=== PATIENT | female | born 1950 | race Caucasian/White ===

== ENCOUNTER → 2020-12-06 10:20 | Outpatient (CLI) | payer MEDICARE, SELFPAY ==
--- NOTE | ~2020-12-06 | MM_ITS ---
EXAMINATION: MM screening [facility] w jayde HISTORY: Screening mammogram TECHNIQUE: Craniocaudal and mediolateral oblique 3-D tomosynthesis images were obtained and synthetic 2-D images were generated. CAD analysis was submitted and interpreted. COMPARISON: 07/01/2016, 10/16/2013 bilateral digital screening mammogram examinations BREAST PARENCHYMAL COMPOSITION: There are scattered areas of fibroglandular density. FINDINGS: There is no evidence of suspicious mass, calcification, or architectural distortion to sugg est malignancy in either breast. There has been no suspicious interval change. IMPRESSION: 1. No mammographic evidence of malignancy. 2. Recommend routine screening mammography in one year. BI-RADS Category 1: Negative Reviewed, dictated and finalized at location A.
--- NOTE | ~2020-12-06 | DEXA_ITS ---
Bone Density Report Name: Joya Mota Age: 70 Sex: Female Ethnicity: White Date of : 1950 Indication: osteopenia; height loss; inflammatory bowel disease; history of glucocorticoids; prior fracture; Referring Provider: Jammie Castanon Study: Bone densitometry was performed. Exam Date: December 06, 2020 Accession number: [id number] Bone Density: Region BMD T-score Z-score Classification AP Spine (L1-L4) 0.742 -2.8 -0.6 Osteoporosis Femoral Neck (Left) 0.512 -3.0 -1.2 Osteoporosis Total Hip (Left) 0.676 -2.2 -0.6 Osteopenia Femoral Neck (Right) 0.498 -3.2 -1.3 Osteoporosis Total Hip (Right) 0.654 -2.4 -0.8 Osteopenia Total Hip Mean 0.665 -2.3 -0.7 Osteopenia World Health Organization criteria for BMD impression classify patients as: Normal (T-score at or above -1.0), Osteopenia (T-score between -1.0 and -2.5), or Osteoporosis (T-score at or below -2.5). 10-year Fracture Risk: FRAX not reported because: Some T-score for Spine Total or Hip Total or Femoral Neck at or below -2.5 Previous Exams: Region Exam Age BMD T-score BMD Change BMD Change Date g/cm2 vs Baseline vs Previous AP Spine(L1-L4) 12/06/2020 70 0.742 -2.8 -0.113* -0.113* 10/16/2013 63 0.855 -1.7 Total Hip(Left) 12/06/2020 70 0.676 -2.2 -0.048* -0.048* 10/16/2013 63 0.724 -1.8 Total Hip(Right) 12/06/2020 70 0.654 -2.4 -0.070* -0.070* 10/16/2013 63 0.724 -1.8 *Denotes significance at 95% confidence level, LSC for AP Spine = 0.022 g/cm2, LSC for Total Hip = 0.027 g/cm2 Clinical Information Provided by Patient: Has had a low trauma fracture Has taken Glucocorticoids Has used the following medications: Vitamin D, prednisone in the past Has the following medical conditions: Inflammatory bowel diseases Patient maximum height was 64 Menopause Age: 51 Onset of menses at age 15 Number of children 0 Impression: The patient has established osteoporosis, based on the Right Femoral Neck T-score and the existence of a prior fracture. The patient has risk factors, including: previous fracture, history of glucocorticoid therapy. The BMD for the AP Spine(L1-L4) decreased, changing by -0.113 since the last DXA exam. The BMD for the Total Hip(Left) decreased, changing by -0.048 since the last DXA exam. The BMD for the Total Hip(Right) decreased, changing by -0.070 since the last DXA exam. Discussion: HIGH RISK OF FRACTURE. BONE DENSITY IS UN
== END ==
DX: Z12.31 Encounter for screening mammogram for malignant neoplasm of breast (principal); Z78.0 Asymptomatic menopausal state; M85.89 Other specified disorders of bone density and structure, multiple sites; M81.0 Age-related osteoporosis without current pathological fracture
CPT/HCPCS: 77063; 77067; 77080

== ENCOUNTER → 2022-01-21 13:48 | Outpatient (CLI) | payer MEDICARE, SELFPAY ==
--- NOTE | ~2022-01-21 | MM_ITS ---
EXAMINATION: MM screening [facility] BI w jayde HISTORY: Screening TECHNIQUE: Craniocaudal and mediolateral oblique 3-D tomosynthesis images were obtained and synthetic 2-D images were generated. CAD analysis was submitted and interpreted. COMPARISON: Comparison to multiple prior studies sequentially, with oldest reviewed study dated 11/2011. BREAST PARENCHYMAL COMPOSITION: There are scattered areas of fibroglandular density. FINDINGS: There is no evidence of suspicious mass, calcification, or architectural distortion to sugg est malignancy in either breast. There has been no suspicious interval change. IMPRESSION: 1. No mammographic evidence of malignancy. 2. Recommend routine screening mammography in one year. BI-RADS Category 1: Negative Reviewed, dictated and finalized at location A.
== END ==
PROVIDERS: PCP Family Medicine
DX: Z12.31 Encounter for screening mammogram for malignant neoplasm of breast (principal)
CPT/HCPCS: 77063; 77067

== ENCOUNTER → 2022-05-04 09:17 | Outpatient (CLI) | payer MEDICARE, SELFPAY ==
--- NOTE | ~2022-05-04 | XR_ITS ---
EXAMINATION: XR shoulder LT min 2V INDICATION: Left shoulder pain TECHNIQUE: Four views of the left shoulder are submitted. COMPARISON: None FINDINGS: Normal alignment. No fracture. There is mild glenohumeral and acromioclavicular joint osteo arthritis. Surgical changes are noted in the elbow. Soft tissues are unremarkable. There is at least moderate cervical spondylosis. IMPRESSION: 1. Mild osteoarthritis without acute osseous abnormality. Reviewed, dictated and finalized at location A.
--- NOTE | ~2022-05-04 | XR_ITS ---
EXAMINATION: XR chest 2V DATE: 05/04/2022 09:40 INDICATION: Chest pain, unspecified TECHNIQUE: PA and lateral views of the chest are obtained. COMPARISON: 02/29/2008 FINDINGS: The lungs are free of acute opacities. No pleural effusion or pneumothorax. The cardiomedia stinal silhouette is normal. There is moderate thoracic spondylosis. There are changes of interval ca rdiac surgery. IMPRESSION: 1. No acute cardiopulmonary abnormality. Reviewed, dictated and finalized at location A.
== END ==
PROVIDERS: PCP Family Medicine; Visit Provider Physician Assistant Medical
DX: R07.89 Other chest pain (principal); M19.012 Primary osteoarthritis, left shoulder
CPT/HCPCS: 71046; 73030

== ENCOUNTER 2023-06-28 01:14 | Day surgery (SDC) | payer MEDICARE, SELFPAY ==
[2023-06-13 13:09] VITALS: BMI 31.0
--- NOTE | 2023-06-24 11:50 | SUR.PREOP ---
Patient called regarding upcoming procedure. Reviewed preop instructions, appointment times, and procedure prep.
[2023-06-28 08:37] VITALS: BP 154/96; PULSE 81; RESP 17; TEMP 36.3; O2SAT 100; BMI 29.5
[2023-06-28] MEDS: LACTATED RINGERS 1,000 ML 150 ML IV CONT (08:47)
--- NOTE | 2023-06-28 09:06 | WPDANESEPPF ---
Anes - Initial Pre Proc Eval Procedure: Operation Date: 06/28/23 10:00 Proposed Procedures p Screening Colonoscopy - Eladio Gallo MD Date/Time: 06/28/23 09:06 Surgeon: Eladio Gallo MD Pre Op Diagnosis: neoplasm screening Patient Data Age: 72 Gender: F Height: 1.63 m Weight: 78.2 kg Last Vital Signs Temp 97.4 F L 06/28/23 08:37 Pulse 81 06/28/23 08:37 Resp 17 06/28/23 08:37 BP 154/96 H 06/28/23 08:37 Pulse Ox 100 06/28/23 08:37 O2 Del Method Room Air 06/28/23 08:37 Allergies Allergy/AdvReac Type Severity Reaction Status Date / Time Sulfa (Sulfonamide Allergy Unknown Anaphylaxis Verified 06/28/23 08:35 Antibiotics) Home Medications Medication Instructions Recorded Confirmed Type buspirone 15 mg tablet 15 mg PO BID 05/19/21 06/28/23 History duloxetine 60 mg capsule,delayed 60 mg PO DAILY 05/19/21 06/28/23 History release (Cymbalta) niacin 500 mg tablet 500 mg PO DAILY 05/19/21 06/28/23 History ascorbic acid (vitamin C) 500 mg 250 mg PO DAILY 01/24/23 06/28/23 History tablet cholecalciferol (vitamin D3) 10 10 mcg PO DAILY 01/24/23 06/28/23 History mcg (400 unit) capsule omega 2-tqk-exo-fish oil 60 mg-90 1 cap PO DAILY 01/24/23 06/28/23 History mg-500 mg capsule (Fish Oil) omeprazole 20 mg capsule,delayed 20 mg PO DAILY #90 caps 04/13/23 06/28/23 Rx release mesalamine 500 mg capsule,extended 500 mg PO QID #120 caps 04/29/23 06/28/23 Rx release (Pentasa) atorvastatin 40 mg tablet (Lipitor) 40 mg PO DAILY #90 tabs 06/02/23 06/28/23 Rx citalopram 20 mg tablet 20 mg PO DAILY 06/13/23 06/28/23 History Patient hx anesthesia problems: none Family hx anesthesia problems: none Results Review: All pre-operative results and documents have been reviewed as part of the pre-operative evaluation. PMFSH Past Medical History Medical History Anxiety Bilateral calf pain CAD (coronary artery disease) Colon cancer screening Crohn disease IBS (irritable bowel syndrome) Surgical History Surgical History H/O heart bypass surgery November 2010 Family History Family History Father Heart disease Mother Hypertension Heart disease Sibling Breast cancer Social History Social History Smoking status: Never smoker Second hand tobacco smoke exposure: No Alcohol intake: never Substance use: never Substance use type: does not use Living arrangements: with family Occupation/Education: retired Gender identity (if verbalized by the patient): Female Sexual Orientation (if Verbalized by the Patient): Straight or Heterosexual Spiritual care concerns: No Agree to blood products: Yes Anes - Eval Final PreProcedure Day of Procedure 06/28/23 09:06 Patient weight: obese Heart: regular rate and rhythm Lungs: clear to auscultation Airway: Mallampati scale class II Neurological: alert and oriented Last oral intake: >/= 8 hours ASA classification: III Emergent: no Anesthetic plan: proceed Anesthesia type and monitoring: general GIVS and standard monitoring Results Review: All pre-operative results and documents have been reviewed as part of the pre-operative evaluation. Informed Consent: The patient's anesthetic plan and its attendant risks and benefits were discussed with the patient/family/POA. Questions were solicited and answers provided to the satisfaction of the patient/family/POA.
--- NOTE | 2023-06-28 09:11 | PM.HPGS ---
History of Present Illness History of Present Illness Consent: Risks, benefits, and alternatives have been discussed and questions answered. Patient agrees to proceed with procedure. Chief complaint: neoplasm screening Narrative: Joya Mota is a 72 year old female here for colonoscopy, last one about 8 years ago, diagnosed with crohn's about 30 years ago after had abnormal ileum , denies any flare up since, using pentasa Review of Systems Constitutional: Constitutional: Denies headache(s) and Denies weakness Eyes: Eyes: Denies blurry vision ENT: Reports Normal hearing present, Denies headache(s) and Denies neck pain Cardiovascular: Cardiovascular: Denies chest pain and Denies dyspnea Respiratory: Respiratory: Denies dyspnea Gastrointestinal: Gastrointestinal: Reports no additional gastrointestinal complaints Genitourinary: Genitourinary: Denies dysuria Musculoskeletal: Musculoskeletal: Denies neck pain Integumentary/Breasts: Skin/Breast: Denies dry skin Neurologic: Reports Normal hearing present, Denies headache(s) and Denies weakness Psychiatric: Psychiatric: Denies anxiety Endocrine: Endocrine: Denies change in body appearance Hematologic/Lymphatic: Hematologic/Lymphatic: Denies easy bleeding Allergic/Immunologic: Allergic/Immunologic: Denies urticaria PMF Past Medical History Medical History Anxiety Bilateral calf pain CAD (coronary artery disease) Colon cancer screening Crohn disease IBS (irritable bowel syndrome) Surgical History Surgical History H/O heart bypass surgery November 2010 Family History Family History Father Heart disease Mother Hypertension Heart disease Sibling Breast cancer Social History Social History Smoking status: Never smoker Second hand tobacco smoke exposure: No Alcohol intake: never Substance use: never Substance use type: does not use Living arrangements: with family Occupation/Education: retired Gender identity (if verbalized by the patient): Female Sexual Orientation (if Verbalized by the Patient): Straight or Heterosexual Spiritual care concerns: No Agree to blood products: Yes Meds Home Medications and Allergies Home Medications Medication Instructions Recorded Confirmed Type buspirone 15 mg tablet 15 mg PO BID 05/19/21 06/28/23 History duloxetine 60 mg capsule,delayed 60 mg PO DAILY 05/19/21 06/28/23 History release (Cymbalta) niacin 500 mg tablet 500 mg PO DAILY 05/19/21 06/28/23 History ascorbic acid (vitamin C) 500 mg 250 mg PO DAILY 01/24/23 06/28/23 History tablet cholecalciferol (vitamin D3) 10 10 mcg PO DAILY 01/24/23 06/28/23 History mcg (400 unit) capsule omega 9-hou-clp-fish oil 60 mg-90 1 cap PO DAILY 01/24/23 06/28/23 History mg-500 mg capsule (Fish Oil) omeprazole 20 mg capsule,delayed 20 mg PO DAILY #90 caps 04/13/23 06/28/23 Rx release mesalamine 500 mg capsule,extended 500 mg PO QID #120 caps 04/29/23 06/28/23 Rx release (Pentasa) atorvastatin 40 mg tablet (Lipitor) 40 mg PO DAILY #90 tabs 06/02/23 06/28/23 Rx citalopram 20 mg tablet 20 mg PO DAILY 06/13/23 06/28/23 History Allergies Allergy/AdvReac Type Severity Reaction Status Date / Time Sulfa (Sulfonamide Allergy Unknown Anaphylaxis Verified 06/28/23 08:35 Antibiotics) Vital Signs Vital Signs - 24 hr 06/28/23 08:37 Temperature 97.4 F L Pulse Rate 81 Respiratory Rate 17 Blood Pressure 154/96 H Pulse Oximetry 100 Oxygen Delivery Room Air Exam Const: General: comfortable and no acute distress HENMT: Face/Nose/Sinus: Normal nares present Eyes: General: appearance normal, both eyes and all related structures Neck: Neck: no JVD Resp: Auscultation: clear to ausc
[2023-06-28 09:29] VITALS: BP 135/78; PULSE 70; RESP 20; O2SAT 99
[2023-06-28 09:39] VITALS: BP 127/81; PULSE 66; RESP 20; O2SAT 98
[2023-06-28 09:49] VITALS: BP 133/74; PULSE 68; RESP 20; O2SAT 99
== END 2023-06-28 10:04 | disposition home or self-care (01) ==
PROVIDERS: PCP Family Medicine; Visit Provider Internal Medicine Gastroenterology
PROC: 0DJD8ZZ Inspection of Lower Intestinal Tract, Via Natural or Artificial Opening Endoscopic (ICD-10-PCS; CPT 45378; principal; 2023-06-28 10:00)
DX: Z12.11 Encounter for screening for malignant neoplasm of colon (principal); K50.90 Crohn's disease, unspecified, without complications; K57.30 Diverticulosis of large intestine without perforation or abscess without bleeding; K64.8 Other hemorrhoids; I25.10 Atherosclerotic heart disease of native coronary artery without angina pectoris
CPT/HCPCS: G0121; 88305; J2704; J7120

== ENCOUNTER 2023-12-06 12:31 | Emergency (ER) | payer MEDICARE, SELFPAY ==
[2023-12-06 12:31] VITALS: BP 133/95; PULSE 76; RESP 20; TEMP 36.2; O2SAT 97
--- NOTE | 2023-12-06 12:35 | ED.BACK ---
HPI - Back Pain/Injury General Chief Complaint: Urogenital-Female Stated Complaint: L HIP PAIN Time Seen by Provider: 12/06/23 12:34 Source: patient Mode of arrival: ambulatory Limitations: no limitations History of Present Illness HPI Narrative: 73 YEARS OLD WHITE FEMALE CAME TO THE EMERGENCY ROOM BY PRIVATE CAR COMPLAINING OF LEFT BUTTOCK PAIN RADIATING TO THE FRONT OF HER LEFT THIGH, CAUSING VAGINAL ITCHING, SHE DENIES VAGINAL DISCHARGE OR BLEEDING. PATIENT REPORTS THE SYMPTOMS ARE CHRONIC WITH FLARE UP EVERY NOW AND THEN, BEEN RECEIVED CORTISONE SHOTS IN THE PAST WAS REMARKABLE IMPROVEMENT. UNABLE TO GO TO HER PAIN MANAGEMENT PHYSICIAN OR HER FAMILY PHYSICIAN AT THIS TIME. SHE DENIES ANY FEVER, CHILLS, NAUSEA, VOMITING, TRAUMA OR ABDOMINAL PAIN. SHE DENIES ANY URINARY SYMPTOMS. OR SKIN RASH. PATIENT IS SCHEDULED TO SEE HER CHIROPRACTOR TOMORROW PATIENT DENIES ANY DIFFERENCE BETWEEN HER PAIN TODAY AND PREVIOUS FLARE UP Related Data Home Medications Medication Instructions Recorded Confirmed buspirone 15 mg tablet 15 mg PO BID 05/19/21 07/27/23 duloxetine 60 mg capsule,delayed 60 mg PO DAILY 05/19/21 07/27/23 release (Cymbalta) niacin 500 mg tablet 500 mg PO DAILY 05/19/21 07/27/23 ascorbic acid (vitamin C) 500 mg 250 mg PO DAILY 01/24/23 07/27/23 tablet cholecalciferol (vitamin D3) 10 10 mcg PO DAILY 01/24/23 07/27/23 mcg (400 unit) capsule omega 0-lsc-nvm-fish oil 60 mg-90 1 cap PO DAILY 01/24/23 07/27/23 mg-500 mg capsule (Fish Oil) citalopram 20 mg tablet 20 mg PO DAILY 06/13/23 07/27/23 Allergies Allergy/AdvReac Type Severity Reaction Status Date / Time Sulfa (Sulfonamide Allergy Unknown Anaphylaxis Verified 07/27/23 10:01 Antibiotics) Review of Systems Review of Systems: All systems reviewed & are unremarkable except as noted in HPI and below PMFSH Past Medical History Medical History Anxiety Bilateral calf pain CAD (coronary artery disease) Colon cancer screening Crohn disease IBS (irritable bowel syndrome) Surgical History Surgical History H/O heart bypass surgery November 2010 Family History Family History Father Heart disease Mother Hypertension Heart disease Sibling Breast cancer Social History Social History Smoking status: Never smoker Second hand tobacco smoke exposure: No Alcohol intake: never Substance use: never Substance use type: does not use Living arrangements: with family Occupation/Education: retired Gender identity (if verbalized by the patient): Female Sexual Orientation (if Verbalized by the Patient): Straight or Heterosexual Spiritual care concerns: No Agree to blood products: Yes Exam Narrative: GENERAL APPEARANCE: WELL-DEVELOPED, WELL-NOURISHED SKIN: NORMAL COLOR HEAD: NORMOCEPHALIC, NONTRAUMATIC EYES: CLEAR CONJUNCTIVA ENT: OROPHARYNX NORMAL, EARS NORMAL, NOSE NORMAL NECK: SUPPLE, NONTENDER CHEST AND RESPIRATORY: AIRWAY PATENT, NO RESPIRATORY DISTRESS, NO ACCESSORY MUSCLE USE HEART: REGULAR RATE/RHYTHM ABDOMEN: SOFT, NONTENDER, NO ORGANOMEGALY, QUIET BOWEL SOUNDS VASCULAR: NORMAL PERIPHERAL PULSES, NORMAL CAPILLARY REFILL. MUSCULOSKELETAL: SLIGHT TENDERNESS AT THE CENTER OF LEFT BUTTOCKS, NO BRUISES, NO SWELLING OR RASH NEUROLOGIC: ALERT AND ORIENTED ?3, MANAGER VALUATION IS NORMAL TESTED, NO GROSS MOTOR DEFICIT MDM - Back Pain/Injury Differential Diagnosis Differential diagnosis: Likely other ( SACROILIAC ARTHRITIS, SCIATICA) Medical Leon
[2023-12-06 13:08] LABS: Appearance Urine Clear (Clear); Bilirubin Urine Negative (Negative); Blood Urine Negative (Negative); Color Urine Yellow (Yellow); Glucose Urine UA Negative (Negative); Ketones Urine Trace (Negative); Leukocyte Esterase Ur Trace LEU/UL (Negative); Nitrate Urine Negative (Negative); Protein Urine Negative (Negative); Urobilinogen Urine 0.2 mg/dL (0.2-1.0)
[2023-12-06 13:22] LABS: Add Urine Microscopic? YES; RBC Urine None seen /hpf (0-2)
[2023-12-06 13:23] LABS: Bacteria Urine 1+ /hpf; Squamous Epithelial Cell Urine Few /hpf (Few); WBC Urine 0-3 /hpf (0-3)
[2023-12-06 13:30] VITALS: BP 148/84; PULSE 74; RESP 20; TEMP 36.9; O2SAT 97
== END 2023-12-06 13:30 | disposition home or self-care (01) ==
LOC: CHSED 13:16
PROVIDERS: Emergency Provider Emergency Medicine; PCP Family Medicine
DX: M54.50 Low back pain, unspecified (principal); M79.605 Pain in left leg; I25.10 Atherosclerotic heart disease of native coronary artery without angina pectoris; K50.90 Crohn's disease, unspecified, without complications; F41.9 Anxiety disorder, unspecified; Z95.1 Presence of aortocoronary bypass graft
CPT/HCPCS: 81001; 99283

== ENCOUNTER 2024-01-23 10:00 | Outpatient (CLI) | payer MEDICARE, SELFPAY ==
--- NOTE | ~2024-01-23 | MR_ITS ---
EXAMINATION: MR lumbar spine wo con DATE: 01/23/2024 10:33 INDICATION: Radiculopathy, site unspecified. Low back pain. Left leg pain. TECHNIQUE: Magnetic resonance imaging (MRI) of the lumbar spine was performed without intravenous con trast. Sequences included sagittal T2-weighted FSE, sagittal T2-weighted FS FSE, sagittal T1-weighted FSE, and axial T2-weighted FSE. COMPARISON: Lumbar spine MRI 02/11/2016 FINDINGS: There is 13 degrees dextroscoliosis of lumbar spine. There are Schmorl's nodes at multiple levels. There is mildly decreased disc height at L2-L3 and moderately decreased disc height at L4-L5 and L5-S1. The distal spinal cord signal intensity is normal. The conus medullaris is at L1-L2. The f ollowing disc levels are specifically discussed: L1-L2: The disc is bulging and has an annular fissure. There is mild bilateral facet joint osteoarthr itis. There is mild bilateral neural foraminal stenosis. There is mild central canal stenosis. L2-L3: The disc is bulging. There is severe right and moderate left facet joint osteoarthritis. There is mild bilateral neural foraminal stenosis. There is mild central canal stenosis. L3-L4: The disc is bulging. There is moderate bilateral facet joint osteoarthritis. There is mild munira ateral neural foraminal stenosis. There is mild central canal stenosis. L4-L5: The disc is bulging with superimposed left central extrusion. There is moderate bilateral face t joint osteoarthritis. There is mild bilateral neural foraminal stenosis. There is mild central deann l stenosis. L5-S1: The disc is bulging and has an annular fissure. There is moderate and mild left facet joint os teoarthritis. There is mild bilateral neural foraminal stenosis. There is mild central canal stenosis . IMPRESSION: 1. Moderate lumbar spondylosis, worsened from 02/11/2016. Reviewed, dictated and finalized at location A.
== END 2024-01-23 10:01 ==
LOC: MICIMG 10:01
PROVIDERS: PCP Family Medicine; Visit Provider Physician Assistant Medical
DX: M43.06 Spondylolysis, lumbar region (principal)
CPT/HCPCS: 72148

== ENCOUNTER 2024-03-01 12:16 | Outpatient (CLI) | payer MEDICARE, SELFPAY ==
--- NOTE | ~2024-03-01 | DEXA_ITS ---
Bone Density Report Name: LESLIE GROSS Age: 73 Sex: Female Ethnicity: White Date of : 1950 Indication: postmenopausal; screening for osteoporosis; Referring Provider: OC LI Study: Bone densitometry was performed. Exam Date: March 01, 2024 Accession number: [id number] Bone Density: Region BMD T-score Z-score Classification AP Spine(L1-L4) 0.817 -2.1 0.3 Osteopenia Femoral Neck (Left) 0.541 -2.8 -0.7 Osteoporosis Total Hip (Left) 0.753 -1.5 0.2 Osteopenia Femoral Neck (Right) 0.539 -2.8 -0.7 Osteoporosis Total Hip (Right) 0.682 -2.1 -0.4 Osteopenia Total Hip Mean 0.718 -1.8 -0.1 Osteopenia World Health Organization criteria for BMD impression classify patients as: Normal (T-score at or above -1.0), Osteopenia (T-score between -1.0 and -2.5), or Osteoporosis (T-score at or below -2.5). 10-year Fracture Risk: FRAX not reported because: Some T-score for Spine Total or Hip Total or Femoral Neck at or below -2.5 Clinical Information Provided by Patient: Menopause Age: 51 Impression: The patient has osteoporosis, based on the Left Femoral Neck T-score. Discussion: INCREASED RISK OF FRACTURE. BONE DENSITY IS UNDESIRABLY LOW AT ONE OR MORE SKELETAL SITES, CONSISTENT WITH POSTMENOPAUSAL OSTEOPOROSIS. This patient's lowest T-score meets the World Health Organization's (WHO) criteria for osteoporosis at one or more sites (T-score -2.5 or below). In untreated patients, the risk of osteoporotic fracture increases approximately two-fold for each 1.0 SD decrease in T-score. Low bone density is not the only risk factor for fracture; also consider factors such as patient's age, frailty or poor health, risk of falling, risk of injury, previous osteoporotic fracture, family history of osteoporosis, cigarette smoking, low body weight, etc. Not everyone with low bone mineral density has osteoporosis; osteomalacia and other metabolic bone disorders should also be considered. Patients who have osteoporosis should be evaluated for specific diseases and conditions (secondary causes) that may cause or contribute to bone loss. The [place] Association of Clinical Endocrinologists (AACE) and National Osteoporosis Foundation (NOF) recommend pharmacologic intervention for all postmenopausal women whose T-score is in this range. The patient should follow a healthful lifestyle (good nutrition with adequate calcium and vitamin D, and appropriate weight-bearing exercise). Follow-Up: Consider a repeat BMD and Vertebral Fracture Assessment (VFA) exam in 2 years or sooner if medically necessary, to reassess this patient's status. Reported by: FRANSISCA on 03/01/2024 12:51:00 PM. Reviewed, dictated and finalized at location AMichelle BURKETT
== END 2024-03-01 12:17 | disposition home or self-care (01) ==
LOC: ANHIMG 12:17
PROVIDERS: PCP Family Medicine; Visit Provider Physician Assistant Medical
DX: M81.8 Other osteoporosis without current pathological fracture (principal); N95.1 Menopausal and female climacteric states; M85.88 Other specified disorders of bone density and structure, other site; M85.852 Other specified disorders of bone density and structure, left thigh; M85.851 Other specified disorders of bone density and structure, right thigh
CPT/HCPCS: 77080

== ENCOUNTER 2024-03-13 13:12 | Outpatient (CLI) | payer MEDICARE, SELFPAY ==
[2024-03-13 15:06] LABS: Vitamin D 25 Hydroxy 57.7 ng/mL
== END 2024-03-13 13:13 | disposition home or self-care (01) ==
PROVIDERS: PCP Family Medicine; Visit Provider Physician Assistant Medical
DX: E55.9 Vitamin D deficiency, unspecified (principal)
CPT/HCPCS: 36415; 82306

== ENCOUNTER 2024-03-22 12:53 | Outpatient (CLI) | payer MEDICARE, SELFPAY ==
[2024-03-22 13:49] LABS: Hematocrit 42.2 % (37.0-47.0); Hemoglobin 13.8 g/dL (12.0-15.0); Mean Corpuscular HGB Conc 32.7 g/dl (32-36); Mean Corpuscular Hemoglobin 29.7 pg (26-34); Mean Corpuscular Volume 90.9 fl (80-100); Mean Platelet Volume 10.2 fl (7.4-10.4); Platelet Count Result 222 k/mm3 (150-375); Red Blood Count 4.64 M/mm3 (4.2-5.4); Red Cell Distribution Width 12.7 % (11.5-14.5); White Blood Count 5.9 K/mm3 (4.5-10.0)
[2024-03-22 14:26] LABS: Alanine Aminotransferase 17 U/L (6-35); Albumin Level 3.9 g/dL (3.5-5.1); Alkaline Phosphatase 111 U/L (38-126); Anion Gap 7 mmol/L (4-12); Aspartate Amino Transferase 25 U/L (14-36); Bilirubin,Total 0.5 mg/dL (0.2-1.3); Blood Urea Nitrogen 17 mg/dL (7-17); CRP < 0.5 mg/dL (<1.0); Calcium 9.3 mg/dL (8.4-10.2); Carbon Dioxide 28 mmol/L (22-30); Chloride 100 mmol/L (98-107); Estimated Glomerular Filt Rate 44; Glucose 115 mg/dL (65-110); Potassium 4.2 mmol/L (3.4-5.0); Sodium 135 mmol/L (137-145)
[2024-03-22 14:58] LABS: Erythrocyte Sedimentation Rate 48 mm/hr (0-20)
== END 2024-03-22 12:54 | disposition home or self-care (01) ==
LOC: ANHLAB 12:58
PROVIDERS: PCP Family Medicine; Visit Provider Internal Medicine Gastroenterology
DX: K50.90 Crohn's disease, unspecified, without complications (principal)
CPT/HCPCS: 36415; 80053; 85027; 85652; 86140

== ENCOUNTER 2024-09-04 13:29 | Outpatient (CLI) | payer MEDICARE, SELFPAY ==
--- OUTSIDE RECORDS SUMMARY | 2024-09-04 14:19 | XMS_ITS | Clinical Summary ---
Author Organization [facility] [address] Address [address] [place] [address] Care Team Providers Care Billboard Poster Helper Name Role Phone Gerda Saenz MD Primary Care Provider [phone] Allergies Active Allergy Reactions Criticality Noted Date Comments Sulfa (Sulfonamide Antibiotics) Medications busPIRone (BUSPAR) 15 mg tablet take 1 tablet (15MG) by oral route 2 times every day 0 012 Active aspirin (ASPIRIN LOW DOSE) 81 mg tablet take 1 Tablet (81MG) by oral route every day 0 012 Active niacin ER (NIASPAN EXTENDED-RELEASE) 500 mg CR tablet take 1 tablet (500MG) by oral route every day at bedtime after a low-fat snack [address] (CYMBALTA) 60 mg capsule Take 1 capsule (60 mg total) by mouth daily Active citalopram (CeleXA) 20 mg tablet Active vit B zlxw-C-hnaej acid-vit D3 800 mcg- 2,000 unit tablet,chewable Take by mouth Active omeprazole (PriLOSEC) 20 mg capsule 022 Active alendronate (FOSAMAX) 70 mg tabletIndications:A ge-related osteoporosis without current pathological fracture 1 tablet by mouth weekly in morning with full glass of water on empty stomach.Do not take anything else by mouth or lie down for next 30 min 4 tablet 11 022 Active folic acid (FOLVITE) 1 mg tablet Take 1 tablet (1 mg total) by mouth daily 30 tablet 3 022 Active atorvastatin (LIPITOR) 40 mg tablet TAKE ONE TABLET BY MOUTH DAILY 30 tablet [address] (CYMBALTA) 30 mg capsule Take 1 capsule (30 mg total) by mouth daily 024 Active ezetimibe (ZETIA) 10 mg tablet TAKE 1 TABLET (10 MG TOTAL) BY MOUTH DAILY 90 tablet 2 025 2025 Active mesalamine (Pentasa) 500 mg CR capsuleIndications: Crohn's disease with complication, unspecified gastrointestinal tract location (HCC) Take 1 capsule (500 mg total) by mouth 4 (four) times a day 60 capsule 022 2024 Discontinued(T herapy completed) ezetimibe (ZETIA) 10 mg tablet Take 1 tablet (10 mg total) by mouth daily 90 tablet 2 024 2024 Discontinued Active Problems Problem Noted Date Diagnosed Date Age-related osteoporosis wit hout current pathological fracture 10/15/2021 Assessment & Plan (10/15/2021 11:19 AM CDT): Recent DEXA shows osteoporosis, patient agreeable to starting bisphosphonate, as she has history of pathological fracture, as well as steroid use. Discussed removing fall hazards, including riding horses, and to continue calcium and vitamin D supplement, along with weight bearing exercises. Enthesopathy of knee 09/30/2020 Coronary artery disease invo lving nikolski coronary artery of nikolski heart without angina pectoris 12/26/2018 Dyslipidemia 06/28/2017 Assessment & Plan (10/15/2021 11:17 AM CDT): Due for lab, will continue on statin and ASA given CAD. Will continue to monitor. Closed fracture of capitulum of humerus 07/09/20 13 Crohn's disease (CMS/HCC) 06/12/2012 Assessment & Plan (10/15/2021 11:18 AM CDT): Stable on mesalamine - is in between GI providers, has an upcoming appointment in November. Will update colonoscopy at that time. Exercise-induced angina 01/11/2011 Hx of CABG 01/11/2011 Anxiety Assessment & Plan (10/15/2021 11:18 AM CDT): Well controlled on current regimen, sees psychiatry. Resolved Problems Problem Noted Date Diagnosed Date Resolved Date Dyspnea on exertion 01/01/2020 10/16/19 22 Hx of CABG 12/26/2018 09/30/2020 Pruritus of vagina 12/31/2015 2 Urinary tract bacterial infections 12/17/2015 10/15/2021 Encounters Date Type Department Care Team Description 08/30/2024 10:30 AM CLINICAL EVALUATOR Office Visit [facility] [address] [place] [address] Carlos Manuel Scott MD Hx of CABG (Primary Dx) from Last 3 Months Immunizations Name Administration Dates Next Due Flucelvax Influenza Quad 07/22/2021 Influenza, Quadrivalent, Mariah l Culture-based MDCK, Preservative Free, Antibiotic Free, Intramuscular 10/08/2019 Influenza, Quadrivalent, Split, Intramuscular Pfizer SARS-CoV-2 Monovalent Vaccination (12+ Yrs) PURPLE 10/23/2020,09/24/2020 Surgical History Surgery Date Site/Laterality Comments CORONARY ARTERY BYPASS GRAFT 07/25/2010 - 07/24/2011 Medical History Medical History Date Comments Crohn's disease ([facility]/HCC) (HCC) Crohn's Disease Anxiety Depression Coronary artery disease invo lving nikolski coronary artery of nikolski heart without angina pectoris 12/26/2018 Dyslipidemia 06/28/2017 Family History Medical History Relation Name Comments Heart attack Father Myocardial Infa rction; Heart disease Father Hyperlipidemia Father Heart attack Maternal Grandmother Myocard ial Infarction; Heart disease Maternal Grandmother Hyperlipidemia Maternal Grandmother Hypertension Maternal Grandmother Depression Mother Heart attack Mother Myocardial Infa rction; Heart disease Mother Hyperlipidemia Mother Hypertension Mother Relation Name Status Comments Father Maternal Grandmother Mother Social History Tobacco Use Types Packs/Day Years Used Date Smoking Tobacco: Never Smokeless Tobacco: Never Tobacco Cessation:Counseling Given: Not Answered Comments:Smoking History Packs/day: 0 Packs Alcohol Use Standard Drinks/Week Comments No 0 (1 standard drink = 0.6 oz pur e alcohol) AUDIT-C Answer Date Recorded Q1: How often do you have a drink containing alc ohol? Never 10/15/2021 Average Number of Drinks Not on file 022 Frequency of Binge Drinking Not on file 09/23 PHQ-2 Answer Date Recorded PHQ-2 Total Score (If total score is 3 or more points, staff should administer the PHQ-9) 0 10/15/2021 Comments Unknown Sex and Gender Information Value Date Recorded Sex Assigned at Not on file Legal Sex Female 1:58 AM CLINICAL EVALUATOR Gender Identity Not on file Sexual Orientation Not on file Obstetrics History Last Filed Vital Signs Vital Sign Reading Time Taken Comments Blood Pressure 118/62 08/30/2024 10:29 AM CLINICAL EVALUATOR Pulse 94 08/30/2024 10:29 AM CLINICAL EVALUATOR Temperature 35.8 C (96.4 F) 09/30/2020 1:23 PM CLINICAL EVALUATOR Respiratory Rate 98 02/15/2023 9:32 AM CDT Oxygen Saturation 98% 08/30/2024 10:29 AM CLINICAL EVALUATOR Inhaled Oxygen Concentration - - Weight 86.3 kg (190 lb 4.8 oz) 08/30/2024 10:29 AM CLINICAL EVALUATOR Height 162.6 cm (5' 4 ) 08/30/2024 10:29 AM CLINICAL EVALUATOR Body Mass Index 32.66 08/30/2024 10:29 AM CLINICAL EVALUATOR Plan of Treatment Health Maintenance Due Date Last Done Comments Colon Cancer Screening-Colonoscopy 1950 Hepatitis C Screening 1950 DTaP/Tdap/Td Vaccine (1 - Tdap) 1960 Hepatitis B Screening 1967 Zoster Vaccine (1 of 2) 1999 Pneumococcal vaccine 65+ (1 of 1 - PCV) 2014 Depression Screening 10/15/2022 10/15/2021, 10/01/19 21 Fall Risk Assessment 10/15/2022 10/15/2021, 10/01/19 21 Well Visit 65+ 10/15/2022 10/15/2021, 09/30/2020 Osteoporosis Screening-Bone Density Scan 12/06/2022 12/06/2020 Covid-19 Vaccine (3 - 2023-2 5 season) 2024 10/23/2020, 09/24/2020 Influenza Vaccine (#1) 2024 2, 07/22/2021, 10/08/2019, Additional history exists Procedures Procedure Name Priority Date/Time Associated Diagnosis Comments HM DEXA SCAN Routine 12/06/2020 from Last 3 Months or Most Recently Relevant to Health Maintenance Results * (ABNORMAL) HM DEXA SCAN (12/06/2020) Scribed HM Deca Scan Abnormal 12/06/2020 Historical Provider MD HEALTH MAINTENANCE Final Result from Last 3 Months or Most Recently Relevant to Health Maintenance Insurance [employer] MEDICARE AETNA MEDICARE Care Teams Billboard Poster Helper Relationship Specialty Start Date End Date Gerda Saenz MD PCP - General Family Medicine 02/15/23
--- OUTSIDE RECORDS SUMMARY | 2024-09-04 14:19 | XMS_ITS | Referral Summary ---
Author Organization [facility] Address [address] [place] [address] Care Team Providers Care Pipeline Technician Name Role Phone Unavailable Primary Care Provider Unavailabl e Source Comments [facility],non-owned Affiliates and Associated Physician Practices is amultiple site organization consisting of ambulatory clinics and hospital sitesin [place], [place], [place] and [place]. This disclosure is being madepursuant to the Care Everywhere program and may not contain all information available regarding this patient. Last updated 18.[facility] Social History Tobacco Use Types Packs/Day Years Used Date Smoking Tobacco: Never Assessed Sex and Gender Information Value Date Recorded Sex Assigned at Not on file Gender Identity Not on file Sexual Orientation Not on file Plan of Treatment Not on file
--- OUTSIDE RECORDS SUMMARY | 2024-09-04 14:19 | XMS_ITS | Clinical Summary ---
Author Organization [facility] Address [address] [place] [address] Care Team Providers Care Exchange Trouble Shooter Name Role Phone Unavailable Primary Care Provider Unavailabl e Source Comments [facility],non-owned Affiliates and Associated Physician Practices is amultiple site organization consisting of ambulatory clinics and hospital sitesin [place], [place], [place] and [place]. This disclosure is being madepursuant to the Care Everywhere program and may not contain all information available regarding this patient. Last updated 18.[facility] Social History Tobacco Use Types Packs/Day Years Used Date Smoking Tobacco: Never Assessed Sex and Gender Information Value Date Recorded Sex Assigned at Not on file Gender Identity Not on file Sexual Orientation Not on file Plan of Treatment Health Maintenance Due Date Last Done Comments BONE DENSITY TESTING 1950 COLOGUARD (AGES 45-75) - COL ON CA SCREENING 1950 COLON MONITORING 1950 COLONOSCOPY - COLON CA SCREENING 1949 CT COLONOGRAPHY - COLON CA SCREENING 1950 Colorectal Cancer Screening 1950 FIT - COLON CA SCREENING 1950 FLEX SIG - COLON CA SCREENING 1950 LIPID TESTING 1950 MAMMOGRAM 1950 HEPATITIS C SCREENING 08/12/1967 DTAP/TDAP/TD VACCINES (1 - Tdap) 1968 PNEUMOCOCCAL VACCINE 50+ (1 of 1 - PCV) 1999 ZOSTER VACCINE (1 of 2) 1999 COVID-19 VACCINE ( - 2023-2 5 season) 2024 INFLUENZA VACCINE (#1) 2024 DEPRESSION SCREENING 07/25/2024 MEDICARE AWV CALENDAR YEAR 2024 Respiratory Syncytial Virus (RSV) Vaccine Pt: or over 60 yrs (1 - 1-dose 75+ series) 2024 HEPATITIS B VACCINE Aged Out No longe r eligible based on patient's age to complete this topic HIB VACCINE Aged Out No longer eligi ble based on patient's age to complete this topic HPV VACCINE Aged Out No longer eligi ble based on patient's age to complete this topic MENINGOCOCCAL (Group B) VACCINE Aged Out No longer eligible based on patient's age to complete this topic MENINGOCOCCAL VACCINE Aged Out No torsten cortney eligible based on patient's age to complete this topic
--- OUTSIDE RECORDS SUMMARY | 2024-09-04 14:19 | XMS_ITS | Referral Summary ---
Author Organization [facility] [address] Address [address] [place] [address] Care Team Providers Care Training Executive Name Role Phone Gerda Saenz MD Primary Care Provider [phone] Encounters Date Type Department Care Team Description 08/30/2024 10:30 AM SANDING MACHINE BUFFER Office Visit [facility] [address] [place] [address] Carlos Manuel Scott MD Hx of CABG (Primary Dx) from Last 3 Months Allergies Active Allergy Reactions Criticality Noted Date [...] (CeleXA) 20 mg tablet Active vit B bnnu-V-weewz acid-vit D3 800 mcg- 2,000 unit tablet,chewable [...] knee 09/30/2020 Coronary artery disease invo lving rincon coronary artery of rincon heart without angina pectoris 12/26/2018 Dyslipidemia 06/28/2017 Assessment & Plan (10/15/2021 11:17 AM CDT): Due for lab, will continue on statin and ASA given CAD. Will continue to monitor. Closed fracture of capitulum of humerus 07/09/20 13 Crohn's disease ([facility]) 06/12/2012 Assessment & Plan (10/15/2021 11:18 AM [...] 2 Urinary tract bacterial infections 12/17/2015 10/15/2021 Immunizations Name Administration Dates Next Due Flucelvax Influenza Quad 07/22/2021 Influenza, Quadrivalent, Mariah l Culture-based MDCK, Preservative Free, Antibiotic Free, Intramuscular 10/08/2019 Influenza, Quadrivalent, Split, Intramuscular Pfizer SARS-CoV-2 Monovalent Vaccination (12+ Yrs) PURPLE 10/23/2020,09/24/2020 Social History Tobacco Use Types Packs/Day Years [...] on file Legal Sex Female 1:58 AM SANDING MACHINE BUFFER Gender Identity Not on file Sexual Orientation Not on file Last Filed Vital Signs Vital Sign Reading Time Taken Comments Blood Pressure 118/62 08/30/2024 10:29 AM SANDING MACHINE BUFFER Pulse 94 08/30/2024 10:29 AM SANDING MACHINE BUFFER Temperature 35.8 C (96.4 F) 09/30/2020 1:23 PM SANDING MACHINE BUFFER Respiratory Rate 98 02/15/2023 9:32 AM CDT Oxygen Saturation 98% 08/30/2024 10:29 AM SANDING MACHINE BUFFER Inhaled Oxygen Concentration - - Weight 86.3 kg (190 lb 4.8 oz) 08/30/2024 10:29 AM SANDING MACHINE BUFFER Height 162.6 cm (5' 4 ) 08/30/2024 10:29 AM SANDING MACHINE BUFFER Body Mass Index 32.66 08/30/2024 10:29 AM SANDING MACHINE BUFFER Plan of Treatment Not on file Procedures Procedure Name Priority Date/Time Associated Diagnosis Comments DEXA SCAN Routine 12/06/2020 from Last 3 Months or Most Recently Relevant to Health Maintenance Results * (ABNORMAL) DEXA SCAN (12/06/2020) Scribed Deca Scan Abnormal 12/06/2020 Historical Provider MD HEALTH MAINTENANCE Final Result from Last 3 Months or Most Recently Relevant to Health Maintenance Insurance AET MEDICARE AETNA MEDICARE Care Teams Training Executive Relationship Specialty Start Date End Date Gerda Saenz MD PCP - General Family Medicine 02/15/23
--- OUTSIDE RECORDS SUMMARY | 2024-09-04 14:19 | XMS_ITS | Patient Health Summary ---
Author Organization [facility] Address [address] [place] [address] Care Team Providers Care Headrig Sawyer Name Role Phone Unavailable Primary Care Provider Unavailabl e Note from [facility],non-owned Affiliates and Associated Physician Practices is amultiple site organization consisting of ambulatory clinics and hospital sitesin [place], [place], [place] and [place]. This disclosure is being madepursuant to the Care Everywhere program and may not contain all information available regarding this patient. Last updated 18.[facility] Social History Tobacco Use Types Packs/Day Years Used Date Smoking Tobacco: Never Assessed Sex and Gender Information Value Date Recorded Sex Assigned at Not on file Gender Identity Not on file Sexual Orientation Not on file
--- OUTSIDE RECORDS SUMMARY | 2024-09-04 14:19 | XMS_ITS ---
Author Organization [facility] Address [address] [facility] [address] [place] [address] Care Team Providers Care Seed Trucker Name Role Phone Gerda Saenz MD Primary Care Provider Consuelo Jauregui Unavailable [phone] Social History Sex Assigned At : Social History Observation Description Sex Assigned At Female Vital Signs Blood pressure systolic 119 mm Hg 12/12/19 24 Blood pressure diastolic 73 mm Hg 024 Heart Rate 72 /min 12/12/2023 Height 64.00 in 12/12/2023 Weight 180.20 lbs 12/12/2023 BMI 30.9 kg/m2 12/12/2023 Height-cm 162.56 cm 12/12/2023 Weight-kg 81.74 kg 12/12/2023 Encounters Encounter [facility] [address] [facility] [address] [place] [address] 12/12/2023 Consuelo Caro Generalized anxiety disorder F41.1 and Major depressive disorder, recurrent, mild F33.0 Assessments Encounter Date Diagnosis (ICD Code) Assessment Notes Treatment Notes Treatment Clinical Notes Section Notes 12/12/2023 Generalized anxiety disorder (ICD-10 - F41.1) 12/12/2023 Major depressive disorder, recurrent, mild (ICD-10 - F33.0) Plan Of Treatment Next Appt Details Provider Name:Consuelo Caro , 11/26/2024 10:45:00 AM, [address], [facility] [address], [place], [address], Progress Notes * LESLIE GROSS RDOB:1950 (73 yo F)Acc No.[id number]:12/12/2023 Progress Notes Patient: LESLIE HIRSCH Provider: YULI KENNEDY :1950 A ge:73 Y S ex:Female Date:12/12/2023 Address:[address] [place], [place] [id number] Subjective: * Chief Complaints: * * Medical History: Objective: * Vitals: B P: 119/73 mm Hg, HR: 72 /min, Wt: 180.20 lbs, Wt-k.74 kg, Ht: 64.00 in, Ht- cm: 162.56 cm, BMI: 30.9 Index. Assessment: * Assessment: 1. M ajor depressive disorder, recurrent, mild - F33.0 2 . G eneralized anxiety disorder - F41.1 Plan: * Treatment: * Billing Information: * Visit Code: * Procedure Codes: * Sign off status: Completed true * Provider: YULI KENNEDY Date: 0 12/12/2023 Generated for Mukesh joseph/Kayli/Taylor on: 0 09/04/2024 02:19 PM COIL WINDER
--- OUTSIDE RECORDS SUMMARY | 2024-09-04 14:19 | XMS_ITS | Encounter Summary ---
Author Organization [facility] Address [address] [place] [address] Care Team Providers Care Retail Loan Originator Assistant Name Role Phone Robert Kang MD Primary Care Provider [phone] Mateo Chavez MD Primary Care Provider + Mateo Chavez MD Primary Care Provider + Gerda Saenz MD Primary Care Provider [phone] Encounter Details Date Type Department Care Team (Late st Contact Info) Description 03/29/2018 Orders Only [facility] Information Release Services [address] [place] [address] [address] [place] [address] Robert Kang MD [address] [place] [phone] Social History Tobacco Use Types Packs/Day Years Used Date Smoking Tobacco: Never Comments:Smoking History Pac ks/day: 0 Packs Alcohol Use Standard Drinks/Week Comments No 0 (1 standard drink = 0.6 oz pur e alcohol) Comments Unknown Sex and Gender Information Value Date Recorded Sex Assigned at Not on file Legal Sex Female 1:58 AM STRETCHING MACHINE TENDER FRAME Gender Identity Not on file Sexual Orientation Not on file documented as of this encounter Plan of Treatment Not on file documented as of this encounter Visit Diagnoses Not on filedocumented in this encounter Care Teams Retail Loan Originator Assistant Relationship Specialty Start Date End Date Robert Kang MD PCP - General 05/11/12 09/21/20 Mateo Chavez MD PCP - General Internal Medicine 09/22/20 10/14/22 Mateo Chavez MD [address] [place], [place] [address]LOLI GLEASON [address] [place] [id number] PCP - General Internal Medicine 12/24/22 02/14/23 Gerda Saenz MD [address] [place], [place] [address]LOLI GLEASON [address] [place] [id number] PCP - General Family Medicine 02/15/23 documented as of this encounter
--- OUTSIDE RECORDS SUMMARY | 2024-09-04 14:20 | XMS_ITS ---
Author Organization [facility] Address [address] [place] [address] Care Team Providers Care Field Services Director Name Role Phone Gerda Saenz MD Primary Care Provider Consuelo Jauregui Unavailable [phone] Allergies Allergen (clinical drug ingredient) Drug/Non Drug Allergy documented on EMR Reaction Allergy Type Onset Date Status Substance with sulfonamide structure and antibacterial mechanism of action (substance) SULFA (SULFONAMIDE ANTIBIOTICS) (uncoded) Unknown Allergy 12/12/2023 Active REASON FOR VISIT f/u rx Medications Medication SIG (Take, Route, Frequency, Duration) Notes Start Date End Date Status busPIRone HCl 15 MG 1 tablet Oral Twice a day for 90 days Active DULoxetine HCl 60 MG 1 capsule Oral twice a day for 90 days Active Risedronate Sodium 150 MG Oral 12/12/2023 Active Folic Acid 1 MG Oral 12/12/2023 Act carmelina Aspirin 81 MG Oral 12/12/2023 Activ e methylPREDNISolone 4 MG Oral 12/12/2023 Active MESALAMINE ER 500 MG CAPSULE,EXTENDED RELEASE *Reorder from OrderDynamics for eRx and Interaction Alerts* 12/12/2023 Active Atorvastatin Calcium 40 MG Oral 12/12/2023 Active Vitamin C *Pick strength-form from OrderDynamics for eRX* 12/12/2023 Active Omeprazole 20 MG Oral 12/12/2023 Ac tive AFLURIA QUAD 0952-2276 60 MCG (15 MCG X 4)/0.5 ML INTRAMUSCULAR SUSP. *Reorder from OrderDynamics for eRx and Interaction Alerts* 12/12/2023 Active Pentasa 500 MG Oral 12/12/2023 Acti ve Fluticasone Propionate Diskus 50 MCG/ACT Inhalation *Reorder from OrderDynamics for eRx and Interaction Alerts* 12/12/2023 Active Social History Tobacco Use: Social History Observation Description Date Details (start date - stop date) Never Smoker NA - NA Sex Assigned At : Social History Observation Description Sex Assigned At Female Tobacco Control (Standard) Question Answer Notes Tobacco use: Nonsmoker Vital Signs Blood pressure systolic 124 mm Hg 06/18/20 24 Blood pressure diastolic 95 mm Hg 024 Heart Rate 90 /min 06/18/2024 Height 64.00 in 06/18/2024 Weight 187.0 lbs 06/18/2024 BMI 32.09 kg/m2 06/18/2024 Height-cm 162.56 cm 06/18/2024 Weight-kg 84.82 kg 06/18/2024 Encounters Encounter Location Date Provider Diagnosis [facility] [address] [address] 06/18/2024 Consuelo Caro Major depressive disorder, recurrent, mild F33.0 and Generalized anxiety disorder F41.1 Assessments Encounter Date Diagnosis (ICD Code) Assessment Notes Treatment Notes Treatment Clinical Notes Section Notes 06/18/2024 Major depressive disorder, recurrent, mild (ICD-10 - F33.0) Major depression- Cymbalta 60 mg twice a day patient reported nerve pain and in pain management also for back and leg pain hx anxiety and nerve pain- flare ups disucss and educated on Cymbalta 60 mg twice a day pain management Anxiety- Buspar 15 mg twice a day SLUMS= 28 05/03/24 http_s://www.mario. org/Ponyy-Mrvazc-J llness/Mental-Heal th-Conditions http_s://psychcent SwipeClock.com/depression /fdc-xvxgtjlkh-zth lvgfa-vh-zjgpqvwyh n#treatments http__s://www.nimh .nih.gov/health/to pics/mental-health -medications http__s://www.mario .org/About-Mental- Illness/Treatments /Qbszug-Hwvukm-Mje ications educated on all medications, benefits, side effects and risk, and educated on depression, anxiety, and ADHD, mood d/o and educated on compliance of medications, metabolic and movement d/o education appointment's, continue therapy discussion with patient about course of treatment and patient instructions. education on serotonin syndrome Discussed and educated pt regarding benzodiazepines are generally not intended for prolonged use and that use can cause tolerance, dependence, depression, and associated memory issues including dementias (this list is not exhaustive). Benzodiazepine use is generally not recommended concurrently with pain medications and/or other controlled substances educated on all medications, benefits, side effects and risk, and educated on depression, anxiety, and ADHD, mood d/o and educated on compliance of medications, metabolic and movement d/o education appointment is, continue therapy discussion with patient about course of treatment and patient instructions. education on serotonin syndrome SSRI/SNRI side effects discussed including but not limited to, gastric upset, nausea, vomiting, diarrhea and/or constipation, weight changes, sexual side effects including loss of libido, increased suicidal thoughts/behaviors in children and young adults, and serotonin syndrome. Patient educated on all medications including potential benefits, side effects, risks. Educated on proper dosing schedule and importance of compliance Medication Management and Follow-Up - Plan: - Schedule follow-up appointments every 1-3 months to monitor the patient's response to the medication regimen. - Reinforce the importance of avoiding recreational drug use due to potential neurotoxicity and interactions with prescribed medications. 06/18/2024 Generalized anxiety disorder (ICD-10 - F41.1) Major depression- Cymbalta 60 mg twice a day patient reported nerve pain and in pain management also for back and leg pain hx anxiety and nerve pain- flare ups disucss and educated on Cymbalta 60 mg twice a day pain management Anxiety- Buspar 15 mg twice a day SLUMS= 28 05/03/24 http_s://www.mario. org/Iazim-Pobkqq-C llness/Mental-Heal th-Conditions http_s://psychcent SwipeClock.com/depression /cxb-cqhbasaxg-vtd gednm-km-okqzfssma n#treatments http__s://www.nimh .nih.gov/health/to pics/mental-health -medications http__s://www.mario .org/About-Mental- Illness/Treatments /Mnuumt-Noviwp-Zcj ications educated on all medications, benefits, side effects and risk, and educated on depression, anxiety, and ADHD, mood d/o and educated on compliance of medications, metabolic and movement d/o education appointment's, continue therapy discussion with patient about course of treatment and patient instructions. education on serotonin syndrome Discussed and educated pt regarding benzodiazepines are generally not intended for prolonged use and that use can cause tolerance, dependence, depression, and associated memory issues including dementias (this list is not exhaustive). Benzodiazepine use is generally not recommended concurrently with pain medications and/or other controlled substances educated on all medications, benefits, side effects and risk, and educated on depression, anxiety, and ADHD, mood d/o and educated on compliance of medications, metabolic and movement d/o education appointment is, continue therapy discussion with patient about course of treatment and patient instructions. education on serotonin syndrome SSRI/SNRI side effects discussed including but not limited to, gastric upset, nausea, vomiting, diarrhea and/or constipation, weight changes, sexual side effects including loss of libido, increased suicidal thoughts/behaviors in children and young adults, and serotonin syndrome. Patient educated on all medications including potential benefits, side effects, risks. Educated on proper dosing schedule and importance of compliance Medication Management and Follow-Up - Plan: - Schedule follow-up appointments every 1-3 months to monitor the patient's response to the medication regimen. - Reinforce the importance of avoiding recreational drug use due to potential neurotoxicity and interactions with prescribed medications. Plan Of Treatment Medication Medication Name Sig Start Date Stop Date Notes busPIRone HCl 15 MG 1 tablet Oral Twice a day for 90 days DULoxetine HCl 60 MG 1 capsule Oral twic e a day for 90 days Next Appt Details Follow Up: 6 Months, Reason: f/u rx Provider Name:Consuelo Caro , 11/26/2024 10:45:00 AM, [facility] [facility] [address] [facility], [facility] [address], [address], Progress Notes * LESLIE GROSS RDOB:1950 (73 yo F)Acc No.[id number]:06/18/2024 Patient: [place] JESUSITAGLYNNTELMA Erickson Provider: YULI KENNEDY :1950 A ge:73 Y S ex:Female Date:06/18/2024 Address:[address] [place], [place] [id number] Pcp:Gerda Saenz MD Subjective: * Chief Complaints: * 1 . F/u rx. * HPI: D epression Screening: MAYELIN-7 (2018 Edition) F eeling nervous, anxious, or on edge?Several days, N ot being able to stop or control worrying N ot at all, W orrying too much about different things N ot at all, T rouble relaxing N ot at all, B eing so restless that it is hard to sit still N ot at all, B ecoming easily annoyed or irritable?Several days, F eeling afraid as if something awful might happen N ot at all, T otal MAYELIN-7 Score 2 , I nterpretation of Total ( 0 to 4) No Anxiety. Follow up anxiety nad depression chronic since last visit reported I been doing good I had a flare up lasted 2 weeks and went away and I feel great now I may go see neurologist or RA provider to see cause I will ask PCP for referral I have had cold sores before and I had MRI back and and feel like a nerve pain and I can feel great and then have flare up and physical s/s, and I function, the burning and irritation from flare up, I dxn Chrons age 41 and colonoscopy 07/16 and intestine clear, depression and anxiety always been there and sometimes worst than others, I feel now nothing bothers me and good life, no sad or no hopeless or helpless I read a lot and spend time computer, and I am going to learn to make arrow heads for a hobby, feel anxiety better and restelss and fidgety also improved, I feel fine now, good sleep average 7 hours, appetite good, motivation and interest good, concentration and focus good, energy good, no mood swings, rx helps me stable and when have flare up triggers depression and anxiety no psychosis no blanca, no SI/HI, I am taking Cymbalta 60 mg BID tolerating no s/e. [place] 09/18 [place] - see sister ETOH denies smoking denies drugs denies labs- PCP - monitor cholestrol HX Cymbalta and Buspar SLUMS= 28 05/03/24 h x cold sore hx Chrons- improved colonoscopy 07/16. [place]-Suicide Severity Rating Scale: Suicide Risk (CSRS-screener) i n the past one month Have you wished you were or wished you could go to sleep and not wake up? N o. D epression screening: PHQ-9 L ittle interest or pleasure in doing things N ot at all, F eeling down, depressed, or hopeless N ot at all, T rouble falling or staying asleep, or sleeping too much N ot at all, F eeling tired or having little energy N ot at all, P oor appetite or overeating N ot at all, F eeling bad about yourself or that you are a failure, or have let yourself or your family down N ot at all, T rouble concentrating on things, such as reading the newspaper or watching television N ot at all, M oving or speaking so slowly that other people could have noticed; or the opposite, being so fidgety or restless that you have been moving around a lot more than usual N ot at all, T houghts that you would be better off or of hurting yourself in some way N ot at all, T otal Score 0 . I ntervention D epression Screening Findings N egative, S uicide Risk Assessment Performed 1 08/18/2023 . * ROS: r eports n o shortness of breath when walking but reports no chest pain, no arm pain on exertion, no shortness of breath when lying down, no palpitations, no known heart murmur, and no ankle swelling; no cough. r eports no abdominal pain, no nausea, no vomiting, no constipation, normal appetite, no diarrhea, and no GERD; . r eports no headaches and no migraines but reports no loss of consciousness, no weakness, no numbness, no seizures, no dizziness, no tremor, no gait dysfunction, and no paralysis. r eports no sleep disturbances, no restless sleep, and no memory loss b ut reports mild depression, feeling safe in a relationship, no alcohol abuse, mild anxiety, no hallucinations, no suicidal thoughts, no mood swings, no agitation, r eports f atigue. reports no fever, no significant weight gain, and no significant weight loss. r eports wears glasses/contact lenses. reports no incontinence, no difficulty urinating, and no increased frequency. r eports no muscle aches, no muscle weakness, arthralgias/joint pain, back pain, leg pain, no swelling in the extremities, no neck pain, and no difficulty walking hx reported nerve pain and has it in vaginal area when have increase with anxiety and burning and irritation - Alexaalta has helped- plan to see RA or Neurologist about nerve pain in pain management - leg, back pain. * Medical History: P roblems: Generalized anxiety disorder, Recurrent major depressive episodes, mild, ,. * Social History: T obacco Use: T obacco Control (Standard) T obacco use: N onsmoker. M igrated Social History: M igrated Social History: Alcohol Intake: None 06/29/2018,Tobacco Years: Current some days smoker 01/27/2023,Smoking Status: 0 07/29/2023. M iscellaneous: A dvance Care Planning A re you your own decision-maker Y es, D o you have Power of Truss Builder for Health or Medical? Y es. * Medications: T aking Folic Acid 1 MG Tablet Oral , Taking Fluticasone Propionate Diskus 50 MCG/ACT Aerosol Powder Breath Activated Inhalation , Notes to Pharmacist: *Reorder from OrderDynamics for eRx and Interaction Alerts*, Taking Omeprazole 20 MG Capsule Delayed Release Oral , Taking Pentasa 500 MG Capsule Extended Release Oral , Taking AFLURIA QUAD 6641-4413 60 MCG (15 MCG X 4)/0.5 ML INTRAMUSCULAR SUSP. , Notes to Pharmacist: *Reorder from OrderDynamics for eRx and Interaction Alerts*, Taking methylPREDNISolone 4 MG Tablet Therapy Pack Oral , Taking Aspirin 81 MG Tablet Chewable Oral , Taking Atorvastatin Calcium 40 MG Tablet Oral , Taking MESALAMINE ER 500 MG CAPSULE,EXTENDED RELEASE , Notes to Pharmacist: *Reorder from OrderDynamics for eRx and Interaction Alerts*, Taking Vitamin C , Notes to Pharmacist: *Pick strength-form from OrderDynamics for eRX*, Taking Risedronate Sodium 150 MG Tablet Oral , Taking DULoxetine HCl 60 MG Capsule Delayed Release Particles 1 capsule Oral twice a day , Taking busPIRone HCl 15 MG Tablet 1 tablet Oral Twice a day , Discontinued DULoxetine HCl 60 MG Capsule Delayed Release Particles 1 capsule Oral evening , Medication List reviewed and reconciled with the patient * Allergies: S ULFA (SULFONAMIDE ANTIBIOTICS): Allergy - Onset Date 12/12/2023. Objective: * Vitals: B P:124/95mm Hg, HR:90/min, Wt:187.0lbs, Wt-k.82 kg, Ht: 64.00 in, Ht-cm: 162.56 cm, BMI:32.09Index, Body Surface Area: 1.96. * Examination: P sychiatry: Appearance: w ell-groomed, well-nourished, appears stated age. Abnormal body movements: n one. Affect / mood: a ppropriate, full range. Aggression: l ow. Anger control: g ood. Attention: g ood. Attitude: c ooperative. Homicidal ideation: n one. Suicidal ideation: n one. Memory status: n o impairment noted S LUMS - 28 05/03/24. Degree of awareness of surroundings: w ithin normal limits.? Delusions: n o. Hallucinations: n o. Impulse control: g ood. Insight: g ood. Intellectual functioning: n o impairment noted. Comprehension - Intellectual function: a verage. Judgement: g ood. Orientation: a wake, alert and oriented x 3. Perceptual disorders: n o perceptual disorder noted. Psychomotor activity: w ithin normal range. Sexual impulse control: g ood. Speech / language: a ppropriate pitch/modulation, clear and coherent, normal rate, volume, and articulation (RVR), proper grammar used. Thought content: a ppropriate. Thought process: i ntact. Assessment: * Assessment: 1. M ajor depressive disorder, recurrent, mild - F33.0 (Primary) 2 . G eneralized anxiety disorder - F41.1 Major depression- Cymbalta 6 0 mg twice a day patient reported nerve pain and in pain management also for back and leg pain hx anxiety and nerve pain- flare ups disucss and educated on Cymbalta 60 mg twice a day p ain management Anxiety- Buspar 15 mg twice a day SLUMS= 28 05/03/24 http_s://www.mario.org/Rbeqh-Wukpyn-Zppigcr/Opvadi-Qksmcd-Fwzntecmch http_s://psychcentral.com/depression/vac-rxakiuxqu-pyrmgsxt-of-depression#treatm ents http__s://www.nimh.nih.gov/health/topics/jguqdf-xzsano-ytvikvmvtgp http__s://www.mario.org/Ehtol-Wyyvji-Nhtvcyx/Treatments/Bzpvec-Upkflf-Dxhwderesya educated on all medications, benefits, side effects and risk, and educated on depression, anxiety, and ADHD, mood d/o and educated on compliance of medications, metabolic and movement d/o education appointment's, continue therapy discussion with patient about course of treatment and patient instructions. education on serotonin syndrome Discussed and educated pt regarding benzodiazepines are generally not intended for prolonged use and that use can cause tolerance, dependence, depression, and associated memory issues including dementias (this list is not exhaustive). Benzodiazepine use is generally not recommended concurrently with pain medications and/or other controlled substances educated on all medications, benefits, side effects and risk, and educated on depression, anxiety, and ADHD, mood d/o and educated on compliance of medications, metabolic and movement d/o education appointment is, continue therapy discussion with patient about course of treatment and patient instructions. education on serotonin syndrome SSRI/SNRI side effects discussed including but not limited to, gastric upset, nausea, vomiting, diarrhea and/or constipation, weight changes, sexual side effects including loss of libido, increased suicidal thoughts/behaviors in children and young adults, and serotonin syndrome. Patient educated on all medications including potential benefits, side effects, risks. Educated on proper dosing schedule and importance of compliance Medication Management and Follow-Up - Plan: - Schedule follow-up appointments every 1-3 months to monitor the patient's response to the medication regimen. - Reinforce the importance of avoiding recreational drug use due to potential neurotoxicity and interactions with prescribed medications. Plan: * Treatment: 2. G eneralized anxiety disorder Refill busPIRone HCl Tablet, 15 MG, 1 tablet, Oral, Twice a day, 90 days, 180, Refills 1. ? * Procedure Codes: 9 6127 BEHAV ASSMT W/SCORE & DOCD/STAND INSTRUMENT, G2211 VISIT COMPLEXITY INHERENT TO ONGOING CARE RELATED TO A PATIENT'S SINGLE, SERIOUS CONDITION OR A COMPLEX CONDITION * Preventive Medicine: Screenings: F all risk screening F all Risk Assessment: N o falls in the past year. B reast cancer screening (mammogram) H ave you had a recent mammogram? Y es,?Date of mammogram: . C ervical cancer screening (Pap smear) H ave you had a recent Pap smear? n ot needed age. D epression screening H ave you had a recent depression screening? Y es, D ate of depression screenin 08/18/2023. A lcohol misuse screening H ave you had a recent alcohol misuse screening? Y es no ETOH USE, D ate of alcohol misuse screenin 08/18/2023. C olorectal cancer screening T en year follow-up for colonoscopy recommended? Y es, H ave you had a recent colorectal cancer screening? Y es,?Type of screening: C olonoscopy, D ate of Colonoscopy: 1 08/25/2022. * Follow Up: 6 Months (Reason: f/u rx) * Billing Information: * Visit Code: 84661 OFFICE OUTPATIENT VISIT 25 MINUTES DETAILED HISTORY AND EXAM/MODERATE MEDICAL DECISION MAKING. * Procedure Codes: 43317 BEHAV ASSMT W/SCORE & DOCD/STAND INSTRUMENT. G2211 VISIT COMPLEXITY INHERENT TO ONGOING CARE RELATED TO A PATIENT'S SINGLE, SERIOUS CONDITION OR A COMPLEX CONDITION. * WHAT BLOCKING OPERATOR Sign off status: Completed true * Provider: YULI KENNEDY Date: 08/18/2023 Generated for Mukesh joseph/Kayli/Destinysmitting on: 0 09/04/2024 02:19 PM STRAWHAT BLOCKING OPERATOR History and Physical Notes * HPI (History of Present Illness) Category Sub-Category Detail Notes Category Not es Depression screening PHQ-9 Little inte rest or pleasure in doing things: Not at all Feeling down, depressed, or hopeless: No t at all Trouble falling or staying asleep, or sl eeping too much: Not at all Feeling tired or having little energy: N ot at all Poor appetite or overeating: Not at all Feeling bad about yourself o r that you are a failure, or have let yourself or your family down: Not at all Trouble concentrating on thi ngs, such as reading the newspaper or watching television: Not at all Moving or speaking so slowly that other people could have noticed; or the opposite, being so fidgety or restless that you have been moving around a lot more than usual: Not at all Thoughts that you would be b ricardo off or of hurting yourself in some way: Not at all Total Score: 0 Intervention Depression Screening Findings: N egative Suicide Risk Assessment Performed: 06/18 Depression Screening MAYELIN-7 (2018 Edition) Feeling nervous, anxious, or on edge: Several days Follow up anxiety nad depression chronic since last visit reported I been doing good I had a flare up lasted 2 weeks and went away and I feel great now I may go see neurologist or RA provider to see cause I will ask PCP for referral I have had cold sores before and I had MRI back and and feel like a nerve pain and I can feel great and then have flare up and physical s/s, and I function, the burning and irritation from flare up, I dxn Chrons age 41 and colonoscopy 07/16 and intestine clear, depression and anxiety always been there and sometimes worst than others, I feel now nothing bothers me and good life, no sad or no hopeless or helpless I read a lot and spend time computer, and I am going to learn to make arrow heads for a hobby, feel anxiety better and restelss and fidgety also improved, I feel fine now, good sleep average 7 hours, appetite good, motivation and interest good, concentration and focus good, energy good, no mood swings, rx helps me stable and when have flare up triggers depression and anxiety no psychosis no blanca, no SI/HI, I am taking Cymbalta 60 mg BID tolerating no s/e. [place] 09/18 [place] - see sister ETOH denies smoking denies drugs denies labs- PCP - monitor cholestrol HX Cymbalta and Buspar SLUMS= 28 05/03/24 hx cold sore hx Chrons- improved colonoscopy 07/16 Not being able to stop or control worryi ng: Not at all Worrying too much about different things : Not at all Trouble relaxing: Not at all Being so restless that it is hard to sit still: Not at all Becoming easily annoyed or irritable: Se days Feeling afraid as if something awful yolanda ht happen: Not at all Total MAYELIN-7 Score: 2 Interpretation of Total: (0 to 4) No Anx iety [place]-Suicide Severity Rating Scale Suicide Risk (CSRS-screener) in the past one month Have you wished you were or wished you could go to sleep and not wake up?: No Examination Category Sub-Category Detail Notes Category Not es Psychiatry Appearance: well-groomed, we ll-nourished, appears stated age Attitude: cooperative Psychomotor activity: within normal rang e Abnormal body movements: none Attention: good Degree of awareness of surroundings: wit hin normal limits Orientation: awake, alert and lino ented x 3 Affect / mood: appropriate, full ra nge Speech / language: appropriate pitch/mo dulation, clear and coherent, normal rate, volume, and articulation (RVR), proper grammar used Insight: good Judgement: good Thought process: intact Thought content: appropriate Perceptual disorders: no perceptual diso rder noted Aggression: low Anger control: good Suicidal ideation: none Homicidal ideation: none Intellectual functioning: no impairment noted Impulse control: good Sexual impulse control: good Memory status: no impairment noted SLUMS - 28 05/03/24 Delusions: no Hallucinations: no Comprehension - Intellectual function: a verage
--- OUTSIDE RECORDS SUMMARY | 2024-09-04 14:20 | XMS_ITS | Patient Health Record ---
Author Organization [facility] As [facility] Address [address] [place] [address] Care Team Providers Care Cat Breeder Name Role Phone Gerda Saenz MD Primary Care Provider Consuelo Jauregui Unavailable [phone] Migration, Provider Unavailable Unavailable Allergies Allergen (clinical drug ingredient) Drug/Non Drug Allergy documented on EMR Reaction Allergy Type Onset Date Status Substance with sulfonamide structure and antibacterial mechanism of action (substance) SULFA (SULFONAMIDE ANTIBIOTICS) (uncoded) Unknown Allergy 12/12/2023 Active Reason For Referral No Information Medications Medication SIG (Take, Route, Frequency, Duration) Notes Start Date End Date Status Omeprazole 20 MG Oral 12/12/2023 Ac tive AFLURIA QUAD 5694-6863 60 MCG (15 MCG X 4)/0.5 ML INTRAMUSCULAR SUSP. *Reorder from [facility] for eRx and Interaction Alerts* 12/12/2023 Active Pentasa 500 MG Oral 12/12/2023 Acti ve busPIRone HCl 15 MG 1 tablet Oral Twice a day for 90 days Active Aspirin 81 MG Oral 12/12/2023 Activ e methylPREDNISolone 4 MG Oral 12/12/2023 Active MESALAMINE ER 500 MG CAPSULE,EXTENDED RELEASE *Reorder from [facility] for eRx and Interaction Alerts* 12/12/2023 Active DULoxetine HCl 60 MG 1 capsule Oral twice a day for 90 days Active Atorvastatin Calcium 40 MG Oral 12/12/2023 Active Risedronate Sodium 150 MG Oral 12/12/2023 Active Vitamin C *Pick strength-form from [facility] for eRX* 12/12/2023 Active Fluticasone Propionate Diskus 50 MCG/ACT Inhalation *Reorder from [facility] for eRx and Interaction Alerts* 12/12/2023 Active Folic Acid 1 MG Oral 12/12/2023 Act carmelina Immunizations Vaccine Route Administration Date Status Comme nts Pfizer Biontech Covid-19 Vac cine 2nd dose Unknown 09/24/2020 Administered Pfizer Biontech Covid-19 Vac cine 2nd dose Unknown 10/23/2020 Administered Tdap Unknown 07/25/2007 Administered Social History Tobacco Use: Social History Observation Description Date Details (start date - stop date) Never Smoker NA - NA Sex Assigned At : Social History Observation Description Sex Assigned At Female Tobacco Control (Standard) Question Answer Notes Tobacco use: Nonsmoker Problems Problem Type SNOMED Code ICD Code Onset Dates Problem Status W/U Status Risk Notes Problem Mild recurrent major depression (01043507) Major depressive disorder, recurrent, mild (F33.0) Active confirmed Problem Generalized anxiety disorder (82220470) Generalized anxiety disorder (F41.1) 4 Active confirmed Vital Signs Heart Rate 90 /min 06/18/2024 Height-cm 162.56 cm 06/18/2024 Blood pressure diastolic 95 mm Hg 06/18/2024 Weight-kg 84.82 kg 06/18/2024 Height 64.00 in 06/18/2024 Blood pressure systolic 124 mm Hg 06/18/2024 Weight 187.0 lbs 06/18/2024 BMI 32.09 kg/m2 06/18/2024 Encounters Encounter Location Date Provider Diagnosis [place] [address] [address] 12/02/2023 Provider Migration Generalized anxiety disorder F41.1 and Major depressive disorder, recurrent, mild F33.0 [place] [id number] [address] 12/12/2023 Consuelo Caro Generalized anxiety disorder F41.1 and Major depressive disorder, recurrent, mild F33.0 [place] [id number] [address] 05/03/2024 Consuelo Caro Major depressive disorder, recurrent, mild F33.0 and Generalized anxiety disorder F41.1 [facility] [place] [address] [address] 06/18/2024 Consuelo Caro Major depressive disorder, recurrent, mild F33.0 and Generalized anxiety disorder F41.1 [facility] [address] [place] [address] 12/10/2023 [place] [facility] [place] [address] [place] [address] 12/11/2023 Provider Migration Assessments Encounter Date Diagnosis (ICD Code) Assessment Notes Treatment Notes Treatment Clinical Notes Section Notes 12/02/2023 Major depressive disorder, recurrent, mild (ICD-10 - F33.0) 12/02/2023 Generalized anxiety disorder (ICD-10 - F41.1) 12/12/2023 Major depressive disorder, recurrent, mild (ICD-10 - F33.0) 12/12/2023 Generalized anxiety disorder (ICD-10 - F41.1) 05/03/2024 Major depressive disorder, recurrent, mild (ICD-10 - F33.0) Major depression- Cymbalta 90 mg daily patient reported nerve pain and in pain management also for back and leg pain will try to take Cymabalta 60 mg in amd Cymbalta 30 mg evening to help anxiety and nerve pain disucss Cymbalta 60 mg twice a day and patient want to wait until see pain management Anxiety- Buspar 15 mg twice a day SLUMS= 28 05/03/24 http_s://www.mario. org/Yfgig-Iqqoxw-T llness/Mental-Heal th-Conditions http_s://psychAffinaquest.com/depression /gde-hvkahafrr-zyt qrome-pq-umtpvgzvn n#treatments http__s://www.nimh .nih.gov/health/to pics/mental-health -medications http__s://www.mario .org/About-Mental- Illness/Treatments /Fsjhob-Raeesi-Jum ications educated on all medications, benefits, side [...] potential neurotoxicity and interactions with prescribed medications. 05/03/2024 Generalized anxiety disorder (ICD-10 - F41.1) Major depression- Cymbalta 90 mg daily patient reported nerve pain and in pain management also for back and leg pain will try to take Cymabalta 60 mg in amd Cymbalta 30 mg evening to help anxiety and nerve pain disucss Cymbalta 60 mg twice a day and patient want to wait until see pain management Anxiety- Buspar 15 mg twice a day SLUMS= 28 05/03/24 http_s://www.mario. org/Ssgiv-Topren-K llness/Mental-Heal th-Conditions http_s://psychcent Beyond Verbal.com/depression /dps-bkshaifiw-vzu ruqpa-sk-tvwhishqq n#treatments http__s://www.nimh .nih.gov/health/to pics/mental-health -medications http__s://www.mario .org/About-Mental- Illness/Treatments /Fnasoq-Iqvfir-Jhq ications educated on all medications, benefits, side [...] neurotoxicity and interactions with prescribed medications. 06/18/2024 Major depressive disorder, recurrent, mild (ICD-10 - F33.0) Major depression- Cymbalta 60 mg twice a day patient reported nerve pain and in pain management also for back and leg pain hx anxiety and nerve pain- flare ups disucss and educated on Cymbalta 60 mg twice a day pain management Anxiety- Buspar 15 mg twice a day SLUMS= 28 05/03/24 http_s://www.mario. org/Cskcj-Jinmfg-R llness/Mental-Heal th-Conditions http_s://psychcent Beyond Verbal.com/depression /hiz-uafbfvfjf-vvt idpdv-no-jttrlriyq n#treatments http__s://www.nimh .nih.gov/health/to pics/mental-health -medications http__s://www.mario .org/About-Mental- Illness/Treatments /Lgbvml-Vxubaa-Fph ications educated on all medications, benefits, side [...] twice a day SLUMS= 28 05/03/24 http_s://www.mario. org/Uxubb-Gdpkrz-S llness/Mental-Heal th-Conditions http_s://psychcent Beyond Verbal.com/depression /gsn-wwbqgijun-gjf wpnky-sf-mzufnlrxb n#treatments http__s://www.nimh .nih.gov/health/to pics/mental-health -medications http__s://www.mario .org/About-Mental- Illness/Treatments /Rakdyf-Wxuydi-Ltk ications educated on all medications, benefits, side [...] interactions with prescribed medications. Plan Of Treatment Next Appt Details Provider Name:Consuelo Caro , 11/26/2024 10:45:00 AM, [address], [address], [place], [address], Insurance Providers Payer Name Payer Address Payer Phone Subscriber Number Group Number Insured Name Patient Relationship to Insured Coverage Start Date Coverage End Date [employer] Medicare Replacemen t/Advantag e - Ppo [address] [place] [address] [id number] LESLIE GROSS Self - patient is the insured Medicare-I l Medicare [address] [place] [address] [id number] LESLIE GROSS Self - patient is the insured Medical (General) History Medical History History ICD Code Problems: Generalized anxiety disorder Recurrent major depressive episodes, mil d , Surgical History Surgery Date(Month/Year) Removal of gallbladder (25525) Heart surgery 12/23/2010
--- OUTSIDE RECORDS SUMMARY | 2024-09-04 14:20 | XMS_ITS ---
Author Organization [facility] As [facility] Address [address] [place] [address] Care Team Providers Care Ward Supervisor Name Role Phone Gerda Saenz MD Primary Care Provider Consuelo Jauregui Unavailable [phone] Allergies Allergen (clinical drug ingredient) Drug/Non Drug [...] Twice a day for 90 days Active MESALAMINE ER 500 MG CAPSULE,EXTENDED RELEASE *Reorder from [facility] for eRx and Interaction Alerts* 12/12/2023 Active DULoxetine HCl 60 MG 1 capsule Oral in am for 90 days 12/12/2023 Active Risedronate Sodium 150 MG Oral 12/12/2023 Active Vitamin C *Pick strength-form from [facility] for eRX* 12/12/2023 Active methylPREDNISolone 4 MG Oral 12/12/2023 Active AFLURIA QUAD 60 MCG (15 MCG X 4)/0.5 ML INTRAMUSCULAR SUSP. *Reorder from [facility] for eRx and Interaction Alerts* 12/12/2023 Active Atorvastatin Calcium 40 MG Oral 12/12/2023 Active Aspirin 81 MG Oral 12/12/2023 Activ e DULoxetine HCl 30 MG 1 capsule Oral evening for 90 days 12/12/2023 Active Pentasa 500 MG Oral 12/12/2023 Acti ve Omeprazole 20 MG Oral 12/12/2023 Ac tive Fluticasone Propionate Diskus 50 MCG/ACT Inhalation *Reorder from [facility] for eRx and Interaction Alerts* 12/12/2023 Active Folic Acid 1 MG Oral 12/12/2023 Act carmelina Social History Tobacco Use: Social History Observation Description Date Details (start date - stop date) Never Smoker NA - NA Sex Assigned At : Social History Observation Description Sex Assigned At Female Tobacco Control (Standard) Question Answer Notes Tobacco use: Nonsmoker Problems Problem Type SNOMED Code ICD Code Onset Dates Problem Status W/U Status Risk Notes Problem Mild recurrent major depression (92046443) Major depressive disorder, recurrent, mild (F33.0) 4 Active confirmed Problem Generalized anxiety disorder (88558279) Generalized anxiety disorder (F41.1) 4 Active confirmed Vital Signs Blood pressure systolic 152 mm Hg 05/03/20 24 Blood pressure diastolic 81 mm Hg 024 Heart Rate 82 /min 05/03/2024 Height 64.00 in 05/03/2024 Weight 182.2 lbs 05/03/2024 BMI 31.27 kg/m2 05/03/2024 Height-cm 162.56 cm 05/03/2024 Weight-kg 82.64 kg 05/03/2024 Encounters Encounter Location Date Provider Diagnosis [facility] [address] [address] 05/03/2024 Consuelo Caro Major depressive disorder, recurrent, mild F33.0 and Generalized anxiety disorder F41.1 Assessments Encounter Date Diagnosis (ICD Code) Assessment Notes Treatment Notes Treatment Clinical Notes Section Notes 05/03/2024 Major depressive disorder, recurrent, mild (ICD-10 [...] twice a day SLUMS= 28 05/03/24 http_s://www.mario. org/Rfcjj-Irlosn-Q llness/Mental-Heal th-Conditions http_s://psychcent MobileAware.com/depression /imr-lnyaduvmt-qmq gqpzy-ia-weofuujtw n#treatments http__s://www.[facility] .nih.gov/health/to pics/mental-health -medications http__s://www.mario .org/About-Mental- Illness/Treatments /Sjhddl-Vwmeuw-Mmu ications educated on all medications, benefits, side [...] twice a day SLUMS= 28 05/03/24 http_s://www.mario. org/Awbrz-Meecbp-U llness/Mental-Heal th-Conditions http_s://psychcent MobileAware.com/depression /ouz-znbejoygp-jim ztjlm-bl-lsirwyaht n#treatments http__s://www.nimh .nih.gov/health/to pics/mental-health -medications http__s://www.mario .org/About-Mental- Illness/Treatments /Tppwac-Ebfdgf-Fyj ications educated on all medications, benefits, side [...] DULoxetine HCl 60 MG 1 capsule Oral in am for 90 days 11/23 DULoxetine HCl 30 MG 1 capsule Oral evening for 90 days Next Appt Details Follow Up: 6 Weeks, Reason: f/u rx Provider Name:Consuelo Caro , 11/26/2024 10:45:00 AM, [address], [address], [place], [address], Progress Notes * LESLIE GROSS RDOB:1950 (73 yo F)Acc No.[id number]:05/03/2024 Patient: LESLIE HIRSCH Provider: YULI KENNEDY :1950 A ge:73 Y S ex:Female Date:05/03/2024 Address:[facility] [address] [place], [place] [id number] Pcp:Gerda Saenz MD Subjective: * Chief Complaints: [...] last visit reported I been doing good then I feel week ago I went out to the farm we had and I got depressed about it and I been in pain management for shots in lower back and I can tell anxiety up and days when real tired some nights hard to fall alseep and toss and turn, average 6-7 hours, takes couple hours fall asleep then I sleep good, up 1-2 times for bathroom, I had a cat bite finger and antibiotic, the burning and irritation down in vaginal area came back when anxious and depression and the pain in legs and back then flare up goes away, I guess it is nerve pain, I get it every so often for many years, I will ask pain management. I can tell anxiety today all started last Tuesday. I still do everything and I push self not to sit around and Chavazach has worked a long time and I take Buspar, I am not depressed or worried about anything, just when anxiety goes up the burning and irritation happens I have the pain in leg and painmanagement for it, I take all rx, and I felt better today, besides anxiety, nothing going on, and appetite good, concentration and focus fine I been workign on [employer] program for presentation I ride horse and bike, I will go to [place] 08/18 for my birthday, no psychosis no blanca no SI/HI, memory been so-so. ETOH denies smoking denies drugs denies labs- PCP - monitor cholestrol presently on Cymblata 90 mg daily, Buspar 15 mg twice a day HX Cymbalta and Buspar SLUMS= 28 05/03/24. C [place]-Suicide Severity Rating Scale: Suicide Risk (CSRS-screener) i n the past one month Have you wished you were or wished you could go to sleep and not wake up? N o. D epression screening: PHQ-9 L ittle interest or pleasure in doing things S everal days, F eeling down, depressed, or hopeless S everal days, T rouble falling or staying asleep, or sleeping too much N early every day, F eeling tired or having little energy Several days, P oor appetite or overeating N ot [...] N ot at all, T otal Score 6, I nterpretation M ild Depression. I ntervention D epression Screening Findings P ositve, F ollow-Up for Depression E motional support education, Management of mental health treatment, S uicide Risk Assessment Performed , A dditional Evaluation for Depression P sychiatric interview and evaluation, N brendon of the standardized tool used for adult depression screening: P atient Health Questionnaire (PHQ-9). * ROS: r eports n o shortness [...] lenses. reports no incontinence, no difficulty urinating, no hematuria, and no increased frequency. r eports no muscle aches, no muscle weakness, arthralgias/joint pain, back pain, leg pain, no swelling in the extremities, no neck pain, and no difficulty walking reported nerve pain and has it in vaginal area increase with anxiety and burning and irritation - Cymbalta has helped in pain management - leg, back pain. * Medical History: P laura: Generalized anxiety disorder, Recurrent major depressive episodes, [...] es, D o you have Power of Nail Feeder for Health or Medical? Y es. * Medications: T aking DULoxetine HCl 30 MG Capsule Delayed Release Particles Oral , Taking Folic Acid 1 MG Tablet Oral , Taking Fluticasone Propionate Diskus 50 MCG/ACT Aerosol Powder Breath Activated Inhalation , Notes to Pharmacist: *Reorder from [facility] for eRx and Interaction Alerts*, Taking DULoxetine HCl 60 MG Capsule Delayed Release Particles Oral , Taking Omeprazole 20 MG Capsule Delayed Release Oral , Taking Pentasa 500 MG Capsule Extended Release Oral , Taking AFLURIA QUAD 2722-7639 60 MCG (15 MCG X 4)/0.5 ML INTRAMUSCULAR SUSP. , Notes to Pharmacist: *Reorder from [facility] for eRx and Interaction Alerts*, Taking methylPREDNISolone 4 MG Tablet Therapy Pack Oral , Taking Aspirin 81 MG Tablet Chewable Oral , Taking Atorvastatin Calcium 40 MG Tablet Oral , Taking MESALAMINE ER 500 MG CAPSULE,EXTENDED RELEASE , Notes to Pharmacist: *Reorder from [facility] for eRx and Interaction Alerts*, Taking Vitamin C , Notes to Pharmacist: *Pick strength-form from [facility] for eRX*, Taking Risedronate Sodium 150 MG Tablet Oral , Taking busPIRone HCl 15 MG Tablet 1 tablet Oral Twice a day , Medication List reviewed and reconciled with the patient * Allergies: S ULFA (SULFONAMIDE ANTIBIOTICS): Allergy - Onset Date 12/12/2023. Objective: * Vitals: B P:152/81mm Hg, HR:82/min, Wt:182.2lbs, Wt-k.64 kg, Ht: 64.00 in, Ht-cm: 162.56 cm, BMI:31.27Index, Body Surface Area: 1.93. * Examination: P sychiatry: Appearance: w ell-groomed, [...] i ntact. Assessment: * Assessment: 1. M eddie depressive disorder, recurrent, mild - F33.0 (Primary) 2 . G eneralized anxiety disorder - F41.1 Major depression- Cymbalta 9 0 mg daily patient reported nerve pain and in pain management also for back and leg pain will try to take Cymabalta 60 mg in amd Cymbalta 30 mg evening to help anxiety and nerve pain disucss Cymbalta 60 mg twice a day and patient want to wait until see pain management Anxiety- Buspar 15 mg twice a day SLUMS= 28 05/03/24 http_s://www.mario.org/Mxujj-Rfsqqx-Bjyketa/Qivoeh-Ktamyk-Wfquzvboll http_s://psychcentral.com/depression/ume-lffmnsfqw-brrgzbkt-of-depression#treatm ents http__s://www.nim.nih.gov/health/topics/plshaj-rjmogg-powkubtcubs http__s://www.mario.org/Dovbt-Toekvx-Bjcmfdd/Treatments/Ybllxb-Hrhoyd-Zanjzwliboh educated on all medications, benefits, side effects [...] PATIENT'S SINGLE, SERIOUS CONDITION OR A COMPLEX CONDITION, 37214 COGNITIVE TEST BY HC PRO * Preventive Medicine: Counseling: B P Management: F IRST HYPERTENSIVE BP READING FOLLOW-UP PLAN: e ducated on healthy b/p 120/80monitor b/p at homerefer to PCP, Urgent care/ERheart healthy diet and exciselimit salt intakelimit soda intake and caffieneincrease water, R EFERRAL TO ALTERNATIVE / PRIMARY CARE PROVIDER: _ ___. * Follow Up: 6 Weeks (Reason: f/u rx) * Billing Information: * Visit Code: 08287 OFFICE OUTPATIENT VISIT 25 MINUTES DETAILED HISTORY AND EXAM/MODERATE MEDICAL DECISION MAKING. * Procedure Codes: 90705 BEHAV ASSMT W/SCORE & DOCD/STAND INSTRUMENT. G2211 VISIT COMPLEXITY INHERENT TO ONGOING CARE RELATED TO A PATIENT'S SINGLE, SERIOUS CONDITION OR A COMPLEX CONDITION. 27019 COGNITIVE TEST BY HC PRO. * Sign off status: Completed true * Provider: YULI KENNEDY Date: 1 Generated for Mukesh joseph/Kayli/Taylor on: 0 09/04/2024 02:19 PM [employer] History and Physical Notes * HPI (History of Present Illness) Category Sub-Category Detail Notes Category Not es Depression screening PHQ-9 Little inte rest or pleasure in doing things: Several days Feeling down, depressed, or hopeless: Se veral days Trouble falling or staying asleep, or sl eeping too much: Nearly every day Feeling tired or having little energy: S everal days Poor appetite or overeating: Not at all [...] some way: Not at all Total Score: 6 Interpretation: Mild Depression Intervention Depression Screening Findings: P ositve Follow-Up for Depression: Em otional support education, Management of mental health treatment Suicide Risk Assessment Performed: Additional Evaluation for De pression: Psychiatric interview and evaluation Name of the standardized too l used for adult depression screening:: Patient Health Questionnaire (PHQ-9) Depression Screening MAYELIN-7 (2018 Edition) Feeling nervous, anxious, or on edge: Several days Follow up anxiety nad depression chronic since last visit reported I been doing good then I feel week ago I went out to the farm we had and I got depressed about it and I been in pain management for shots in lower back and I can tell anxiety up and days when real tired some nights hard to fall alseep and toss and turn, average 6-7 hours, takes couple hours fall asleep then I sleep good, up 1-2 times for bathroom, I had a cat bite finger and antibiotic, the burning and irritation down in vaginal area came back when anxious and depression and the pain in legs and back then flare up goes away, I guess it is nerve pain, I get it every so often for many years, I will ask pain management. I can tell anxiety today all started last Tuesday. I still do everything and I push self not to sit around and Angie has worked a long time and I take Buspar, I am not depressed or worried about anything, just when anxiety goes up the burning and irritation happens I have the pain in leg and painmanagement for it, I take all rx, and I felt better today, besides anxiety, nothing going on, and appetite good, concentration and focus fine I been workign on [employer] program for presentation I ride horse and bike, I will go to [place] 08/18 for my birthday, no psychosis no blanca no SI/HI, memory been so-so. ETOH denies smoking denies drugs denies labs- PCP - monitor cholestrol presently on Cymblata 90 mg daily, Buspar 15 mg twice a day HX Cymbalta and Buspar SLUMS= 28 05/03/24 Not being able to stop or control worryi ng: Not at all Worrying too much about different things : Not at all Trouble relaxing: Not at all Being so restless that it is hard to sit still: Not at all Becoming easily annoyed or irritable: Se veral days Feeling afraid as if something awful yolanda ht happen: Not at all Total MAYELIN-7 Score: 2 Interpretation of Total: (0 to 4) No Anx iety [place]-Suicide Severity Rating Scale Suicide Risk (CSRS-screener) in [...]
[2024-09-04 14:22] LABS: Influenza A QL RT-PCR Negative (Negative); Influenza B QL RT-PCR Negative (Negative); RSV RNA, RT-PCR Negative (Negative); SARS-CoV-2 RNA PCR Negative (Negative)
== END 2024-09-04 13:30 | disposition home or self-care (01) ==
LOC: ANHLAB 13:32
PROVIDERS: PCP Family Medicine; Visit Provider Family Medicine
DX: J06.9 Acute upper respiratory infection, unspecified (principal); Z20.822 Contact with and (suspected) exposure to COVID-19
CPT/HCPCS: 87637

== ENCOUNTER 2025-01-28 10:08 | Outpatient (CLI) | payer MEDICARE, SELFPAY ==
--- OUTSIDE RECORDS SUMMARY | 2025-01-28 10:17 | XMS_ITS | Patient Health Record ---
Author Organization [facility] Address [address] [place] [address] Care Team Providers Care Certified Alcohol And Drug Counselor Name Role Phone Gerda Saenz MD Primary Care Provider Consuelo Jauregui Unavailable [phone] Allergies Allergen (clinical drug ingredient) Drug/Non Drug Allergy documented on EMR Reaction Allergy Type Onset Date Status Substance with sulfonamide structure and antibacterial mechanism of action (substance) SULFA (SULFONAMIDE ANTIBIOTICS) (uncoded) Unknown Allergy 12/12/2023 Active Reason For Referral No Information Medications Medication SIG (Take, Route, Frequency, Duration) Notes Start Date End Date Status Risedronate Sodium 150 MG Oral 12/12/2023 Active Vitamin C *Pick strength-form from [employer] for eRX* 12/12/2023 Active Folic Acid 1 MG Oral 12/12/2023 Act carmelina busPIRone HCl 15 MG 1 tablet Oral Twice a day; Duration: 90 days Active Omeprazole 20 MG Oral 12/12/2023 Ac tive DULoxetine HCl 60 MG 1 capsule Oral twice a day; Duration: 90 days Active Fluticasone Propionate Diskus 50 MCG/ACT Inhalation *Reorder from [facility] for eRx and Interaction Alerts* 12/12/2023 Active AFLURIA QUAD 60 MCG (15 MCG X 4)/0.5 ML INTRAMUSCULAR SUSP. *Reorder from [facility] for eRx and Interaction Alerts* 12/12/2023 Active Pentasa 500 MG Oral 12/12/2023 Acti ve DULoxetine HCl 60 MG 1 capsule Oral twice a day; Duration: 90 days Active Aspirin 81 MG Oral 12/12/2023 Activ e methylPREDNISolone 4 MG Oral 12/12/2023 Not-Taking MESALAMINE ER 500 MG CAPSULE,EXTENDED RELEASE *Reorder from [facility] for eRx and Interaction Alerts* 12/12/2023 Active busPIRone HCl 15 MG 1 tablet Oral Twice a day; Duration: 90 days Active Atorvastatin Calcium 40 MG Oral 12/12/2023 Active Immunizations Vaccine Route Administration Date Status Comme [...] Risk Notes Problem Mild recurrent major depression (25933104) Major depressive disorder, recurrent, mild (F33.0) 12/12/19 Active confirmed Problem Generalized anxiety disorder (22811608) Generalized anxiety disorder (F41.1) 12/12/19 Active confirmed Problem Screening for cardiovascular system disease (057993120) Encounter for screening for cardiovascular disorders (Z13.6) Active confirmed Problem Depression screening negative ([id number]) Negative depression screening (Z13.31) Active confirmed Vital Signs Heart Rate 89 /min 11/26/2024 Height-cm 162.56 cm 11/26/2024 Blood pressure diastolic 80 mm Hg 11/26/2024 Weight-kg 83.64 kg 11/26/2024 Height 64.00 in 11/26/2024 Blood pressure systolic 111 mm Hg 11/26/2024 Weight 184.4 lbs 11/26/2024 BMI 31.65 kg/m2 11/26/2024 Encounters Encounter Location Date Provider Diagnosis [facility] [address] [facility] [address] [place] [address] 05/03/2024 Consuelo Caro Major depressive disorder, recurrent, mild F33.0 and Generalized anxiety disorder F41.1 [facility] [address] [place] [address] 06/18/2024 Conuselo Caro Major depressive disorder, recurrent, mild F33.0 and Generalized anxiety disorder F41.1 [facility] [address] [place] [address] 11/26/2024 Consuelo Caro Negative depression screening Z13.31 ; Major depressive disorder, recurrent, mild F33.0 ; Encounter for screening for cardiovascular disorders Z13.6 and Generalized anxiety disorder F41.1 Assessments Encounter [...] twice a day SLUMS= 28 05/03/24 http_s://www.mario. org/Rxjff-Jlkxyo-N llness/Mental-Heal th-Conditions http_s://psychcent Rapid Mobile.com/depression /weq-upmesjpun-pfj frdfl-le-sybicfaxv n#treatments http__s://www.nimh .nih.gov/health/to pics/mental-health -medications http__s://www.mario .org/About-Mental- Illness/Treatments /Xotrpg-Flewnb-Fxk ications educated on all medications, benefits, side [...] twice a day SLUMS= 28 05/03/24 http_s://www.mario. org/Lykcf-Czfngz-V llness/Mental-Heal th-Conditions http_s://psychcent Rapid Mobile.com/depression /qnu-yvssnjmjl-ubo xkxub-lj-eiyhcomlj n#treatments http__s://www.nimh .nih.gov/health/to pics/mental-health -medications http__s://www.mario .org/About-Mental- Illness/Treatments /Ymlipz-Kvxnap-His ications educated on all medications, benefits, side [...] twice a day SLUMS= 28 05/03/24 http_s://www.mario. org/Riakv-Kzgesr-C llness/Mental-Heal th-Conditions http_s://psychcent Rapid Mobile.com/depression /qyp-cfibykwvl-egb gmzmx-bv-tzbhapgkc n#treatments http__s://www.nimh .nih.gov/health/to pics/mental-health -medications http__s://www.mario .org/About-Mental- Illness/Treatments /Ojnpzp-Thpxhx-Whc ications educated on all medications, benefits, side [...] potential neurotoxicity and interactions with prescribed medications. 11/26/2024 Major depressive disorder, recurrent, mild (ICD-10 - F33.0) 1. Major depression- Cymbalta 60 mg twice a day patient reported nerve pain and in pain management also for back and leg pain- plan to see neurologist see PCP hx anxiety and nerve pain- flare ups disucss and educated on Cymbalta 60 mg twice a day pain management 2. Anxiety- Buspar 15 mg twice a day SLUMS= 28 05/03/24 http_s://www.mario. org/Wwzwf-Zyqxqw-K llness/Mental-Heal th-Conditions http_s://PeekYou.com/depression /laj-ajotpgdvw-axg rwhqu-cc-ckbrpnvbt n#treatments http__s://www.nimh .nih.gov/health/to pics/mental-health -medications http__s://www.mario .org/About-Mental- Illness/Treatments /Ebwuui-Djuycd-Aum ications educated on all medications, benefits, side [...] potential neurotoxicity and interactions with prescribed medications. 11/26/2024 Negative depression screening (ICD-10 - Z13.31) 1. Major depression- Cymbalta 60 mg twice a day patient reported nerve pain and in pain management also for back and leg pain- plan to see neurologist see PCP hx anxiety and nerve pain- flare ups disucss and educated on Cymbalta 60 mg twice a day pain management 2. Anxiety- Buspar 15 mg twice a day SLUMS= 28 05/03/24 http_s://www.mario. org/Awnpm-Ktltyz-E llness/Mental-Heal th-Conditions http_s://psychcent Rapid Mobile.com/depression /wqe-kwnmbqtvj-fxq oxrxr-ci-zehkgwfxo n#treatments http__s://www.nimh .nih.gov/health/to pics/mental-health -medications http__s://www.mario .org/About-Mental- Illness/Treatments /Cuddec-Ajufqp-Lwx ications educated on all medications, benefits, side [...] potential neurotoxicity and interactions with prescribed medications. 11/26/2024 Encounter for screening for cardiovascular disorders (ICD-10 - Z13.6) 1. Major depression- Cymbalta 60 mg twice a day patient reported nerve pain and in pain management also for back and leg pain- plan to see neurologist see PCP hx anxiety and nerve pain- flare ups disucss and educated on Cymbalta 60 mg twice a day pain management 2. Anxiety- Buspar 15 mg twice a day SLUMS= 28 05/03/24 http_s://www.mario. org/Vlnbg-Ryvmkk-F llness/Mental-Heal th-Conditions http_s://psychM.dot.com/depression /dtp-zxnptjapq-ffb dvfsf-in-fibkxligd n#treatments http__s://www.nimh .nih.gov/health/to pics/mental-health -medications http__s://www.mario .org/About-Mental- Illness/Treatments /Mzzfja-Rfshyo-Tbc ications educated on all medications, benefits, side [...] twice a day SLUMS= 28 05/03/24 http_s://www.mario. org/Gbclm-Gzkqve-G llness/Mental-Heal th-Conditions http_s://psychcent Rapid Mobile.com/depression /vlc-vqvzynlrr-pda lkqeh-jb-mojstgkok n#treatments http__s://www.nimh .nih.gov/health/to pics/mental-health -medications http__s://www.mario .org/About-Mental- Illness/Treatments /Ppifxv-Bbvslt-Cgk ications educated on all medications, benefits, side [...] potential neurotoxicity and interactions with prescribed medications. 11/26/2024 Generalized anxiety disorder (ICD-10 - F41.1) 1. Major depression- Cymbalta 60 mg twice a day patient reported nerve pain and in pain management also for back and leg pain- plan to see neurologist see PCP hx anxiety and nerve pain- flare ups disucss and educated on Cymbalta 60 mg twice a day pain management 2. Anxiety- Buspar 15 mg twice a day SLUMS= 28 05/03/24 http_s://www.mario. org/Gkfqr-Kprkyn-N llness/Mental-Heal th-Conditions http_s://psychM.dot.com/depression /fgq-jvieuvgxf-ore rvoke-ep-lagnstomi n#treatments http__s://www.nimh .nih.gov/health/to pics/mental-health -medications http__s://www.mario .org/About-Mental- Illness/Treatments /Ltwziy-Qgfluc-Cbh ications educated on all medications, benefits, side [...] Next Appt Details Provider Name:Consuelo Caro , 05/27/2025 11:00:00 AM, [address] [facility] [address] [facility] [address], [place], [address], Insurance Providers Payer Name Payer Address Payer Phone Subscriber Number Group Number Insured Name Patient Relationship to Insured Coverage Start Date Coverage End Date [employer] Medicare Replacemen t/Advantag e - Ppo [address] [place] [address] [id number] LESLIE GROSS Self - patient is the insured Medicare-I l Medicare [address] [place] [address] [id number] LESLIE GROSS Self - patient is the insured Medical (General) History Medical History History ICD Code Problems: Generalized anxiety disorder Recurrent major depressive episodes, mil d , Surgical History Surgery Date(Month/Year) Removal of gallbladder (59115) Heart surgery 12/23/2010
--- OUTSIDE RECORDS SUMMARY | 2025-01-28 10:17 | XMS_ITS | Clinical Summary ---
Author Organization [facility] [address] Address [address] [place] [address] Care Team Providers Care Air Deodorizer Servicer Name Role Phone Gerda Saenz MD Primary Care Provider [phone] Allergies Active Allergy Reactions Criticality Noted Date Comments Sulfa (Sulfonamide Antibiotics) Medications busPIRone (BUSPAR) 15 mg tablet take 1 tablet (15MG) by oral route 2 times every day 0 2 Active aspirin (ASPIRIN LOW DOSE) 81 mg tablet take 1 Tablet (81MG) by oral route every day 0 2 Active niacin ER (NIASPAN EXTENDED-RELEASE) 500 mg CR tablet take 1 tablet (500MG) by oral route every day at bedtime after a low-fat snack [address] (CYMBALTA) 60 mg capsule Take 1 capsule (60 mg total) by mouth daily Active citalopram (CeleXA) 20 mg tablet Active vit B onpq-S-rmkts acid-vit D3 800 mcg- 2,000 unit tablet,chewable Take by mouth Active omeprazole (PriLOSEC) 20 mg capsule 2 Active alendronate (FOSAMAX) 70 mg tabletIndications :Age-related osteoporosis without current pathological fracture 1 tablet by mouth weekly in morning with full glass of water on empty stomach.Do not take anything else by mouth or lie down for next 30 min 4 tablet 11 2 Active folic acid (FOLVITE) 1 mg tablet Take 1 tablet (1 mg total) by mouth daily 30 tablet 3 2 Active atorvastatin (LIPITOR) 40 mg tablet TAKE ONE TABLET BY MOUTH DAILY 30 tablet [address] (CYMBALTA) 30 mg capsule Take 1 capsule (30 mg total) by mouth daily 4 Active ezetimibe (ZETIA) 10 mg tablet TAKE 1 TABLET (10 MG TOTAL) BY MOUTH DAILY 90 tablet 2 5 08/17/19 26 Active Active Problems Problem Noted Date Diagnosed Date [...] knee 09/30/2020 Coronary artery disease invo lving [place] coronary artery of [place] heart without angina pectoris 12/26/2018 Dyslipidemia 06/28/2017 Assessment & Plan (10/15/2021 11:17 AM CDT): Due for lab, will continue on statin and ASA given CAD. Will continue to monitor. Closed fracture of capitulum of humerus 07/09/20 13 Crohn's disease 06/12/2012 Assessment & Plan (10/15/2021 11:18 AM [...] Urinary tract bacterial infections 12/17/2015 10/15/2021 Immunizations Immunization Administration Dates Next Due Flucelvax Influenza Quad 07/22/2021 Influenza, Quadrivalent, Mariah l Culture-based MDCK, Preservative Free, Antibiotic Free, Intramuscular 10/08/2019 Influenza, Quadrivalent, Split, Intramuscular Pfizer SARS-CoV-2 Monovalent Vaccination (12+ Yrs) PURPLE 10/23/2020,09/24/2020 Surgical History Surgery Date Site/Laterality Comments CORONARY ARTERY BYPASS GRAFT 07/25/2010 - 07/24/2011 Medical History Medical History Date Comments Crohn's disease (HCC) Crohn's Di sease Anxiety Depression Coronary artery disease invo lving [place] coronary artery of [place] heart without angina pectoris 12/26/2018 Dyslipidemia 06/28/2017 [...] on file Legal Sex Female 1:58 AM DATA CLERK Gender Identity Not on file Sexual Orientation Not on file Obstetrics History Last Filed Vital Signs Vital Sign Reading Time Taken Comments Blood Pressure 118/62 08/30/2024 10:29 AM DATA CLERK Pulse 94 08/30/2024 10:29 AM DATA CLERK Temperature 35.8 C (96.4 F) 09/30/2020 1:23 PM DATA CLERK Respiratory Rate 98 02/15/2023 9:32 AM CDT Oxygen Saturation 98% 08/30/2024 10:29 AM DATA CLERK Inhaled Oxygen Concentration - - Weight 86.3 kg (190 lb 4.8 oz) 08/30/2024 10:29 AM DATA CLERK Height 162.6 cm (5' 4) 08/30/2024 10:29 AM DATA CLERK Body Mass Index 32.66 08/30/2024 10:29 AM DATA CLERK Plan of Treatment Health Maintenance Due Date Last Done Comments Colon Cancer Screening-Colonoscopy 1950 Hepatitis C Screening 1950 DTaP/Tdap/Td Vaccine (1 - Tdap) 1960 Hepatitis B Screening 1967 Pneumococcal vaccine 65+ (1 of 1 - PCV) 1999 Zoster Vaccine (1 of 2) 1999 Depression Screening 10/15/2022 10/15/2021, 10/01/19 21 Fall Risk Assessment 10/15/2022 10/15/2021, 10/01/19 21 Well Visit 65+ 10/15/2022 10/15/2021, 09/30/2020 Osteoporosis Screening-Bone Density Scan 12/06/2022 12/06/2020 Covid-19 Vaccine (3 - 2023-2 5 season) 2024 10/23/2020, 09/24/2020 Influenza Vaccine (Season Ended) 2025 07/27/2021, 07/22/2021, 10/08/2019, Additional history exists Procedures Procedure Name Priority Date/Time Associated Diagnosis Comments DEXA SCAN Routine 12/06/2020 from Last 3 Months or Most Recently Relevant to Health Maintenance Results * (ABNORMAL) DEXA SCAN (12/06/2020) Scribed Deca Scan Abnormal 12/06/2020 Historical Provider MD HEALTH MAINTENANCE Final Result from Last 3 Months or Most Recently Relevant to Health Maintenance Insurance AETNA MEDICARE AETNA MEDICARE Care Teams Air Deodorizer Servicer Relationship Specialty Start Date End Date Gerda Saenz MD PCP - General Family Medicine 02/15/23
--- OUTSIDE RECORDS SUMMARY | 2025-01-28 10:17 | XMS_ITS | Encounter Summary ---
Author Organization [facility] Address [address] [place] [address] Care Team Providers Care Rail Director Name Role Phone Robert Kang MD Primary Care Provider [phone] Mateo Chavez MD Primary Care Provider + Mateo Chavez MD Primary Care Provider + Gerda Saenz MD Primary Care Provider [phone] Encounter Details Date Type Department Care Team (Late st Contact Info) Description 03/29/2018 Orders Only [facility] Health Information Release Services [address] [place] [address] [address] [place] [address] Robert Kang MD [address] [place] [id number] Social History Tobacco Use Types Packs/Day Years Used Date Smoking Tobacco: Never Comments:Smoking History Pac ks/day: 0 Packs Alcohol Use Standard Drinks/Week Comments No 0 (1 standard drink = 0.6 oz pur e alcohol) Comments Unknown Sex and Gender Information Value Date Recorded Sex Assigned at Not on file Legal Sex Female 1:58 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 Gender Identity Not on file Sexual Orientation Not on file documented as of this encounter Plan of Treatment Not on file documented as of this encounter Visit Diagnoses Not on filedocumented in this encounter Care Teams Rail Director Relationship Specialty Start Date End Date Robert Kang MD PCP - General 05/11/12 09/21/20 Mateo Chavez MD PCP - General Internal Medicine 09/22/20 10/14/22 Mateo Chavez MD [address] [place], [place] [address]LOLI GLEASON [address] [place] [id number] PCP - General Internal Medicine 12/24/22 02/14/23 Gerda Saenz MD [address] [place] [address] DARA GLEASON [address] [place] [id number] PCP - General Family Medicine 02/15/23 documented as of this encounter
--- OUTSIDE RECORDS SUMMARY | 2025-01-28 10:17 | XMS_ITS | Referral Summary ---
Author Organization [facility] [address] Address [address] [place] [address] Care Team Providers Care Horser Up Name Role Phone Gerda Saenz MD Primary Care Provider [phone] Allergies Active Allergy Reactions Criticality Noted Date [...] (CeleXA) 20 mg tablet Active vit B ebsa-C-kunfy acid-vit D3 800 mcg- 2,000 unit tablet,chewable [...] knee 09/30/2020 Coronary artery disease invo lving [place] coronary artery of [place] heart without angina pectoris 12/26/2018 Dyslipidemia 06/28/2017 [...] on file Legal Sex Female 1:58 AM RESOLUTION AGENT Gender Identity Not on file Sexual Orientation Not on file Last Filed Vital Signs Vital Sign Reading Time Taken Comments Blood Pressure 118/62 08/30/2024 10:29 AM RESOLUTION AGENT Pulse 94 08/30/2024 10:29 AM RESOLUTION AGENT Temperature 35.8 C (96.4 F) 09/30/2020 1:23 PM RESOLUTION AGENT Respiratory Rate 98 02/15/2023 9:32 AM CDT Oxygen Saturation 98% 08/30/2024 10:29 AM RESOLUTION AGENT Inhaled Oxygen Concentration - - Weight 86.3 kg (190 lb 4.8 oz) 08/30/2024 10:29 AM RESOLUTION AGENT Height 162.6 cm (5' 4) 08/30/2024 10:29 AM RESOLUTION AGENT Body Mass Index 32.66 08/30/2024 10:29 AM RESOLUTION AGENT Plan of Treatment Not on file Procedures Procedure Name Priority Date/Time Associated Diagnosis Comments HM DEXA SCAN Routine 12/06/2020 from Last 3 Months or Most Recently Relevant to Health Maintenance Results * (ABNORMAL) DEXA SCAN (12/06/2020) Scribed Deca Scan Abnormal 12/06/2020 Historical Provider HEALTH MAINTENANCE Final Result from Last 3 Months or Most Recently Relevant to Health Maintenance Insurance T MEDICARE T MEDICARE Care Teams Horser Up Relationship Specialty Start Date End Date Gerda Saenz MD PCP - General Family Medicine 02/15/23
--- OUTSIDE RECORDS SUMMARY | 2025-01-28 10:17 | XMS_ITS | Clinical Summary ---
Author Organization [facility] Address [address] [place] [address] Care Team Providers Care Cone Winder Name Role Phone Unavailable Primary Care Provider Unavailabl e Source Comments [facility],non-owned Affiliates and Associated Physician Practices is amultiple site organization consisting of ambulatory clinics and hospital sitesin [place], [place], [place] and [place]. This disclosure is being madepursuant to the Care Everywhere program and may not contain all information available regarding this patient. 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 Gender Identity Not on file Sexual Orientation [...] VACCINE ( - 2023-2 5 season) 2024 DEPRESSION SCREENING 07/25/2024 MEDICARE AWV CALENDAR YEAR 2024 Respiratory Syncytial Virus (RSV) Vaccine Pt: or over 60 yrs (1 - 1-dose 75+ series) 2024 INFLUENZA VACCINE (Season Ended) 2025 HEPATITIS B VACCINE Aged Out No longe r eligible based on patient's age to complete this topic HIB VACCINE Aged Out No longer eligi ble based on patient's age to complete this topic HPV VACCINE Aged Out No longer eligi ble based on patient's age to complete this topic MENINGOCOCCAL (Group B) VACC INE SHARED DECISION-MAKING Aged Out No longer eligibl e based on patient's age to complete this topic MENINGOCOCCAL GROUPS A/C/Y/W VACCINE Aged Out No longer eligible b ased on patient's age to complete this topic Insurance AETNA MEDICARE ADV SELF PAY NO INSURANCE Member Subscriber Plan / Payer (Ef fective for All Dates) Name:Joya Gross Member ID:Not on file Relation to Subscriber:Not on file Name:JOYA GROSS Subscriber ID:Not on file (Home) Address: [address] [place] [id number] Payer ID:Not on file Group ID:Not on file Type:Self Pay Address: [place], [place]
[2025-01-28 10:37] LABS: Add Urine Microscopic? YES; Appearance Urine Clear (Clear); Glucose Urine UA Negative (Negative); Leukocyte Esterase Ur 2+ LEU/UL (Negative); Nitrate Urine Negative (Negative); Non Pathogenic Casts 0-2; Specific Grav Ur 1.009 (1.001-1.035)
== END 2025-01-28 10:09 | disposition home or self-care (01) ==
PROVIDERS: PCP Family Medicine; Visit Provider Psychiatry & Neurology Neurology
DX: R82.90 Unspecified abnormal findings in urine (principal); M54.42 Lumbago with sciatica, left side; R73.03 Prediabetes
CPT/HCPCS: 81001; 87086

== ENCOUNTER 2025-02-20 11:45 | Emergency (ER) | payer MEDICARE, SELFPAY ==
[2025-02-20] VITALS (69 sets, daily range): BP systolic 108–193; BP diastolic 78–101; PULSE 62–105; RESP 12–22; TEMP 36.7–36.9; O2SAT 91–100
--- NOTE | ~2025-02-20 | XR_ITS ---
CHEST RADIOGRAPH CLINICAL HISTORY: chest pain . COMPARISON: 05/04/2022 TECHNIQUE: Single portable view of the chest. FINDINGS Sternal wires and mediastinal clips are identified, the wires are midline and intact. Uncurling of the thoracic aorta is identified. The remainder of the cardiomediastinal silhouette is otherwise unremarkable. Interstitial thickening is identified with a bibasilar distribution, right greater than left 2 well-circumscribed nodules within the right upper lobe measuring 8.4 and 6.7 mm, respectively for w hich cross-sectional imaging (noncontrast enhanced CT examination of the chest) is recommended for fu rther evaluation. The remainder of the lungs are clear. IMPRESSION: 2 well-circumscribed nodules within the right upper lobe measuring 8.4 and 6.7 mm, respectively, for which cross-sectional imaging (noncontrast enhanced CT examination of the chest) is recommended for f urther evaluation. Bibasilar interstitial thickening, a nonspecific finding. No focal infiltrate or effusion is appreciated. Reviewed, dictated and finalized at location A. IMPRESSION: 2 well-circumscribed nodules within the right upper lobe measuring 8.4 and 6.7 mm, respectively, for which cross-sectional imaging (noncontrast enhanced CT ex amination of the chest) is recommended for further evaluation. Bibasilar interstitial thickening, a nonspecific finding. No focal infiltrate or effusion is appreciated.
--- NOTE | 2025-02-20 11:59 | ECG_ITS ---
Test Date: 2025-02-20 11:53:59 Measurements Intervals [place] Rate: 72 P: 64 UT: 176 QRS: 100 QRSD: 104 T: 87 QT: 403 QTc: 443 Interpretive Statements SINUS RHYTHM RIGHT AXIS DEVIATION MINIMAL Q WAVES- INFERIOR LEADS NONSPECIFIC ST & T-WAVE ABNORMALITY- ANTEROLAT/HIGH LAT LEADS BORDERLINE ECG No previous ECG available for comparison Electronically Signed On 02-20-2025 16:31:13 CDT by Josiah Massey D.O.
--- OUTSIDE RECORDS SUMMARY | 2025-02-20 11:59 | XMS_ITS | Clinical Summary ---
Author Organization [facility] Address [address] [place] [address] Care Team Providers Care Senior Accountant Cpa Name Role Phone Unavailable Primary Care Provider Unavailabl e Source Comments [facility],non-owned Affiliates and Associated Physician Practices is amultiple site organization consisting of ambulatory clinics and hospital sitesin [place], [place], [place] and [place]. This disclosure is being madepursuant to the Care Everywhere program and may not contain all information available regarding this patient. 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
--- OUTSIDE RECORDS SUMMARY | 2025-02-20 11:59 | XMS_ITS | Clinical Summary ---
Author Organization [facility] [address] Address [address] [place] [address] Care Team Providers Care Income Tax Investigator Name Role Phone Gerda Saenz MD Primary Care Provider [phone] Allergies Active Allergy Reactions Criticality Noted Date [...] (CeleXA) 20 mg tablet Active vit B rbtw-L-dmqpc acid-vit D3 800 mcg- 2,000 unit tablet,chewable [...] knee 09/30/2020 Coronary artery disease invo lving [place] coronary artery of [place] heart without angina pectoris 12/26/2018 Dyslipidemia 06/28/2017 [...] Anxiety Depression Coronary artery disease invo lving [place] coronary artery of [place] heart without angina pectoris 12/26/2018 Dyslipidemia 06/28/2017 [...] on file Legal Sex Female 1:58 AM 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 Gender Identity Not on file Sexual Orientation Not on file Obstetrics History Last Filed Vital Signs Vital Sign Reading Time Taken Comments Blood Pressure 118/62 08/30/2024 10:29 AM 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 Pulse 94 08/30/2024 10:29 AM 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 Temperature 35.8 C (96.4 F) 09/30/2020 1:23 PM 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 Respiratory Rate 98 02/15/2023 9:32 AM CDT Oxygen Saturation 98% 08/30/2024 10:29 AM 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 Inhaled Oxygen Concentration - - Weight 86.3 kg (190 lb 4.8 oz) 08/30/2024 10:29 AM 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 Height 162.6 cm (5' 4) 08/30/2024 10:29 AM 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 Body Mass Index 32.66 08/30/2024 10:29 AM 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 Plan of Treatment Health Maintenance Due Date [...] season) 2024 10/23/2020, 09/24/2020 Influenza Vaccine (#1) 2025 , 07/22/2021, 10/08/2019, Additional history exists Procedures Procedure [...] Insurance AETNA MEDICARE AETNA MEDICARE Care Teams Income Tax Investigator Relationship Specialty Start Date End Date Gerda Saenz MD PCP - General Family Medicine 02/15/23
--- OUTSIDE RECORDS SUMMARY | 2025-02-20 11:59 | XMS_ITS | Encounter Summary ---
Author Organization [facility] Address [address] [place] [address] Care Team Providers Care Crew Manager Name Role Phone Robert Kang MD Primary Care Provider [phone] Mateo Chavez MD Primary Care Provider + Mateo Chavez MD Primary Care Provider + Gerda Saenz MD Primary Care Provider [phone] Encounter Details Date Type Department Care Team (Late st Contact Info) Description 03/29/2018 Orders Only [facility] Health Information Release Services [address] [place] [address] [address] [place] [address] Robert Kang MD [address] [place] [id number] Social History Tobacco Use Types Packs/Day Years Used Date Smoking Tobacco: Never Comments:Smoking History Pac ks/day: 0 Packs Alcohol Use Standard Drinks/Week Comments No 0 (1 standard drink = 0.6 oz pur e alcohol) Comments Unknown Sex and Gender Information Value Date Recorded Sex Assigned at Not on file 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 Gender Identity Not on file Sexual Orientation Not on file documented as of this encounter Plan of Treatment Not on file documented as of this encounter Visit Diagnoses Not on filedocumented in this encounter Care Teams Crew Manager Relationship Specialty Start Date End Date Robert Kang MD PCP - General 05/11/12 09/21/20 Mateo Chavez MD PCP - General Internal Medicine 09/22/20 10/14/22 Mateo Chavez MD [address] [place], [place] [address]LOLI GLEASON [address] [place] [id number] PCP - General Internal Medicine 12/24/22 02/14/23 Gerda Saenz MD [address] [place] [address] DARA GLEASON [address] [place] [id number] PCP - General Family Medicine 02/15/23 documented as of this encounter
--- OUTSIDE RECORDS SUMMARY | 2025-02-20 11:59 | XMS_ITS | Referral Summary ---
Author Organization [facility] [address] Address [address] [place] [address] Care Team Providers Care Plating Foreman Name Role Phone Gerda Saenz MD Primary Care Provider [phone] Allergies Active Allergy Reactions Criticality Noted Date [...] (CeleXA) 20 mg tablet Active vit B mbah-K-zajhy acid-vit D3 800 mcg- 2,000 unit tablet,chewable [...] knee 09/30/2020 Coronary artery disease invo lving sycuan coronary artery of sycuan heart without angina pectoris 12/26/2018 Dyslipidemia 06/28/2017 [...] on file Legal Sex Female 1:58 AM DIAGNOSTIC RADIOLOGIC TECHNOLOGIST Gender Identity Not on file Sexual Orientation Not on file Last Filed Vital Signs Vital Sign Reading Time Taken Comments Blood Pressure 118/62 08/30/2024 10:29 AM DIAGNOSTIC RADIOLOGIC TECHNOLOGIST Pulse 94 08/30/2024 10:29 AM DIAGNOSTIC RADIOLOGIC TECHNOLOGIST Temperature 35.8 C (96.4 F) 09/30/2020 1:23 PM DIAGNOSTIC RADIOLOGIC TECHNOLOGIST Respiratory Rate 98 02/15/2023 9:32 AM CDT Oxygen Saturation 98% 08/30/2024 10:29 AM DIAGNOSTIC RADIOLOGIC TECHNOLOGIST Inhaled Oxygen Concentration - - Weight 86.3 kg (190 lb 4.8 oz) 08/30/2024 10:29 AM DIAGNOSTIC RADIOLOGIC TECHNOLOGIST Height 162.6 cm (5' 4) 08/30/2024 10:29 AM DIAGNOSTIC RADIOLOGIC TECHNOLOGIST Body Mass Index 32.66 08/30/2024 10:29 AM DIAGNOSTIC RADIOLOGIC TECHNOLOGIST Plan of Treatment Not on file Procedures [...] Insurance T MEDICARE T MEDICARE Care Teams Plating Foreman Relationship Specialty Start Date End Date Gerda Saenz MD PCP - General Family Medicine 02/15/23
--- OUTSIDE RECORDS SUMMARY | 2025-02-20 11:59 | XMS_ITS | Patient Health Record ---
Author Organization [facility] Address [address] [place] [address] Care Team Providers Care Stem Lead Former Name Role Phone Gerda Saenz MD Primary Care Provider Consuelo Jauregui Unavailable [phone] Allergies Allergen (clinical drug ingredient) Drug/Non Drug [...] 12/12/2023 Active Vitamin C *Pick strength-form from [employer] for eRX* 12/12/2023 Active Folic Acid 1 MG Oral 12/12/2023 Act carmelina busPIRone HCl 15 MG 1 tablet Oral Twice a day; Duration: 90 days Active Omeprazole 20 MG Oral 12/12/2023 Ac tive DULoxetine HCl 60 MG 1 capsule Oral twice a day; Duration: 90 days Active Fluticasone Propionate Diskus 50 MCG/ACT Inhalation *Reorder from [employer] for eRx and Interaction Alerts* 12/12/2023 Active AFLURIA QUAD 60 MCG (15 MCG X 4)/0.5 ML INTRAMUSCULAR SUSP. *Reorder from [employer] for eRx and Interaction Alerts* 12/12/2023 Active Pentasa 500 MG Oral 12/12/2023 Acti ve DULoxetine HCl 60 MG 1 capsule Oral twice a day; Duration: 90 days Active Aspirin 81 MG Oral 12/12/2023 Activ e methylPREDNISolone 4 MG Oral 12/12/2023 Not-Taking MESALAMINE ER 500 MG CAPSULE,EXTENDED RELEASE *Reorder from [employer] for eRx and Interaction Alerts* 12/12/2023 Active [...] Risk Notes Problem Mild recurrent major depression (39709123) Major depressive disorder, recurrent, mild (F33.0) 12/12/19 Active confirmed Problem Generalized anxiety disorder (01330524) Generalized anxiety disorder (F41.1) 12/12/19 Active confirmed Problem Screening for cardiovascular system disease (869526382) Encounter for screening for cardiovascular disorders (Z13.6) Active confirmed Problem Depression screening negative ([id number]) Negative depression screening (Z13.31) Active confirmed Vital Signs Heart Rate 89 /min 11/26/2024 Height-cm 162.56 cm 11/26/2024 Blood pressure diastolic 80 mm Hg 11/26/2024 Weight-kg 83.64 kg 11/26/2024 Height 64.00 in 11/26/2024 Blood pressure systolic 111 mm Hg 11/26/2024 Weight 184.4 lbs 11/26/2024 BMI 31.65 kg/m2 11/26/2024 Encounters Encounter Location Date Provider Diagnosis [facility] [employer] [facility] [address] [facility] [address] [place] [address] 05/03/2024 Consuelo Caro Major depressive disorder, recurrent, mild F33.0 and Generalized anxiety disorder F41.1 [facility] [employer] [facility] [address] [place] [address] 06/18/2024 Consuelo Caro Major depressive disorder, recurrent, mild F33.0 and Generalized anxiety disorder F41.1 [facility] [employer] [facility] [address] [place] [address] 11/26/2024 Consuelo Caro Negative depression screening Z13.31 [...] twice a day SLUMS= 28 05/03/24 http_s://www.mario. org/Ihaet-Rcmgnp-G llness/Mental-Heal th-Conditions http_s://psychcent [employer].com/depression /odd-hgzoysuhr-lnn lkbas-pn-fhgsnbblz n#treatments http__s://www.nimh .nih.gov/health/to pics/mental-health -medications http__s://www.mario .org/About-Mental- Illness/Treatments /Qkyrnu-Pfvhut-Iic ications educated on all medications, benefits, side [...] twice a day SLUMS= 28 05/03/24 http_s://www.mario. org/Tplib-Xdtzuh-E llness/Mental-Heal th-Conditions http_s://psychcent [employer].com/depression /mcf-mdajxzxst-ieq tqqui-qv-hnlwvsizi n#treatments http__s://www.nimh .nih.gov/health/to pics/mental-health -medications http__s://www.mario .org/About-Mental- Illness/Treatments /Pjqlez-Hgwovw-Keu ications educated on all medications, benefits, side [...] twice a day SLUMS= 28 05/03/24 http_s://www.mario. org/Vixme-Jhyafu-Z llness/Mental-Heal th-Conditions http_s://psychcent [employer].com/depression /knp-rvmrytfra-tdh jfxwq-hx-cigtiqcsv n#treatments http__s://www.nimh .nih.gov/health/to pics/mental-health -medications http__s://www.mario .org/About-Mental- Illness/Treatments /Paetac-Dgwcrs-Lzr ications educated on all medications, benefits, side [...] twice a day SLUMS= 28 05/03/24 http_s://www.mario. org/Fkhkb-Sckysl-O llness/Mental-Heal th-Conditions http_s://[employer].com/depression /olh-dwazcqtzl-ilr yqyuc-pi-qkizlzznj n#treatments http__s://www.nimh .nih.gov/health/to pics/mental-health -medications http__s://www.mario .org/About-Mental- Illness/Treatments /Elerds-Ycmaex-Sqj ications educated on all medications, benefits, side [...] twice a day SLUMS= 28 05/03/24 http_s://www.mario. org/Neavn-Qcyrag-S llness/Mental-Heal th-Conditions http_s://psychcent [employer].com/depression /bvm-icsogfhtc-wvg wgaxy-bm-ocunhbdhs n#treatments http__s://www.nimh .nih.gov/health/to pics/mental-health -medications http__s://www.mario .org/About-Mental- Illness/Treatments /Hbiglq-Slxjaw-Xmh ications educated on all medications, benefits, side [...] twice a day SLUMS= 28 05/03/24 http_s://www.mario. org/Yqsvb-Xbukuq-A llness/Mental-Heal th-Conditions http_s://psych9+.com/depression /tec-ptwznaqxx-tro prkax-pg-mipphjkog n#treatments http__s://www.nimh .nih.gov/health/to pics/mental-health -medications http__s://www.mario .org/About-Mental- Illness/Treatments /Alynlg-Ayrndu-Jia ications educated on all medications, benefits, side [...] twice a day SLUMS= 28 05/03/24 http_s://www.mario. org/Slfwk-Sqghpc-T llness/Mental-Heal th-Conditions http_s://psychcent [employer]ost.com/depression /rpn-jdxowqkpr-imo vwfvl-ke-vkyyxaxzp n#treatments http__s://www.nimh .nih.gov/health/to pics/mental-health -medications http__s://www.mario .org/About-Mental- Illness/Treatments /Obbtiz-Cclsdj-Nbf ications educated on all medications, benefits, side [...] twice a day SLUMS= 28 05/03/24 http_s://www.mario. org/Ungzh-Mecbtq-K llness/Mental-Heal th-Conditions http_s://psych9+.com/depression /pzl-kaylyupbp-bof bdeoy-th-pyqijgfxj n#treatments http__s://www.nimh .nih.gov/health/to pics/mental-health -medications http__s://www.mario .org/About-Mental- Illness/Treatments /Gttpft-Ykxldp-Wpm ications educated on all medications, benefits, side [...] Name:Consuelo Caro , 05/27/2025 11:00:00 AM, [address] [facility] [address], [facility] [address], [place], [address], Insurance Providers Payer Name Payer Address Payer Phone Subscriber Number Group Number Insured Name Patient Relationship to Insured Coverage Start Date Coverage End Date [employer] Medicare Replacemen t/Advantag e - Ppo [address] [place] [address] [id number] LESLIE GROSS Self - patient is the insured Medicare-I l Medicare [address] [place] [address] [id number] LESLIE GROSS Self - patient is the insured Medical (General) History Medical History History ICD Code Problems: Generalized anxiety disorder Recurrent major depressive episodes, mil d , Surgical History Surgery Date(Month/Year) Removal of gallbladder (83235) Heart surgery 12/23/2010
--- NOTE | 2025-02-20 12:07 | ED.CHESTPAIN ---
HPI - Chest Pain General Chief Complaint: Chest Pain Stated Complaint: high blood pressure Source: patient Mode of arrival: ambulatory Limitations: no limitations History of Present Illness HPI narrative: 74-year-old female history of anxiety, dyslipidemia,CAD status post CABG 2010 presents to the ED with -- woke up this morning at 4:00 a.m. drenched in sweats with anterior chest and upper back pain. Subsequently she has continued to have muscle pain on the back and the front of the chest. No nausea/vomiting. No shortness of breath. MD complaint: chest heaviness Pertinent past history: coronary artery disease and CABG Onset (ago): hour(s) ( 8 hours) Timing of current episode: constant Prior episodes: No Onset: during rest Pain location: other ( anterior chest and upper back pain.) Pain radiation: none Severity: mild Quality: aching Relieving factors: nothing Exacerbating factors: nothing Treatment prior to arrival: aspirin Risk Factors Coronary artery disease risk factors: hyperlipidemia and hypertension Thoracic aortic dissection risk factors: longstanding hypertension Related Data Home Medications ?Medication ?Instructions ?Recorded ?Confirmed ?Last Taken ?Type buspirone 15 mg tablet 15 mg PO BID 05/19/21 01/15/25 Unknown History niacin 500 mg tablet 500 mg PO DAILY 05/19/21 01/15/25 Unknown History ascorbic acid (vitamin C) 500 mg 250 mg PO DAILY 01/24/23 01/15/25 Unknown History tablet cholecalciferol (vitamin D3) 10 10 mcg PO DAILY 01/24/23 01/15/25 Unknown History mcg (400 unit) capsule omega 6-alj-edg-fish oil 60 mg-90 1 cap PO DAILY 01/24/23 01/15/25 Unknown History mg-500 mg capsule (Fish Oil) citalopram 20 mg tablet 20 mg PO DAILY 06/13/23 01/15/25 Unknown History duloxetine 60 mg capsule,delayed 60 mg PO BID 07/19/24 01/15/25 Unknown History release (Cymbalta) Allergies Allergy/AdvReac Type Severity Reaction Status Date / Time Sulfa (Sulfonamide Allergy Unknown Anaphylaxis Verified 02/20/25 12:27 Antibiotics) Review of Systems Review of Systems: All systems reviewed & are unremarkable except as noted in HPI and below Constitutional: Constitutional: Reports as per HPI and Reports no additional constitutional complaints Eyes: Eyes: Reports as per HPI and Reports no additional eye complaints ENT: Reports system reviewed and no additional complaints, except as documented and Reports as per HPI Cardiovascular: Cardiovascular: Reports as per HPI, Reports no additional cardiovascular complaints and Reports chest pain Respiratory: Respiratory: Reports as per HPI and Reports no additional respiratory complaints Gastrointestinal: Gastrointestinal: Reports as per HPI and Reports no additional gastrointestinal complaints Genitourinary: Genitourinary: Reports no additional female genitourinary complaints and Reports as per HPI Musculoskeletal: Musculoskeletal: Reports no additional musculoskeletal complaints and Reports as per HPI Integumentary/Breasts: Skin/Breast: Reports system reviewed and no additional complaints, except as docu and Reports as per HPI Neurologic: Reports system reviewed and no additional complaints, except as documented and Reports as per HPI Psychiatric: Psychiatric: Reports no additional psychiatric complaints and Reports as per HPI Endocrine: Endocrine: Reports no additional endocrine complaints and Reports as per HPI Hematologic/Lymphatic: Hematologic/Lymphatic: Reports no additional hematologic/lymphatic complaints and Reports as per HPI Allergic/Immunologic: Allergic/Immunologic: Reports no additional allergic/immunologic complaints and Reports as per HPI [facility] Past Medical History Medical History Bilateral calf pain Colon cancer screening IBS (irritable bowel syndrome) Crohn disease CAD (coronary artery disease) Anxiety Surgical History Surgical History H/O heart bypass surgery November 2010 Family History Family History Father Heart disease Mother Hypertension Heart disease Sibling Breast cancer Social History Social History Smoking status: Never smoker Second hand tobacco smoke exposure: No Alcohol intake: never Substance use: never Substance use type: does not use Living arrangements: with family Occupation/Education: retired Gender identity (if verbalized by the patient): Female Sexual Orientation (if Verbalized by the Patient): Straight or Heterosexual Spiritual care concerns: No Agree to blood products: Yes Exam Narrative: Blood pressure 182/89 Const: General: no acute distress Orientation/consciousness: patient oriented x3 Limitations: no limitations HENMT: Head: normal to inspection Ears: external ears normal Face/Nose/Sinus: Normal external nose present Face and sinus: normal facial exam Mouth: Yes Normal oral and palatal mucosa present Throat: posterior oropharynx normal Eyes: Conjunctivae: conjunctivae normal Pupils: Equal, round and reactive pupils present EOM: EOMs intact bilaterally Direct Ophthalmoscopy: no photophobia Neck: Neck: normal visual inspection, no lymphadenopathy and no meningeal signs Resp: Effort & Inspection: normal respiratory effort Auscultation: clear to auscultation bilaterally Cardio: Rate: regular rate Rhythm: regular rhythm GI: Auscultation: normal bowel sounds Other: no tenderness/ rigidity /rebound : General: Yes no CVA tenderness Back/Spine/Pelvis: Back: no CVA tenderness Skin: General skin exam: normal color Rashes: no rashes Wounds: no wounds Neuro: General: patient oriented x3, moves all extremities, no meningeal signs and no focal motor deficits Speech: normal speech Extrem: General: normal to inspection and no clubbing, cyanosis or edema Psych: Mental Status: mental status grossly normal Affect: Anxious affect present Attitude: cooperative Course Course Emergency Course: 74-year-old female with CAD status post CABG, dyslipidemia presented with an 8 hour history of anterior and posterior chest pain. EKG reveals no acute ST elevation but ST depression in the anteroseptal leads. Troponin was negative noted to be 0.10. Repeat EKG revealed new ST depression T inversion in inferior and lateral leads. Questionable ST elevation in 1, aVL. Repeat troponin was noted to be 0.20 unstable angina/ non STEMI Vital Signs Vital signs: Vital Signs Pulse Rate 73 02/20/25 11:45 Temperature 36.9 C 02/20/25 11:49 Pulse Rate 97 02/20/25 16:01 Respiratory Rate 19 02/20/25 16:01 Blood Pressure 173/101 H 02/20/25 15:46 Pulse Oximetry 98 02/20/25 16:01 Oxygen Delivery Room Air 02/20/25 14:46 MDM - Chest Pain MDM Narrative Medical decision making narrative: unstable angina/non STEMI Differential Diagnosis Differential diagnosis: Likely pneumothorax Medical Records Data Attestation: I reviewed the patient's medical records. Lab Data Attestation: I reviewed the patient's lab results. 02/20/25 12:10 02/20/25 12:10 Labs: Lab Results 02/20/25 02/20/25 02/20/25 Range/Units 12:07 12:10 14:35 WBC 7.4 (4.8-10.8) K/mm3 RBC 5.09 (4.20-5.40) M/mm3 Hgb 14.3 H (11.7-13.8) g/dL Hct 44.6 H (35.0-42.0) % MCV 87.6 (78.0-102.0) fL MCH 28.1 (27.0-31.0) pg MCHC 32.1 (32-36) g/dL RDW 12.3 (11.6-14.4) % Plt Count 254 (150-420) K/mm3 MPV 10.1 (9.2-11.8) fl Immature Gran % (Auto) 0.3 H (0.0-0.0) % Neut % (Auto) 69.8 (50.0-70.0) % Lymph % (Auto) 16.3 L (18.0-42.0) % Alcorn % (Auto) 10.8 (2.0-11.0) % Eos % (Auto) 2.3 (1.0-6.0) % Baso % (Auto) 0.5 (0.0-1.0) % Lymph # (Auto) 1.21 (1.10-4.50) K/mm3 Alcorn # (Auto) 0.80 (0.10-0.90) K/mm3 Eos # (Auto) 0.17 (0.02-0.50) K/mm3 Baso # (Auto) 0.04 (0.00-0.10) K/mm3 Abs Immat Gran (auto) 0.02 H (0.00-0.00) K/mm3 Absolute Neuts (auto) 5.19 (1.70-7.20) K/mm3 Absolute Nucleated RBC 0.00 (0.00-0.00) K/mm3 Nucleated RBC % 0.0 (0-0.0) % PT 10.7 (9.50-12.1) Seconds INR 1.0 APTT 28.7 (23.9-30.70) Sec Sodium 138 (137-145) mmol/L Potassium 4.3 (3.4-5.0) mmol/L Chloride 105 (98-107) mmol/L Carbon Dioxide 26 (22-30) mmol/L Anion Gap 7 (4-12) mmol/L BUN 19 H (7-17) mg/dL Creatinine 1.25 H (0.7-1.0) mg/dL Estim Creat Clear Calc 36 ml/min Estimated GFR 42 L (59 - ) Glucose 168 H (65-110) mg/dL Calculated Osmolality 292 (285-295) mOsm/kg Lactic Acid 1.4 (0.4-2.0) mmol/L Calcium 9.5 (8.4-10.2) mg/dL Total Bilirubin 0.5 (0.2-1.3) mg/dL AST 30 (14-36) U/L ALT 20 (6-35) U/L Alkaline Phosphatase 110 (38-126) U/L Troponin I 0.101 H* 0.231 H* D (0.000-0.034) ng/mL NT-Pro-B Natriuret Pep 253 H (19.9-100) pg/mL Total Protein 7.4 (6.3-8.2) g/dL Albumin 4.4 (3.5-5.1) g/dL ECG Data EKG #1: ECG completion date: 02/20/25 ECG completion time: 11:53 Interpretation: normal sinus rhythm. Right axis deviation. ST depression and T inversion in anterior leads. Prominent Q-waves in inferior leads. EKG #2: ECG completion date: 02/20/25 ECG completion time: 15:20 Interpretation: normal sinus rhythm. Left deviation. New T-wave inversion in 2 3 AVF and normalization of days and the 1 night of the 3 which was initially inverted. No ST elevation noted. Discharge Plan Discharge Clinical Impression: Unstable angina pectoris Patient Disposition: Still a Patient Condition: Stable Additional Instructions: transfer patient to [facility]. Patient has been accepted by Shauna Goldsmith and temporary help agency referral clerk Anna Patient Language: Eritrean Prescriptions: No Action cholecalciferol (vitamin D3) 10 mcg (400 unit) capsule 10 mcg PO DAILY ascorbic acid (vitamin C) 500 mg tablet 250 mg PO DAILY omega 5-ged-abc-fish oil [Fish Oil] 60-90-500 mg capsule 1 cap PO DAILY pregabalin 75 mg capsule 75 mg PO TID Qty: 90 2RF Rx Instructions: take 1 capsule 3 times a day at the beginning of the pain spasm in your lower back and pelvic area. It may be taken as 1 tablet in the morning and 2 capsules at night. Further increase in the dose can be made if symptoms do not resolve meloxicam 15 mg tablet 15 mg PO DAILY Qty: 30 1RF Rx Instructions: 1 tablet daily when there is a flare up of pain in the pelvic area, after meals buspirone 15 mg tablet 15 mg PO BID niacin 500 mg tablet 500 mg PO DAILY citalopram 20 mg tablet 20 mg PO DAILY atorvastatin [Lipitor] 40 mg tablet 40 mg PO DAILY Qty: 90 2RF ibandronate 150 mg tablet 150 mg PO MONTHLY Qty: 12 0RF duloxetine [Cymbalta] 60 mg capsule,delayed release(DR/EC) 60 mg PO BID omeprazole 20 mg capsule,delayed release(DR/EC) 20 mg PO DAILY Qty: 90 1RF Follow-up/Referrals: UNKNOWN,DOCTOR [Non-Staff] - Time of Disposition: 17:27
[2025-02-20 12:16] LABS: Hematocrit 44.6 % (35.0-42.0); Hemoglobin 14.3 g/dL (11.7-13.8); Immature Granulocyte Percent A 0.3 % (0.0-0.0); Lymphocytes Absolute Auto 1.21 K/mm3 (1.10-4.50); Mean Corpuscular HGB Conc 32.1 g/dL (32-36); Mean Corpuscular Hemoglobin 28.1 pg (27.0-31.0); Mean Corpuscular Volume 87.6 fL (78.0-102.0); Nucleated Red Blood Cells Absolute Auto 0.00 K/mm3 (0.00-0.00); Nucleated Red Blood Cells Perc 0.0 % (0-0.0); Platelet Count Result 254 K/mm3 (150-420); Red Blood Count 5.09 M/mm3 (4.20-5.40); White Blood Count 7.4 K/mm3 (4.8-10.8)
--- OUTSIDE RECORDS SUMMARY | 2025-02-20 12:23 | XMS_ITS | Encounter Summary ---
Author Organization [facility] Address [address] [place] [address] Care Team Providers Care Stoper Name Role Phone Robert Kang MD Primary Care Provider [phone] Mateo Chavez MD Primary Care Provider + Mateo Chavez MD Primary Care Provider + Gerda Saenz MD Primary Care Provider [phone] Encounter Details Date Type Department Care Team (Late st Contact Info) Description 03/29/2018 Orders Only [facility] Health Information Release Services [address] [place] [address] [address] [place] [address] Robert Kang MD [address] [place] [id number] Social History Tobacco Use Types Packs/Day Years Used Date Smoking Tobacco: Never Comments:Smoking History Pac ks/day: 0 Packs Alcohol Use Standard Drinks/Week Comments No 0 (1 standard drink = 0.6 oz pur e alcohol) Comments Unknown Sex and Gender Information Value Date Recorded Sex Assigned at Not on file Legal Sex Female 1:58 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 Gender Identity Not on file Sexual Orientation Not on file documented as of this encounter Plan of Treatment Not on file documented as of this encounter Visit Diagnoses Not on filedocumented in this encounter Care Teams Stoper Relationship Specialty Start Date End Date Robert Kang MD PCP - General 05/11/12 09/21/20 Mateo Chavez MD PCP - General Internal Medicine 09/22/20 10/14/22 Mateo Chavez MD [address] [place], [place] [address]LOLI GLEASON [address] [place] [id number] PCP - General Internal Medicine 12/24/22 02/14/23 Gerda Saenz MD [address] [place] [address] DARA GLEASON [address] [place] [id number] PCP - General Family Medicine 02/15/23 documented as of this encounter
--- OUTSIDE RECORDS SUMMARY | 2025-02-20 12:23 | XMS_ITS | Clinical Summary ---
Author Organization [facility] Address [address] [place] [address] Care Team Providers Care Metal And Plastic Heater Name Role Phone Unavailable Primary Care Provider Unavailabl e Source Comments [facility],non-owned Affiliates and Associated Physician Practices is amultiple site organization consisting of ambulatory clinics and hospital sitesin [place], [place], [place] and [place]. This disclosure is being madepursuant to the Care Everywhere program and may not contain all information available regarding this patient. Last updated 18.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
--- OUTSIDE RECORDS SUMMARY | 2025-02-20 12:23 | XMS_ITS | Clinical Summary ---
Author Organization [facility] [address] Address [address] [place] [address] Care Team Providers Care Production Drilling Machine Operator Name Role Phone Gerda Saenz MD Primary Care Provider [phone] Allergies Active Allergy Reactions Criticality Noted Date [...] (CeleXA) 20 mg tablet Active vit B unqb-Z-lqmka acid-vit D3 800 mcg- 2,000 unit tablet,chewable [...] knee 09/30/2020 Coronary artery disease invo lving [place] coronary artery of [place] heart without angina pectoris 12/26/2018 Dyslipidemia 06/28/2017 [...] Anxiety Depression Coronary artery disease invo lving [place] coronary artery of [place] heart without angina pectoris 12/26/2018 Dyslipidemia 06/28/2017 [...] on file Legal Sex Female 1:58 AM 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 CLERK Gender Identity Not on file Sexual Orientation Not on file Obstetrics History Last Filed Vital Signs Vital Sign Reading Time Taken Comments Blood Pressure 118/62 08/30/2024 10:29 AM ACCOUNTANT CLERK Pulse 94 08/30/2024 10:29 AM ACCOUNTANT CLERK Temperature 35.8 C (96.4 F) 09/30/2020 1:23 PM ACCOUNTANT CLERK Respiratory Rate 98 02/15/2023 9:32 AM CDT Oxygen Saturation 98% 08/30/2024 10:29 AM ACCOUNTANT CLERK Inhaled Oxygen Concentration - - Weight 86.3 kg (190 lb 4.8 oz) 08/30/2024 10:29 AM ACCOUNTANT CLERK Height 162.6 cm (5' 4) 08/30/2024 10:29 AM ACCOUNTANT CLERK Body Mass Index 32.66 08/30/2024 10:29 AM ACCOUNTANT CLERK Plan of Treatment Health Maintenance Due [...] Insurance AETNA MEDICARE AETNA MEDICARE Care Teams Production Drilling Machine Operator Relationship Specialty Start Date End Date Gerda Saenz MD PCP - General Family Medicine 02/15/23
--- OUTSIDE RECORDS SUMMARY | 2025-02-20 12:23 | XMS_ITS | Referral Summary ---
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 Gender Identity Not on file Sexual Orientation Not on file Last Filed Vital Signs Vital Sign Reading Time Taken Comments Blood Pressure 118/62 08/30/2024 10:29 AM PAINTING CONTRACTOR Pulse 94 08/30/2024 10:29 AM PAINTING CONTRACTOR Temperature 35.8 C (96.4 F) 09/30/2020 1:23 PM PAINTING CONTRACTOR Respiratory Rate 98 02/15/2023 9:32 AM CDT Oxygen Saturation 98% 08/30/2024 10:29 AM PAINTING CONTRACTOR Inhaled Oxygen Concentration - - Weight 86.3 kg (190 lb 4.8 oz) 08/30/2024 10:29 AM PAINTING CONTRACTOR Height 162.6 cm (5' 4) 08/30/2024 10:29 AM PAINTING CONTRACTOR Body Mass Index 32.66 08/30/2024 10:29 AM PAINTING CONTRACTOR Plan of Treatment Not on file Procedures [...] Insurance T MEDICARE T MEDICARE Care Teams Underwriting Assistant Relationship Specialty Start Date End Date Gerda Saenz MD PCP - General Family Medicine 02/15/23
[2025-02-20 12:29] LABS: Alanine Aminotransferase 20 U/L (6-35); Albumin Level 4.4 g/dL (3.5-5.1); Alkaline Phosphatase 110 U/L (38-126); Anion Gap 7 mmol/L (4-12); Aspartate Amino Transferase 30 U/L (14-36); Bilirubin,Total 0.5 mg/dL (0.2-1.3); Blood Urea Nitrogen 19 mg/dL (7-17); Calcium 9.5 mg/dL (8.4-10.2); Carbon Dioxide 26 mmol/L (22-30); Chloride 105 mmol/L (98-107); Estimated CRCL calculation 36 ml/min; Estimated Glomerular Filt Rate 42; Glucose 168 mg/dL (65-110); Osmolality Calculated 292 mOsm/kg (285-295); Potassium 4.3 mmol/L (3.4-5.0); Sodium 138 mmol/L (137-145); Total Protein 7.4 g/dL (6.3-8.2)
[2025-02-20 12:40] LABS: NT Pro B Type Natriuretic Pept 253 pg/mL (19.9-100)
[2025-02-20 12:42] LABS: Troponin I 0.101 ng/mL (0.000-0.034)
--- NOTE | 2025-02-20 12:54 | PC.NURSE ---
dietary tray requested and order placed.
--- NOTE | 2025-02-20 14:01 | PC.NURSE ---
pt ate 100% meal provided. denies chest pain. call tang in reach. watching tv
--- NOTE | 2025-02-20 14:27 | PC.NURSE ---
dr ramesh in with pt discussing plan of care. repeat troponin to be drawn at 1430.
[2025-02-20 15:07] LABS: Troponin I 0.231 ng/mL (0.000-0.034)
--- NOTE | 2025-02-20 15:26 | ECG_ITS ---
Test Date: 2025-02-20 15:20:51 Measurements Intervals [place] Rate: 95 P: 19 [place]: 172 QRS: -27 QRSD: 117 T: -26 QT: 377 QTc: 475 Interpretive Statements SINUS RHYTHM INTRAVENTRICULAR CONDUCTION DELAY VOLTAGE CRITERIA FOR LVH MINIMAL Q WAVES- HIGH LATERAL LEADS ST-T WAVE ABNORMALITY IN INFERIOR LEADS- CONSIDER ISCHEMIA BASELINE ARTIFACT- I, III, AVR, AVL, AVF, V6 ABNORMAL ECG Compared to ECG 02/20/2025 11:53:59 POSSIBLE ISCHEMIA NOW PRESENT Electronically Signed On 02-20-2025 16:32:57 CDT by Josiah Massey D.O.
[2025-02-20] MEDS: HEPARIN SOD/D5W 100 UNITS/ML 25,000 UNITS/250 ML BAG 8 UNITS IV CONT (15:49)
[2025-02-20 15:53] LABS: INR 1.0; Partial Thromboplastin Time 28.7 Sec (23.9-30.70); Prothrombin Time 10.7 Seconds (9.50-12.1)
[2025-02-20] MEDS: METOPROLOL TARTRATE 25 MG TABLET PO (15:57)
--- NOTE | 2025-02-20 17:40 | PC.NURSE ---
patient had bowel movement
== END 2025-02-20 20:19 | disposition short-term general hospital (02) ==
PROVIDERS: Emergency Provider Internal Medicine Critical Care Medicine; PCP Family Medicine
DX: I20.0 Unstable angina (principal); I10 Essential (primary) hypertension; R91.8 Other nonspecific abnormal finding of lung field; I25.810 Atherosclerosis of coronary artery bypass graft(s) without angina pectoris; E78.5 Hyperlipidemia, unspecified; Z95.1 Presence of aortocoronary bypass graft
CPT/HCPCS: 36415; 71045; 80053; 83605; 83880; 84484; 85025; 85610; 85730; 93005; 96365; 96366; 99285; A9270; J1644

== ENCOUNTER 2025-02-21 06:09 | Observation (INO) | payer MEDICARE, SELFPAY ==
--- NOTE | 2025-02-20 21:05 | ADMGEN ---
This patient, Joya Mota, was admitted to IMU Room 201-[place] [facility] [place] Patient/family oriented to hospital policies and general routines including ID bracelet, bed and alarms, visiting hours, pain management, procedures, bathroom and other care routines, personal items, smoking policy, room service/diet, and visiting hours. Information on how to activate the Rapid Response Team has been discussed. Patient/Family are encouraged to report perceived risks to care and to ask questions if they do not understand what they are told or what they should do.
[2025-02-20 21:13] VITALS: BMI 31.8
[2025-02-20 21:25] VITALS: PULSE 72
--- NOTE | 2025-02-20 21:46 | P.HP_ITS ---
H&P: HPI History of Present Illness Date/Time: 02/20/25 21:46 Chief Complaint: Chest pain Narrative: 74-year-old female with past medical history of a 4 vessel CABG in 2010, CAD, anxiety and hyperlipidemia presents the hospital with chest pain. She states that she woke up around 4:00 a.m. diaphoretic with indigestion and upper back pain.. She denies nausea vomiting or shortness of breath. She denies chest p ain or tightness. Patient being transferred from [facility] for higher level of care and cardiology consult. Lab work at the outside facility shows a hemoglobin of 14.3, BUN of 19, creatinine of 1.25 with baseline being around 1.1, glucose of 163, troponins of 0.101 and 0.231. EKG shows sinus rhythm with ST and T-wave abnormality. Patient was started on heparin drip at outside facility. Review of Systems Review of Systems: 12 systems were reviewed and are negativ e except for as per HPI. [facility] Past Medical History Medical History Bilateral calf pain Colon cancer screening IBS (irritable bowel syndrome) Crohn disease CAD (coronary artery disease) Anxiety Surgical History Surgical History H/O heart bypass surgery November 2010 Family History Family History Father Heart disease Mother Hypertension Heart disease Sibling Breast cancer Social History Social History Smoking status: Never smoker Second hand tobacco smoke exposure: No Alcohol intake: never Substance use: never Substance use type: does not use Lack of Transportation: No Lack of Food: Never True Current Housing: I Have Housing Concerned About Future Housing: No Difficulty Paying Gas/Electric Bills: No Difficulty Paying for Meds: No Currently Unemployed: No Education: High School Diploma/GED Difficulty w/ Childcare or Family Care: No Living arrangements: with family Occupation/Education: retired Gender identity (if verbalized by the patient): Female Sexual Orientation (if Verbalized by the Patient): Straight or Heterosexual Spiritual care concerns: No Agree to blood products: Yes Meds Home Medications and Allergies Home Medications ?Medication ?Instructions ?Recorded ?Confirmed ?Type buspirone 15 mg tablet 15 mg PO .Q12HR 05/19/21 02/20/25 History niacin 500 mg tablet 500 mg PO QHS 05/19/21 02/20/25 History ascorbic acid (vitamin C) 500 mg 250 mg PO QHS 01/24/23 02/20/25 History tablet cholecalciferol (vitamin D3) 10 10 mcg PO .Q12HR 01/24/23 02/20/25 History mcg (400 unit) capsule omega 5-zof-gcj-fish oil 60 mg-90 1 cap PO DAILY 01/24/23 02/20/25 History mg-500 mg capsule (Fish Oil) duloxetine 60 mg capsule,delayed 60 mg PO .Q12HR 07/19/24 02/20/25 History release (Cymbalta) omeprazole 20 mg capsule,delayed 20 mg PO DAILY #90 caps 09/03/24 02/20/25 Rx release aspirin 81 mg capsule 81 mg PO DAILY 02/20/25 02/20/25 History atorvastatin 40 mg tablet (Lipitor) 10 mg PO QHS 02/20/25 02/20/25 History ezetimibe 10 mg tablet 10 mg PO QHS 02/20/25 02/20/25 History Allergies Allergy/AdvReac Type Severity Reaction Status Date / Time Sulfa (Sulfonamide Allergy Unknown Anaphylaxis Verified 02/20/25 12:27 Antibiotics) Exam Narrative: General: well appearing, appears stated age. HEENT: normocephalic, atraumatic. Mucous membranes moist. EOMI, PERRLA, bilateral sclera anicteric, no conjunctival injection. Neck supple without JVD, lymphadenopathy, or bruit. Respiratory: clear to ascultation bilaterally. No rales/rhonic/wheezes. Cardiovascular: Regular rate and rhythm, normal S1-S2 upon ascultation. No murmurs, rubs, or clicks. PMI is nondisplaced, capillary refill less than 3 second. Abdomen: Soft, round, no pulsatile masses, nondistended and nontender. No rebound, no guarding. No CVA tenderness, no hepatosplenomegaly. Bowel sounds present to all four quadrants. No high pitch or tinkling sounds, resonant to percussion. Extremities: No cyanosis, clubbing, or edema present. Pulses are palpable 2/2. Active ROM to all four extremities. Neuro: Alert and orientated x 4. PERRLA. Cranial nerves 2-12 intact without focal deficit. Skin: Warm, dry, and intact, without rash, erythema, or lesion. Psych: pleasant, cooperative, normal speech, normal affect, no hallucinations, no dysarthia Assessment and Plan Assessment and plan (1) Elevated troponin: Code(s): R79.89 - Other specified abnormal findings of blood chemistry Status: Acute Assessment and Plan: Cardiology consulted Heparin drip NPO midnight for possible procedure Trend troponins Nitro EKG p.r.n. (2) CAD (coronary artery disease): Code(s): I25.10 - Atherosclerotic heart disease of [place] coronary artery without angina pectoris Status: Acute Assessment and Plan: History of CABG in 2010 Continue Zetia and aspirin (3) Anxiety: Code(s): F41.9 - Anxiety disorder, unspecified Status: Acute Assessment and Plan: Continue buspirone and Cymbalta (4) Heartburn: Code(s): R12 - Heartburn Status: Acute Assessment and Plan: Tums and omeprazole Quality VTE Prophylaxis VTE prophylaxis: mechanical ordered and pharmacologic ordered Hospitalist MIPS Advance Care Plan I have confirmed that the patient's Advanced Care Plan is present, code status is documented, or surrogate decision maker is listed in patient medical record.: Yes Medication Reconciliation I have utilized all available resources to obtain, update and review the patients current medications (includes all prescriptions, OTC, herbals, cannabis, and nutritional supplements).: Yes
[2025-02-20 21:54] LABS: INR 1.1; Prothrombin Time 14.7 Seconds (11.1-14.7)
[2025-02-20 21:56] LABS: Partial Thromboplastin Time 68.3 Seconds (22.3-36.8)
[2025-02-20 22:00] VITALS: BP 150/91; PULSE 66; PULSE 68; RESP 16; TEMP 36.9; O2SAT 99
--- NOTE | 2025-02-20 22:07 | ECG_ITS ---
Test Date: 2025-02-20 22:11:54 Measurements Intervals [place] Rate: 60 P: 49 [place]: 175 QRS: 65 QRSD: 110 T: 36 QT: 442 QTc: 445 Interpretive Statements SINUS RHYTHM INFERIOR MYOCARDIAL INFARCTION [40+ ms Q WAVE AND/OR ST/T ABNORMALITY IN II/aVF], OF INDETERMINATE AGE MODERATE T-WAVE ABNORMALITY, CONSIDER ANTEROLATERAL ISCHEMIA [-0.1+ mV T WAVE IN V3-V6] Compared to ECG 02/20/2025 15:20:51 Myocardial infarct finding now present T-wave abnormality still present Possible ischemia still present Electronically Signed On 02-21-2025 11:04:32 CDT by Basim Douglas M.D.
[2025-02-20 22:08] LABS: Troponin I 10.000 ng/mL (0.000-0.034)
[2025-02-20] MEDS: HEPARIN SOD/D5W 100 UNITS/ML 25,000 UNITS/250 ML BAG IV CONT (22:08)
[2025-02-20 23:20] VITALS: BP 127/68; PULSE 71; RESP 17; TEMP 36.7; O2SAT 97
[2025-02-21] VITALS (24 sets, daily range): BP systolic 100–142; BP diastolic 59–89; PULSE 58–91; RESP 12–21; TEMP 36.6–37; O2SAT 94–100
--- NOTE | ~2025-02-21 | CT_ITS ---
CLINICAL INDICATION: Abnormal chest x-ray COMPARISON: Radiographic evaluation of the chest dated 02/20/2025. TECHNIQUE: Multiple contiguous axial images of the chest was performed without the administration of intravenous contrast. This CT examination was performed utilizing dose reduction techniques. DLP: 244 mGy-cm FINDINGS/OBSERVATIONS: LUNG:Within the superior segment of the right lower lobe is a 6.5 x 6.9 mm part solid nodule correspo nding to the medial most abnormality seen on chest radiograph. In addition, within the right posterior sixth rib is a well-circumscribed sclerotic focus correspondi ng to the more lateral abnormality seen on chest radiograph The remainder of the lungs are clear. Cylindrical bronchiectasis is identified. HEART: The heart is borderline enlarged, without pericardial effusion. MEDIASTINUM: No pathologically enlarged or morphologically suspicious lymph nodes are identified within the medias tinum, bilateral axilla, within the soft tissues of the anterior chest wall. SOFT TISSUES OF THE CHEST: Unremarkable. BONES OF THE CHEST: No acute fracture. No lytic or additional blastic lesions are identified. IMPRESSION: 6.5 x 6.9 mm part solid nodule within the superior segment of the right lower lobe for which follow-u p as per Fleischner guidelines is recommended. Fleischner's guidelines recommends CT at 3-6 months to confirm persistence followed by annual CT for 5 years. Reviewed, dictated and finalized at location A. IMPRESSION: 6.5 x 6.9 mm part solid nodule within the superior segment of the right lower l obe for which follow-up as per Fleischner guidelines is recommended. Fleischner's guidelines recommends CT at 3-6 months to confirm persistence foll owed by annual CT for 5 years.
--- NOTE | 2025-02-21 00:17 | PC.NURSE ---
Cardiology called about pts troponin of 10.0, voicemail left.
[2025-02-21] MEDS: DULoxetine HCL 60 MG CAPSULE.DR PO ×3 (00:26→22:06)
[2025-02-21] MEDS: EZETIMIBE 10 MG TABLET PO ×2 (00:26→22:06)
[2025-02-21] MEDS: ATORVASTATIN 10 MG TABLET PO ×2 (00:26→22:06)
[2025-02-21 03:34] LABS: Hematocrit 45.7 % (37.0-47.0); Hemoglobin 15.0 g/dL (12.0-15.0); Immature Granulocyte Percent A 0.3 % (0-0.5); Lymphocytes Absolute Auto 2.12 K/mm3 (0.9-3.2); Mean Corpuscular HGB Conc 32.8 g/dl (32-36); Mean Corpuscular Hemoglobin 28.7 pg (26-34); Mean Corpuscular Volume 87.4 fl (80-100); Nucleated Red Blood Cells Absolute Auto 0.000 K/mm3 (0.0-0.012); Nucleated Red Blood Cells Perc 0.0 % (0.0-0.2); Platelet Count Result 233 k/mm3 (150-375); Red Blood Count 5.23 M/mm3 (4.2-5.4); White Blood Count 14.4 K/mm3 (4.5-10.0)
[2025-02-21 03:47] LABS: Anion Gap 7 mmol/L (4-12); Blood Urea Nitrogen 14 mg/dL (7-17); Calcium 9.6 mg/dL (8.4-10.2); Carbon Dioxide 22 mmol/L (22-30); Chloride 101 mmol/L (98-107); Estimated CRCL calculation 50 ml/min; Estimated Glomerular Filt Rate > 60; Glucose 142 mg/dL (65-110); Partial Thromboplastin Time 62.5 Seconds (22.3-36.8); Potassium 3.9 mmol/L (3.4-5.0); Sodium 130 mmol/L (137-145)
[2025-02-21 04:03] LABS: Troponin I 18.800 ng/mL (0.000-0.034)
--- OUTSIDE RECORDS SUMMARY | 2025-02-21 06:40 | XMS_ITS | Referral Summary ---
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 Gender Identity Not on file Sexual Orientation Not on file Last Filed Vital Signs Vital Sign Reading Time Taken Comments Blood Pressure 118/62 08/30/2024 10:29 AM COMPANY MARKER Pulse 94 08/30/2024 10:29 AM COMPANY MARKER Temperature 35.8 C (96.4 F) 09/30/2020 1:23 PM COMPANY MARKER Respiratory Rate 98 02/15/2023 9:32 AM CDT Oxygen Saturation 98% 08/30/2024 10:29 AM COMPANY MARKER Inhaled Oxygen Concentration - - Weight 86.3 kg (190 lb 4.8 oz) 08/30/2024 10:29 AM COMPANY MARKER Height 162.6 cm (5' 4) 08/30/2024 10:29 AM COMPANY MARKER Body Mass Index 32.66 08/30/2024 10:29 AM COMPANY MARKER Plan of Treatment Not on file Procedures [...] Insurance T MEDICARE T MEDICARE Care Teams Purchase Price Analyst Relationship Specialty Start Date End Date Gerda Saenz MD PCP - General Family Medicine 02/15/23
--- OUTSIDE RECORDS SUMMARY | 2025-02-21 06:40 | XMS_ITS | Patient Health Record ---
Author Organization [facility] Address [address] [place] [address] Care Team Providers Care Senior Director Marketing Name Role Phone Gerda Saenz MD Primary Care Provider Consuelo Jauregui Unavailable [phone] Allergies Allergen (clinical drug ingredient) Drug/Non Drug [...] 12/12/2023 Active Vitamin C *Pick strength-form from [employer] for eRX* 12/12/2023 Active Folic Acid 1 MG Oral 12/12/2023 Act carmelina busPIRone HCl 15 MG 1 tablet Oral Twice a day; Duration: 90 days Active Omeprazole 20 MG Oral 12/12/2023 Ac tive DULoxetine HCl 60 MG 1 capsule Oral twice a day; Duration: 90 days Active Fluticasone Propionate Diskus 50 MCG/ACT Inhalation *Reorder from [employer] for eRx and Interaction Alerts* 12/12/2023 Active AFLURIA QUAD 60 MCG (15 MCG X 4)/0.5 ML INTRAMUSCULAR SUSP. *Reorder from [employer] for eRx and Interaction Alerts* 12/12/2023 Active Pentasa 500 MG Oral 12/12/2023 Acti ve DULoxetine HCl 60 MG 1 capsule Oral twice a day; Duration: 90 days Active Aspirin 81 MG Oral 12/12/2023 Activ e methylPREDNISolone 4 MG Oral 12/12/2023 Not-Taking MESALAMINE ER 500 MG CAPSULE,EXTENDED RELEASE *Reorder from [employer] for eRx and Interaction Alerts* 12/12/2023 Active busPIRone HCl 15 MG 1 tablet Oral Twice a day; Duration: 90 days Active Atorvastatin Calcium 40 MG Oral 12/12/2023 Active Immunizations Vaccine Route Administration Date Status Commsumaya nts Tdap Unknown 07/25/2007 Administered Pfizer Biontech Covid-19 Vac cine 2nd dose Unknown 09/24/2020 Administered Pfizer Biontech Covid-19 Vac cine 2nd dose Unknown 10/23/2020 Administered Social History Tobacco Use: Social History Observation Description Date Details (start date - stop date) Never Smoker NA - NA Sex Assigned At : Social History Observation Description Sex Assigned At Female Tobacco Control (Standard) Question Answer Notes Tobacco use: Nonsmoker Problems Problem Type SNOMED Code ICD Code Onset Dates Problem Status W/U Status Risk Notes Problem Mild recurrent major depression (82159539) Major depressive disorder, recurrent, mild (F33.0) 12/12/19 Active confirmed Problem Generalized anxiety disorder (15508996) Generalized anxiety disorder (F41.1) 12/12/19 Active confirmed Problem Screening for cardiovascular system disease (071924685) Encounter for screening for cardiovascular disorders (Z13.6) Active confirmed Problem Depression screening negative (106898748784753) Negative depression screening (Z13.31) Active confirmed Vital Signs Heart Rate 89 /min 11/26/2024 Height-cm 162.56 cm 11/26/2024 Blood pressure diastolic 80 mm Hg 11/26/2024 Weight-kg 83.64 kg 11/26/2024 Height 64.00 in 11/26/2024 Blood pressure systolic 111 mm Hg 11/26/2024 Weight 184.4 lbs 11/26/2024 BMI 31.65 kg/m2 11/26/2024 Encounters Encounter Location Date Provider Diagnosis [facility] [address] [facility] [address] [place] [address] 05/03/2024 Consuelo Caro Major depressive disorder, recurrent, mild F33.0 and Generalized anxiety disorder F41.1 [facility] [address] [place] [address] 06/18/2024 Consuelo Caro Major depressive disorder, recurrent, mild F33.0 and Generalized anxiety disorder F41.1 [facility] [place] [id number] [place] [address] 11/26/2024 Consuelo Caro Negative depression screening Z13.31 [...] twice a day SLUMS= 28 05/03/24 http_s://www.mario. org/Ikxvm-Ylnswn-U llness/Mental-Heal th-Conditions http_s://psychcent ConnectQuest.com/depression /qbt-ottkxxzbd-vdg jriey-ot-xyooiyiob n#treatments http__s://www.nimh .nih.gov/health/to pics/mental-health -medications http__s://www.mario .org/About-Mental- Illness/Treatments /Nharrl-Umpcjd-Vhn ications educated on all medications, benefits, side [...] twice a day SLUMS= 28 05/03/24 http_s://www.mario. org/Kfxjk-Frwxnu-M llness/Mental-Heal th-Conditions http_s://psychcent ConnectQuest.com/depression /ezn-zerbdcnaf-ghb eapnh-cn-cyemechsd n#treatments http__s://www.nimh .nih.gov/health/to pics/mental-health -medications http__s://www.mario .org/About-Mental- Illness/Treatments /Zvyqbj-Zomyzp-Lws ications educated on all medications, benefits, side [...] twice a day SLUMS= 28 05/03/24 http_s://www.mario. org/Lcbme-Sfpxzg-H llness/Mental-Heal th-Conditions http_s://psychcent ConnectQuest.com/depression /tvf-hmrizdyse-qvj vfrfg-lc-eqkiizcjr n#treatments http__s://www.nimh .nih.gov/health/to pics/mental-health -medications http__s://www.mario .org/About-Mental- Illness/Treatments /Fepzcp-Kjpzlg-Rfe ications educated on all medications, benefits, side [...] twice a day SLUMS= 28 05/03/24 http_s://www.mario. org/Aouih-Slfmxk-V llness/Mental-Heal th-Conditions http_s://ProRadis.com/depression /miv-hdsmthcey-znv rzkuv-pl-zpafgbpvm n#treatments http__s://www.nimh .nih.gov/health/to pics/mental-health -medications http__s://www.mario .org/About-Mental- Illness/Treatments /Gvexed-Wldoiv-Lje ications educated on all medications, benefits, side [...] twice a day SLUMS= 28 05/03/24 http_s://www.mario. org/Zvtye-Ujrnkn-D llness/Mental-Heal th-Conditions http_s://psychcent ConnectQuest.com/depression /uzh-dvddiacgk-ovq qneuh-px-mejfaljxb n#treatments http__s://www.nimh .nih.gov/health/to pics/mental-health -medications http__s://www.mario .org/About-Mental- Illness/Treatments /Weinit-Vxjefi-Zzb ications educated on all medications, benefits, side [...] twice a day SLUMS= 28 05/03/24 http_s://www.mario. org/Anijt-Fsbbcf-A llness/Mental-Heal th-Conditions http_s://psychEtherpad.com/depression /ivh-saxjddkdl-ujl nuxum-jl-vkovzoqrv n#treatments http__s://www.nimh .nih.gov/health/to pics/mental-health -medications http__s://www.mario .org/About-Mental- Illness/Treatments /Nmjyjr-Ytiodh-Tni ications educated on all medications, benefits, side [...] twice a day SLUMS= 28 05/03/24 http_s://www.mario. org/Zalez-Ifrqjt-B llness/Mental-Heal th-Conditions http_s://psychcent ConnectQuest.com/depression /mxr-ayffkxczs-ymd sawqe-rq-tyulcyayo n#treatments http__s://www.nimh .nih.gov/health/to pics/mental-health -medications http__s://www.mario .org/About-Mental- Illness/Treatments /Nbifsa-Psecfz-Lki ications educated on all medications, benefits, side [...] twice a day SLUMS= 28 05/03/24 http_s://www.mario. org/Jjakn-Zxqysn-T llness/Mental-Heal th-Conditions http_s://psychEtherpad.com/depression /tae-nseavxitg-tag zkceh-hf-tuyqbdunk n#treatments http__s://www.nimh .nih.gov/health/to pics/mental-health -medications http__s://www.mario .org/About-Mental- Illness/Treatments /Iihqrp-Wwpoew-Gyj ications educated on all medications, benefits, side [...] Name:Consuelo Caro , 05/27/2025 11:00:00 AM, [address], [facility] [address], [address], Insurance Providers Payer Name Payer Address Payer Phone Subscriber Number Group Number Insured Name Patient Relationship to Insured Coverage Start Date Coverage End Date [employer] Medicare Replacemen t/Advantag e - Ppo [address] [place] [phone] [id number] LESLIE GROSS Self - patient is the insured Medicare-I l Medicare [address] [place] [address] [id number] LESLIE GROSS Self - patient is the insured Medical (General) History Medical History History ICD Code Problems: Generalized anxiety disorder Recurrent major depressive episodes, mil d , Surgical History Surgery Date(Month/Year) Removal of gallbladder (27227) Heart surgery 12/23/2010
--- OUTSIDE RECORDS SUMMARY | 2025-02-21 06:40 | XMS_ITS | Clinical Summary ---
Author Organization [facility] Address [address] [place] [address] Care Team Providers Care Processing Manager Name Role Phone Unavailable Primary Care Provider Unavailabl e Source Comments [facility],non-owned Affiliates and Associated Physician Practices is amultiple site organization consisting of ambulatory clinics and hospital sitesin [place], [place], [place] and [place]. This disclosure is being madepursuant to the Care Everywhere program and may not contain all information available regarding this patient. 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
--- OUTSIDE RECORDS SUMMARY | 2025-02-21 06:40 | XMS_ITS | Clinical Summary ---
Author Organization [facility] [address] Address [address] [place] [address] Care Team Providers Care Vender Name Role Phone Gerda Saenz MD Primary Care Provider [phone] Allergies Active Allergy Reactions Criticality Noted Date [...] (CeleXA) 20 mg tablet Active vit B [id number] acid-vit D3 800 mcg- 2,000 unit tablet,chewable [...] knee 09/30/2020 Coronary artery disease invo lving [place] coronary artery of [place] heart without angina pectoris 12/26/2018 Dyslipidemia 06/28/2017 [...] Anxiety Depression Coronary artery disease invo lving [place] coronary artery of [place] heart without angina pectoris 12/26/2018 Dyslipidemia 06/28/2017 [...] on file Legal Sex Female 1:58 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 AND 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 Gender Identity Not on file Sexual Orientation Not on file Obstetrics History Last Filed Vital Signs Vital Sign Reading Time Taken Comments Blood Pressure 118/62 08/30/2024 10:29 AM DYER AND WASHER Pulse 94 08/30/2024 10:29 AM DYER AND WASHER Temperature 35.8 C (96.4 F) 09/30/2020 1:23 PM DYER AND WASHER Respiratory Rate 98 02/15/2023 9:32 AM CDT Oxygen Saturation 98% 08/30/2024 10:29 AM DYER AND WASHER Inhaled Oxygen Concentration - - Weight 86.3 kg (190 lb 4.8 oz) 08/30/2024 10:29 AM DYER AND WASHER Height 162.6 cm (5' 4) 08/30/2024 10:29 AM DYER AND WASHER Body Mass Index 32.66 08/30/2024 10:29 AM DYER AND WASHER Plan of Treatment Health Maintenance Due Date [...] Insurance AETNA MEDICARE AETNA MEDICARE Care Teams Vender Relationship Specialty Start Date End Date Gerda Saenz MD PCP - General Family Medicine 02/15/23
--- OUTSIDE RECORDS SUMMARY | 2025-02-21 06:40 | XMS_ITS | Encounter Summary ---
Author Organization [facility] Address [address] [place] [id number] Care Team Providers Care Instructor Robotics Name Role Phone Robert Kang MD Primary Care Provider [phone] Mateo Chavez MD Primary Care Provider + Mateo Chavez MD Primary Care Provider + Gerda Saenz MD Primary Care Provider [phone] Encounter Details Date Type Department Care Team (Late st Contact Info) Description 03/29/[address] 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 Gender Identity Not on file Sexual Orientation Not on file documented as of this encounter Plan of Treatment Not on file documented as of this encounter Visit Diagnoses Not on filedocumented in this encounter Care Teams Instructor Robotics Relationship Specialty Start Date End Date Robert Kang MD PCP - General 05/11/12 09/21/20 Mateo Chavez MD PCP - General Internal Medicine 09/22/20 10/14/22 Mateo Chavez MD [address] [place], [place] [address]LOLI GLEASON [address] [place] [id number] PCP - General Internal Medicine 12/24/22 02/14/23 Gerda Saenz MD [address] [place] [address] DARA GLEASON [address] [place] [id number] PCP - General Family Medicine 02/15/23 documented as of this encounter
[2025-02-21 07:30] LABS: Troponin I 21.700 ng/mL (0.000-0.034)
--- NOTE | 2025-02-21 08:01 | PM.CNCAR ---
Assessment and Plan Assessment and plan (1) NSTEMI (non-ST elevated myocardial infarction): Code(s): I21.4 - Non-ST elevation (NSTEMI) myocardial infarction Status: Acute (2) CAD (coronary artery disease): Code(s): I25.10 - Atherosclerotic heart disease of ione coronary artery without angina pectoris Status: Acute Plan NSTEMI-troponin elevated to 10, 18, 21 CAD status post CABG x4 in 2010 Hyperlipidemia Plan: Recommend cardiac catheterization to evaluate coronaries and possible PCI. Risks and benefits discussed with patient and she is agreeable to proceed Continue heparin drip Continue aspirin 81 mg daily Continue atorvastatin TTE today Check and replace electrolytes to keep potassium greater than 4 and magnesium greater than 2 Monitor on telemetry History of Present Illness History of Present Illness Consult date/time: 02/21/25 08:01 Reason For Visit: Chest Pain Narrative: 74-year-old female with history of CAD status post CABG x4 in 2010, hyperlipidemia Crohn's disease, irritable bowel syndrome, anxiety presents with chief complaints of chest pain. Patient states that she woke up yesterday morning at about 5:00 a.m. in cold sweat and had pain in both shoulders, upper back, and the front of her chest. Her symptoms eased up and she went to [facility] to check up on her horses. On the way she had her blood pressure checked which was high and so she presented to a hospital there. Her troponin was noted to be elevated at outside hospital (0.101, 0.231). EKG showed sinus rhythm with ST-T changes. She was started on heparin drip and transferred to [facility] for interventional cardiology care. She denies any chest pain at this time. No dizziness, lightheadedness, palpitations, presyncope, syncope, recent weight gain, leg swelling,, fevers, chills, nausea, abdominal pain, headache. Workup: WBC: 14.4 Troponin: 10, 18.8, 21.7 NT proBNP: 253 EKG: Sinus rhythm with rate of 60, inferior infarct age indeterminate: Anterolateral T-wave changes suggestive of ischemia Chest x-ray: 2 well-circumscribed nodules within the right upper lobe measuring 8.4 and 6.7 mm, respectively, for which cross-sectional imaging (noncontrast enhanced CT examination of the chest) is recommended for further evaluation. Bibasilar interstitial thickening, a nonspecific finding. No focal infiltrate or effusion is appreciated. Review of Systems Review of Systems: A complete review of systems was performed and negative other than those mentioned HPI [facility] Past Medical History Medical History Bilateral calf pain Colon cancer screening IBS (irritable bowel syndrome) Crohn disease CAD (coronary artery disease) Anxiety Surgical History Surgical History H/O heart bypass surgery November 2010 Family History Family History Father Heart disease Mother Hypertension Heart disease Sibling Breast cancer Social History Social History Smoking status: Never smoker Second hand tobacco smoke exposure: No Alcohol intake: never Substance use: never Substance use type: does not use Lack of Transportation: No Lack of Food: Never True Current Housing: I Have Housing Concerned About Future Housing: No Difficulty Paying Gas/Electric Bills: No Difficulty Paying for Meds: No Currently Unemployed: No Education: High School Diploma/GED Difficulty w/ Childcare or Family Care: No Living arrangements: with family Occupation/Education: retired Gender identity (if verbalized by the patient): Female Sexual Orientation (if Verbalized by the Patient): Straight or Heterosexual Spiritual care concerns: No Agree to blood products: Yes Meds Home Medications and Allergies Home Medications ?Medication ?Instructions ?Recorded ?Confirmed ?Type buspirone 15 mg tablet 15 mg PO .Q12HR 05/19/21 02/20/25 History niacin 500 mg tablet 500 mg PO QHS 05/19/21 02/20/25 History ascorbic acid (vitamin C) 500 mg 250 mg PO QHS 01/24/23 02/20/25 History tablet cholecalciferol (vitamin D3) 10 10 mcg PO .Q12HR 01/24/23 02/20/25 History mcg (400 unit) capsule omega 8-tzk-amu-fish oil 60 mg-90 1 cap PO DAILY 01/24/23 02/20/25 History mg-500 mg capsule (Fish Oil) duloxetine 60 mg capsule,delayed 60 mg PO .Q12HR 07/19/24 02/20/25 History release (Cymbalta) omeprazole 20 mg capsule,delayed 20 mg PO DAILY #90 caps 09/03/24 02/20/25 Rx release aspirin 81 mg capsule 81 mg PO DAILY 02/20/25 02/20/25 History atorvastatin 40 mg tablet (Lipitor) 10 mg PO QHS 02/20/25 02/20/25 History ezetimibe 10 mg tablet 10 mg PO QHS 02/20/25 02/20/25 History Allergies Allergy/AdvReac Type Severity Reaction Status Date / Time Sulfa (Sulfonamide Allergy Unknown Anaphylaxis Verified 02/20/25 12:27 Antibiotics) Vital Signs Vital Signs - 24 hr 02/20/25 21:25 02/20/25 22:00 02/20/25 22:00 Temperature 36.9 C Pulse Rate 72 66 68 Respiratory Rate 16 Blood Pressure 150/91 H Pulse Oximetry 99 Oxygen Delivery 02/20/25 22:41 02/20/25 23:20 02/21/25 00:00 Temperature 36.7 C Pulse Rate 71 Respiratory Rate 17 Blood Pressure 127/68 Pulse Oximetry 97 Oxygen Delivery Room Air Room Air 02/21/25 00:00 02/21/25 02:00 02/21/25 04:00 Temperature Pulse Rate 65 60 Respiratory Rate Blood Pressure Pulse Oximetry Oxygen Delivery Room Air 02/21/25 04:00 02/21/25 04:00 02/21/25 06:00 Temperature 36.9 C Pulse Rate 58 L 67 65 Respiratory Rate 16 Blood Pressure 142/73 H Pulse Oximetry 97 Oxygen Delivery 02/21/25 07:41 Temperature 36.7 C Pulse Rate 63 Respiratory Rate 16 Blood Pressure 118/62 Pulse Oximetry 96 Oxygen Delivery Exam Narrative: General: Alert oriented x3, no acute distress Neck: Supple, no JVD Chest: Bilaterally clear to auscultation, no rales or rhonchi Cardiac: S1, S2 +, regular rate, regular rhythm, no murmurs or rubs Extremities: No pedal edema, no skin rash Neurologic: Alert and oriented x3, no focal neurological deficits Results Labs and Meds 02/21/25 03:28 02/21/25 03:28 Lab results: Cardiac Enzymes 02/20/25 02/21/25 02/21/25 Range/Units 21:37 03:28 06:51 Troponin I 10.000 H* D 18.800 H* D 21.700 H* (0.000-0.034) ng/mL Coagulation 02/20/25 02/21/25 Range/Units 21:37 03:28 PT 14.7 (11.1-14.7) Seconds APTT 68.3 H 62.5 H (22.3-36.8) Seconds CBC 02/21/25 Range/Units 03:28 WBC 14.4 H (4.5-10.0) K/mm3 RBC 5.23 (4.2-5.4) M/mm3 Hgb 15.0 (12.0-15.0) g/dL Hct 45.7 (37.0-47.0) % Plt Count 233 (150-375) k/mm3 Lymph # (Auto) 2.12 (0.9-3.2) K/mm3 [place] # (Auto) 1.2 H (0.1-0.6) K/mm3 Eos # (Auto) 0.3 (0-0.3) K/mm3 Baso # (Auto) 0.1 (0.0-0.1) K/mm3 Comprehensive Metabolic Panel 02/21/25 Range/Units 03:28 Sodium 130 L (137-145) mmol/L Potassium 3.9 (3.4-5.0) mmol/L Chloride 101 (98-107) mmol/L Carbon Dioxide 22 (22-30) mmol/L BUN 14 D (7-17) mg/dL Creatinine 0.90 (0.7-1.0) mg/dL Glucose 142 H (65-110) mg/dL Calcium 9.6 (8.4-10.2) mg/dL Intake and Output 02/20/25 02/21/25 02/21/25 23:59 07:59 15:59 Intake Total 0.2 634.8 Balance 0.2 634.8 Intake: IV 0.2 34.8 Heparin Sod/D5w 100 Units/ml 25 0.2 34.8 ,000 units In 250 ml @ 700 UNITS/HR 7 mls/hr IV CONT .Q24H [facility] Rx#:[id number] Oral 600 Other: # Unmeasured Voids 4 # Urine Diapers 1 Number of Bowel Movements Today 2 Patient Weight 02/21/25 23:59 Weight 82.5 kg
[2025-02-21] MEDS: ASPIRIN 81 MG ENTERIC TABLET PO (09:03)
[2025-02-21] MEDS: PANTOPRAZOLE 40 MG TABLET PO (09:04)
[2025-02-21 09:58] LABS: Partial Thromboplastin Time 81.2 Seconds (22.3-36.8)
--- NOTE | 2025-02-21 11:50 | P.SEDATION_ITS ---
Moderate Sedation Note-Pt Data Patient Data Allergies Allergy/AdvReac Type Severity Reaction Status Date / Time Sulfa (Sulfonamide Allergy Unknown Anaphylaxis Verified 02/20/25 12:27 Antibiotics) Home Medications ?Medication ?Instructions ?Recorded ?Confirmed ?Type buspirone 15 mg tablet 15 mg PO .Q12HR 05/19/21 02/20/25 History niacin 500 mg tablet 500 mg PO QHS 05/19/21 02/20/25 History ascorbic acid (vitamin C) 500 mg 250 mg PO QHS 01/24/23 02/20/25 History tablet cholecalciferol (vitamin D3) 10 10 mcg PO .Q12HR 01/24/23 02/20/25 History mcg (400 unit) capsule omega 7-dzi-koy-fish oil 60 mg-90 1 cap PO DAILY 01/24/23 02/20/25 History mg-500 mg capsule (Fish Oil) duloxetine 60 mg capsule,delayed 60 mg PO .Q12HR 07/19/24 02/20/25 History release (Cymbalta) omeprazole 20 mg capsule,delayed 20 mg PO DAILY #90 caps 09/03/24 02/20/25 Rx release aspirin 81 mg capsule 81 mg PO DAILY 02/20/25 02/20/25 History atorvastatin 40 mg tablet (Lipitor) 10 mg PO QHS 02/20/25 02/20/25 History ezetimibe 10 mg tablet 10 mg PO QHS 02/20/25 02/20/25 History Current Medications: Active Medications Acetaminophen (Acetaminophen 325 Mg Tablet) 650 mg PO Q4H PRN PRN Reason: Mild Pain (1-3) or Fever Hydrocodone Bitart/Acetaminophen (Hydrocodone/Acetaminophen (*Crx) 5-325 Mg Tablet) 1 tab PO Q4H PRN PRN Reason: Moderate Pain (4-6) Aspirin (Aspirin 81 Mg Enteric Tablet) [facility] Last Admin: 02/21/25 09:03 Dose: 81 mg Atorvastatin Calcium (Atorvastatin 10 Mg Tablet) 10 mg PO QHS [facility] Last Admin: 02/21/25 00:26 Dose: 10 mg Buspirone HCl (Buspirone Hcl 5 Mg Tablet) 15 mg PO Q12HR [facility] Last Admin: 02/21/25 09:04 Dose: 15 mg Calcium Carbonate (Calcium Carbonate (Tums) 500 Mg (200 Mg Elemental)) 200 mg PO Q6H PRN PRN Reason: Indigestion Docusate Sodium (Docusate Sodium 100 Mg Capsule) 100 mg PO BID PRN PRN Reason: Constipation Duloxetine HCl (Duloxetine Hcl 60 Mg Capsule.Dr) 60 mg PO Q12HR [facility] Last Admin: 02/21/25 09:04 Dose: 60 mg Ezetimibe (Ezetimibe 10 Mg Tablet) 10 mg PO QHS [facility] Last Admin: 02/21/25 00:26 Dose: 10 mg Heparin Sodium (Porcine) (Heparin Sodium 5,000 Units/Ml Vial) 4,000 units IV PUSH PRN PRN PRN Reason: aPTT less than 55 seconds Heparin Sodium (Porcine) (Heparin Sodium 5,000 Units/Ml Vial) 2,500 units IV PUSH PRN PRN PRN Reason: aPTT 55 - 70 seconds Last Admin: 02/21/25 03:58 Dose: 2,500 units Heparin Sodium/Dextrose (Heparin Sodium/D5w 100 Units/Ml) 25,000 units in 250 mls @ 7 mls/hr IV CONT .Q24H [facility]; Protocol Last Titration: 02/21/25 11:03 Dose: 700 units/hr, 7 mls/hr Morphine Sulfate (Morphine Sulfate (*Crx) 2 Mg/Ml Inj) 2 mg IV PUSH Q4H PRN PRN Reason: Pain Rated 7-10 Nitroglycerin (Nitroglycerin Sl 0.4 Mg Tablet) 0.4 mg SUBLINGUAL Q5MIN PRN PRN Reason: Chest Pain Pantoprazole Sodium (Pantoprazole 40 Mg Tablet) 40 mg PO QAM [facility] Last Admin: 02/21/25 09:04 Dose: 40 mg Perflutren Lipid Microsphere (Perflutren Lipid Microspheres 1.5 Ml Vial Diluted To 10 Ml Total Volume) 0 ml IV PUSH ONCE PRN; Protocol PRN Reason: adequate visualization Stop: 02/24/25 09:10 Sedation/Anesthesia: No previous sedation/anesthesia problems (including family history). [facility] Past Medical History Medical History Bilateral calf pain Colon cancer screening IBS (irritable bowel syndrome) Crohn disease CAD (coronary artery disease) Anxiety Surgical History Surgical History H/O heart bypass surgery November 2010 Family History Family History Father Heart disease Mother Hypertension Heart disease Sibling Breast cancer Social History Social History Smoking status: Never smoker Second hand tobacco smoke exposure: No Alcohol intake: never Substance use: never Substance use type: does not use Lack of Transportation: No Lack of Food: Never True Current Housing: I Have Housing Concerned About Future Housing: No Difficulty Paying Gas/Electric Bills: No Difficulty Paying for Meds: No Currently Unemployed: No Education: High School Diploma/GED Difficulty w/ Childcare or Family Care: No Living arrangements: with family Occupation/Education: retired Gender identity (if verbalized by the patient): Female Sexual Orientation (if Verbalized by the Patient): Straight or Heterosexual Spiritual care concerns: No Agree to blood products: Yes Mod Sed Physical Exam Physical Exam Pre Procedural Exam: Normal: Lungs, Heart Rate and Heart Rhythm Hours since solid foods: 12 Hours since liquid intake: 12 Mallampati Classification: class III Internal Medicine - PN: Obj Da Vital Signs Vital Signs: Vital Signs - 24 hr 02/20/25 21:25 02/20/25 22:00 02/20/25 22:00 Temperature 36.9 C Pulse Rate 72 66 68 Respiratory Rate 16 Blood Pressure 150/91 H Pulse Oximetry 99 Oxygen Delivery 02/20/25 22:41 02/20/25 23:20 02/21/25 00:00 Temperature 36.7 C Pulse Rate 71 Respiratory Rate 17 Blood Pressure 127/68 Pulse Oximetry 97 Oxygen Delivery Room Air Room Air 02/21/25 00:00 02/21/25 02:00 02/21/25 04:00 Temperature Pulse Rate 65 60 Respiratory Rate Blood Pressure Pulse Oximetry Oxygen Delivery Room Air 02/21/25 04:00 02/21/25 04:00 02/21/25 06:00 Temperature 36.9 C Pulse Rate 58 L 67 65 Respiratory Rate 16 Blood Pressure 142/73 H Pulse Oximetry 97 Oxygen Delivery 02/21/25 07:41 02/21/25 08:00 02/21/25 08:00 Temperature 36.7 C Pulse Rate 63 69 Respiratory Rate 16 Blood Pressure 118/62 Pulse Oximetry 96 Oxygen Delivery Room Air 02/21/25 10:00 02/21/25 11:42 Temperature 37.0 C Pulse Rate 67 67 Respiratory Rate 20 Blood Pressure 120/67 Pulse Oximetry 96 Oxygen Delivery Intake/Output Intake/Output: Intake & Output 02/18/25 02/19/25 02/20/25 02/21/25 23:59 23:59 23:59 23:59 Intake Total 0.2 684.4 Balance 0.2 684.4 Meds/Results Medications: Active Medications Generic Name Dose Route Start Last Admin Trade Name Freq PRN Reason Stop Dose Admin Acetaminophen 650 mg 02/20/25 21:26 Acetaminophen 325 Mg Tablet PO Q4H PRN Mild Pain (1-3) or Fever Hydrocodone Bitart/Acetaminophen 1 tab 02/20/25 21:26 Hydrocodone/Acetaminophen (*Crx) 5-325 Mg Tablet PO Q4H PRN Moderate Pain (4-6) Aspirin 81 mg 02/21/25 09:00 02/21/25 09:03 Aspirin 81 Mg Enteric Tablet PO 81 mg QAM [facility] Administration Atorvastatin Calcium 10 mg 02/20/25 23:30 02/21/25 00:26 Atorvastatin 10 Mg Tablet PO 10 mg QHS [facility] Administration Buspirone HCl 15 mg 02/20/25 23:30 02/21/25 09:04 Buspirone Hcl 5 Mg Tablet PO 15 mg Q12HR [place] Administration Calcium Carbonate 200 mg 02/20/25 23:20 Calcium Carbonate (Tums) 500 Mg (200 Mg Elemental) PO Q6H PRN Indigestion Docusate Sodium 100 mg 02/20/25 21:26 Docusate Sodium 100 Mg Capsule PO BID PRN Constipation Duloxetine HCl 60 mg 02/20/25 23:30 02/21/25 09:04 Duloxetine Hcl 60 Mg Capsule.Dr PO 60 mg Q12HR [place] Administration Ezetimibe 10 mg 02/20/25 23:30 02/21/25 00:26 Ezetimibe 10 Mg Tablet PO 10 mg QHS [place] Administration Heparin Sodium (Porcine) 4,000 units 02/20/25 21:24 Heparin Sodium 5,000 Units/Ml Vial IV PUSH PRN PRN aPTT less than 55 seconds Heparin Sodium (Porcine) 2,500 units 02/20/25 21:24 02/21/25 03:58 Heparin Sodium 5,000 Units/Ml Vial IV PUSH 2,500 units PRN PRN Administration aPTT 55 - 70 seconds Heparin Sodium/Dextrose 25,000 units in 250 mls @ 7 mls/hr 02/20/25 22:20 02/21/25 11:03 Heparin Sodium/D5w 100 Units/Ml IV CONT 700 units/hr .Q24H [place] 7 mls/hr Titration Protocol 700 UNITS/HR Morphine Sulfate 2 mg 02/20/25 21:26 Morphine Sulfate (*Crx) 2 Mg/Ml Inj IV PUSH Q4H PRN Pain Rated 7-10 Nitroglycerin 0.4 mg 02/20/25 23:20 Nitroglycerin Sl 0.4 Mg Tablet SUBLINGUAL Q5MIN PRN Chest Pain Pantoprazole Sodium 40 mg 02/21/25 09:00 02/21/25 09:04 Pantoprazole 40 Mg Tablet PO 40 mg QAM [place] Administration Perflutren Lipid Microsphere 0 ml 02/21/25 09:09 Perflutren Lipid Microspheres 1.5 Ml Vial Diluted To 10 Ml Total Volume IV PUSH 02/24/25 09:10 ONCE PRN adequate visualization Protocol Labs 02/21/25 03:28 02/21/25 03:28 Labs: Laboratory Results - last 24 hr 02/20/25 02/21/25 02/21/25 21:37 03:28 06:51 WBC 14.4 H RBC 5.23 Hgb 15.0 Hct 45.7 MCV 87.4 MCH 28.7 MCHC 32.8 RDW 12.5 Plt Count 233 MPV 10.1 Immature Gran % (Auto) 0.3 Neut % (Auto) 74.5 H Lymph % (Auto) 14.7 L [place] % (Auto) 8.2 Eos % (Auto) 1.9 Baso % (Auto) 0.4 Lymph # (Auto) 2.12 [place] # (Auto) 1.2 H Eos # (Auto) 0.3 Baso # (Auto) 0.1 Abs Immat Gran (auto) 0.04 H Absolute Neuts (auto) 10.8 H Absolute Nucleated RBC 0.000 Nucleated RBC % 0.0 PT 14.7 INR 1.1 APTT 68.3 H 62.5 H Sodium 130 L Potassium 3.9 Chloride 101 Carbon Dioxide 22 Anion Gap 7 BUN 14 D Creatinine 0.90 Estim Creat Clear Calc 50 Estimated GFR > 60 Glucose 142 H Calcium 9.6 Troponin I 10.000 H* D 18.800 H* D 21.700 H* 02/21/25 09:25 WBC RBC Hgb Hct MCV MCH MCHC RDW Plt Count MPV Immature Gran % (Auto) Neut % (Auto) Lymph % (Auto) [place] % (Auto) Eos % (Auto) Baso % (Auto) Lymph # (Auto) [place] # (Auto) Eos # (Auto) Baso # (Auto) Abs Immat Gran (auto) Absolute Neuts (auto) Absolute Nucleated RBC Nucleated RBC % PT INR APTT 81.2 H Sodium Potassium Chloride Carbon Dioxide Anion Gap BUN Creatinine Estim Creat Clear Calc Estimated GFR Glucose Calcium Troponin I ASA Classification/Sedation ASA Classification/Sedation ASA Class: III Emergent: No Risks: Risks, benefits and alternatives explained and patient/family accepted plan for sedation. Patient re-evaluated immediately prior to sedation.
--- NOTE | 2025-02-21 14:10 | P.PNIM_ITS ---
Progress Note: A&P Assessment and Plan (1) Elevated troponin: Code(s): R79.89 - Other specified abnormal findings of blood chemistry Status: Acute Assessment and Plan: elevated troponins Cardiology consulted echo plan for cardiac cath today Heparin drip, monitor PTT level Continue heparin drip ,aspirin 81 mg daily , atorvastatin Nitro EKG p.r.n. (2) CAD (coronary artery disease): Code(s): I25.10 - Atherosclerotic heart disease of [place] coronary artery without angina pectoris Status: Acute Assessment and Plan: History of CABG in 2010 Continue Zetia and aspirin (3) Anxiety: Code(s): F41.9 - Anxiety disorder, unspecified Status: Acute Assessment and Plan: Continue buspirone and Cymbalta L (4) Heartburn: Code(s): R12 - Heartburn Status: Acute Assessment and Plan: Tums and omeprazole Plan abnormal CXR 2 well-circumscribed nodules within the right upper lobe measuring 8.4 and 6.7 mm, respectively, for which cross-sectional imaging (noncontrast enhanced CT examination of the chest) is recommended will get CT chest Subjective Date/time seen: 02/21/25 14:10 Interval history: per HPI: 74-year-old female with past medical history of a 4 vessel CABG in 2010, CAD, anxiety and hyperlipidemia presents the hospital with chest pain. She states that she woke up around 4:00 a.m. diaphoretic with indigestion and upper back pain.. She denies nausea vomiting or shortness of breath. She denies chest pain or tightness. Patient being transferred from [facility] to [facility] for higher level of care and cardiology consult. Lab work at the outside facility shows a hemoglobin of 14.3, BUN of 19, creatinine of 1.25 with baseline being around 1.1, glucose of 163, troponin of 0.101 and 0.231. EKG shows sinus rhythm with ST and T-wave abnormality. Patient was started on heparin drip at outside facility. 02/21/25 Patient was seen and examined at bedside. she is feeling better. her chest pain improved. has abnormal troponin. cardiology team on board . plan for cardiac cath today. Review of Systems Review of Systems: 12 systems were reviewed and are negativ e except for as per HPI. Exam Narrative: General: well appearing, appears stated age. HEENT: normocephalic, atraumatic. Mucous membranes moist. EOMI, PERRLA, bilateral sclera anicteric, no conjunctival injection. Neck supple without JVD, lymphadenopathy, or bruit. Respiratory: clear to ascultation bilaterally. No rales/rhonic/wheezes. Cardiovascular: Regular rate and rhythm, normal S1-S2 upon ascultation. No murmurs, rubs, or clicks. PMI is nondisplaced, capillary refill less than 3 second. Abdomen: Soft, round, no pulsatile masses, nondistended and nontender. No rebound, no guarding. No CVA tenderness, no hepatosplenomegaly. Bowel sounds present to all four quadrants. No high pitch or tinkling sounds, resonant to percussion. Extremities: No cyanosis, clubbing, or edema present. Pulses are palpable 2/2. Active ROM to all four extremities. Neuro: Alert and orientated x 4. PERRLA. Cranial nerves 2-12 intact without focal deficit. Skin: Warm, dry, and intact, without rash, erythema, or lesion. Psych: pleasant, cooperative, normal speech, normal affect, no hallucinations, no dysarthia Objective Data Vital Signs Vital Signs: Vital Signs - 24 hr 02/20/25 21:25 02/20/25 22:00 02/20/25 22:00 Temperature 98.4 F Pulse Rate 72 66 68 Pulse Rate [Bilateral Radial Palpation] Respiratory Rate 16 Blood Pressure 150/91 H Pulse Oximetry 99 Oxygen Delivery 02/20/25 22:41 02/20/25 23:20 02/21/25 00:00 Temperature 98.0 F Pulse Rate 71 Pulse Rate [Bilateral Radial Palpation] Respiratory Rate 17 Blood Pressure 127/68 Pulse Oximetry 97 Oxygen Delivery Room Air Room Air 02/21/25 00:00 02/21/25 02:00 02/21/25 04:00 Temperature Pulse Rate 65 60 Pulse Rate [Bilateral Radial Palpation] Respiratory Rate Blood Pressure Pulse Oximetry Oxygen Delivery Room Air 02/21/25 04:00 02/21/25 04:00 02/21/25 06:00 Temperature 98.4 F Pulse Rate 58 L 67 65 Pulse Rate [Bilateral Radial Palpation] Respiratory Rate 16 Blood Pressure 142/73 H Pulse Oximetry 97 Oxygen Delivery 02/21/25 07:41 02/21/25 08:00 02/21/25 08:00 Temperature 98.0 F Pulse Rate 63 69 Pulse Rate [Bilateral Radial Palpation] Respiratory Rate 16 Blood Pressure 118/62 Pulse Oximetry 96 Oxygen Delivery Room Air 02/21/25 10:00 02/21/25 11:42 02/21/25 12:00 Temperature 98.6 F Pulse Rate 67 67 71 Pulse Rate [Bilateral Radial Palpation] Respiratory Rate 20 Blood Pressure 120/67 Pulse Oximetry 96 Oxygen Delivery 02/21/25 12:00 02/21/25 13:45 02/21/25 13:45 Temperature Pulse Rate 91 Pulse Rate [Bilateral Radial Palpation] 91 Respiratory Rate 12 Blood Pressure 134/84 Pulse Oximetry 94 Oxygen Delivery Room Air Room Air 02/21/25 14:00 02/21/25 14:00 Temperature Pulse Rate 88 Pulse Rate [Bilateral Radial Palpation] 88 Respiratory Rate 15 Blood Pressure 129/86 Pulse Oximetry 95 Oxygen Delivery Room Air Intake/Output Intake/Output: Intake & Output 02/18/25 02/19/25 02/20/25 02/21/25 23:59 23:59 23:59 23:59 Intake Total 0.2 684.4 Balance 0.2 684.4 Meds/Results Medications: Active Medications Generic Name Dose Route Start Last Admin Trade Name Freq PRN Reason Stop Dose Admin Acetaminophen 650 mg 02/20/25 21:26 Acetaminophen 325 Mg Tablet PO Q4H PRN Mild Pain (1-3) or Fever Hydrocodone Bitart/Acetaminophen 1 tab 02/20/25 21:26 Hydrocodone/Acetaminophen (*Crx) 5-325 Mg Tablet PO Q4H PRN Moderate Pain (4-6) Aspirin 81 mg 02/21/25 09:00 02/21/25 09:03 Aspirin 81 Mg Enteric Tablet PO 81 mg QAM [place] Administration Atorvastatin Calcium 10 mg 02/20/25 23:30 02/21/25 00:26 Atorvastatin 10 Mg Tablet PO 10 mg QHS [place] Administration Buspirone HCl 15 mg 02/20/25 23:30 02/21/25 09:04 Buspirone Hcl 5 Mg Tablet PO 15 mg Q12HR [place] Administration Calcium Carbonate 200 mg 02/20/25 23:20 Calcium Carbonate (Tums) 500 Mg (200 Mg Elemental) PO Q6H PRN Indigestion Docusate Sodium 100 mg 02/20/25 21:26 Docusate Sodium 100 Mg Capsule PO BID PRN Constipation Duloxetine HCl 60 mg 02/20/25 23:30 02/21/25 09:04 Duloxetine Hcl 60 Mg Capsule.Dr PO 60 mg Q12HR [place] Administration Ezetimibe 10 mg 02/20/25 23:30 02/21/25 00:26 Ezetimibe 10 Mg Tablet PO 10 mg QHS [place] Administration Heparin Sodium (Porcine) 4,000 units 02/20/25 21:24 Heparin Sodium 5,000 Units/Ml Vial IV PUSH PRN PRN aPTT less than 55 seconds Heparin Sodium (Porcine) 2,500 units 02/20/25 21:24 02/21/25 03:58 Heparin Sodium 5,000 Units/Ml Vial IV PUSH 2,500 units PRN PRN Administration aPTT 55 - 70 seconds Heparin Sodium/Dextrose 25,000 units in 250 mls @ 7 mls/hr 02/20/25 22:20 02/21/25 11:03 Heparin Sodium/D5w 100 Units/Ml IV CONT 700 units/hr .Q24H [place] 7 mls/hr Titration Protocol 700 UNITS/HR Morphine Sulfate 2 mg 02/20/25 21:26 Morphine Sulfate (*Crx) 2 Mg/Ml Inj IV PUSH Q4H PRN Pain Rated 7-10 Nitroglycerin 0.4 mg 02/20/25 23:20 Nitroglycerin Sl 0.4 Mg Tablet SUBLINGUAL Q5MIN PRN Chest Pain Pantoprazole Sodium 40 mg 02/21/25 09:00 02/21/25 09:04 Pantoprazole 40 Mg Tablet PO 40 mg QAM [place] Administration Perflutren Lipid Microsphere 0 ml 02/21/25 09:09 Perflutren Lipid Microspheres 1.5 Ml Vial Diluted To 10 Ml Total Volume IV PUSH 02/24/25 09:10 ONCE PRN adequate visualization Protocol Labs Labs: Laboratory Results - last 24 hr 02/20/25 02/21/25 02/21/25 21:37 03:28 06:51 WBC 14.4 H RBC 5.23 Hgb 15.0 Hct 45.7 MCV 87.4 MCH 28.7 MCHC 32.8 RDW 12.5 Plt Count 233 MPV 10.1 Immature Gran % (Auto) 0.3 Neut % (Auto) 74.5 H Lymph % (Auto) 14.7 L [place] % (Auto) 8.2 Eos % (Auto) 1.9 Baso % (Auto) 0.4 Lymph # (Auto) 2.12 [place] # (Auto) 1.2 H Eos # (Auto) 0.3 Baso # (Auto) 0.1 Abs Immat Gran (auto) 0.04 H Absolute Neuts (auto) 10.8 H Absolute Nucleated RBC 0.000 Nucleated RBC % 0.0 PT 14.7 INR 1.1 APTT 68.3 H 62.5 H Sodium 130 L Potassium 3.9 Chloride 101 Carbon Dioxide 22 Anion Gap 7 BUN 14 D Creatinine 0.90 Estim Creat Clear Calc 50 Estimated GFR > 60 Glucose 142 H Calcium 9.6 Troponin I 10.000 H* D 18.800 H* D 21.700 H* 02/21/25 09:25 WBC RBC Hgb Hct MCV MCH MCHC RDW Plt Count MPV Immature Gran % (Auto) Neut % (Auto) Lymph % (Auto) [place] % (Auto) Eos % (Auto) Baso % (Auto) Lymph # (Auto) [place] # (Auto) Eos # (Auto) Baso # (Auto) Abs Immat Gran (auto) Absolute Neuts (auto) Absolute Nucleated RBC Nucleated RBC % PT INR APTT 81.2 H Sodium Potassium Chloride Carbon Dioxide Anion Gap BUN Creatinine Estim Creat Clear Calc Estimated GFR Glucose Calcium Troponin I Quality VTE Prophylaxis VTE prophylaxis: mechanical ordered and pharmacologic ordered
--- NOTE | 2025-02-21 17:54 | P.PCNCC_ITS ---
Cardiac Cath Procedure Note Date of procedure:: 02/22/25 Performing physician:: Kathi Castillo MD Indication:: CATHETERIZATION LABORATORY REPORT Procedure Date: 02/21/2025 Anesthesia: Versed and Fentanyl were ordered and given in my presence at 12:35 p.m., procedure ended at 1:31 p.m.. Supervision of nurse monitored moderate sedation with Versed and Fentanyl was provided for 56 minutes. Pre-op Diagnosis: NSTEMI Post-op Diagnosis: -NSTEMI -Severe obstructive multivessel CAD (BISHOP PAIUTE CORONARIES: 90% distal left main stenosis, LIGHTING FIXTURE INSTALLER of proximal LAD, 70% stenosis of proximal LCX followed by diffuse calcified disease of LCX and large OM, LIGHTING FIXTURE INSTALLER of ostial RCA with distal vessel filling from [id number] collaterals; GRAFTS: PERLA could not be engaged due to tortuosity of the Subclavian artery, SVG graft to OM occluded at the ostium, SVG graft to diagonal is patent with 50% stenosis in the mid vessel, SVG graft to RCA occluded at the ostium with copious thrombus extending from the ostium into the proximal portion of the graft-this is the culprit for patient's NSTEMI; No further intervention performed as patient is without chest pain, distal RCA is filling from L to R collaterals, and risks (distal embolization and no reflow) of PCI to this old degenerated vein graft with significant thrombus outweigh the benefits. Ruby RCA LIGHTING FIXTURE INSTALLER PCI may be considered if patient has symptoms Procedure(s): Left heart catheterization with coronary angiography Access Site: Right common femoral artery Closure: 6 [place] Angio-Seal Brief History and Clinical Indications: All risks, benefits and alternatives to left heart catheterization with or without percutaneous coronary intervention was discussed at length with the patient. Risk of complications including but not limited to bleeding, infection, arrhythmia, stroke, worsening kidney function, blood loss, groin hematoma, limb loss, emergency coronary artery bypass grafting, and even were discussed with the patient and all questions were answered. The patient understood and wished to proceed. Time out called, patient name, date of , medical record number, allergies, procedure performed, identify Ch[place] Boss, patient and staff member concurred with accurate data, procedure carried on. Findings: LEFT HEART CATHETERIZATION FINDINGS: 1. Left main: The left main could not be selectively engaged despite several attempts with 5 [place] FL 3.5, FL4, JR4 1 diagnostic catheters. Non selective angiography shows 80% stenosis of distal left main. 2. Left anterior descending: The proximal LAD is a LIGHTING FIXTURE INSTALLER. 3. Left circumflex: The left circumflex artery and the OM branches are diffusely diseased. 4. Right coronary artery: The proximal RCA is a LIGHTING FIXTURE INSTALLER. The distal vessel fills via [id number] collaterals. Bypass graft: PERLA to LAD: Could not not be selectively engaged due to severe tortuosity of subclavian artery (this is most likely patent as there is backfilling noted in the LAD when SVG to diagonal graft was imaged) SVG graft to OM: occluded at the ostium SVG graft to diagonal: patent with no significant angiographic disease SVG graft to RCA: occluded at the ostium with visible thrombus extending from the ostium into the proximal graft. This is the culprit for patient's presentation. Given SVG to RCA graft is 14 years old with significant amount of thrombus, patient is without chest pain, distal RCA is filling via [id number] collaterals further intervention to this graft was not performed as risk of PCI may outweigh benefits due to risk of distal embolization and no reflow. 5. Left ventricle: A. End-diastolic pressure 9 mmHg. B. LV gram deferred. C. No significant gradient across aortic valve on catheter pullback. 6. Opening AO pressure 105/76/91 and closing AO pressure 104/70 6/90 mm Hg. Patient without any chest pain. Description of Procedure: Informed consent signed and placed in the chart. Patient transferred to cathead operator room. Prepped and draped in usual sterile fashion. 2% lidocaine in right groin area. Micropuncture needle used to access right common femoral artery with Seldinger technique under fluoroscopic guidance. J wire advanced, micropuncture cannula placed. Right iliofemoral angiogram performed, access confirmed and micropuncture cannula exchanged for 6-FR sheath. ? Five [place] AR1 diagnostic catheter engaged Left Main Coronary Artery non selectively. Five [place] FR 4 diagnostic catheter engaged Right Coronary Artery. 5 [place] FR4 diagnostic catheter engaged SVG graft to the diagonal. Five [place] FR4 diagnostic catheter engaged SVG graft to the OM. Five [place] FR4 diagnostic catheter engaged SVG graft to the RCA. Five [place] IM catheter was advanced into the subclavian but failed to engage PERLA due to significant tortuosity of the left subclavian artery. Multiple orthogonal angiogram obtained and reviewed Five [place] FR4 diagnostic catheter crossed aortic valve to obtain LVEDP, LV angiogram deferred. Hemostasis was achieved by 6 [place] Angio-Seal. Assessment: -NSTEMI -Severe obstructive multivessel CAD (BISHOP PAIUTE CORONARIES: 90% distal left main stenosis, LIGHTING FIXTURE INSTALLER of proximal LAD, 70% stenosis of proximal LCX followed by diffuse calcified disease of LCX and large OM, LIGHTING FIXTURE INSTALLER of ostial RCA with distal vessel filling from [id number] collaterals; GRAFTS: PERLA could not be engaged due to tortuosity of the Subclavian artery, SVG graft to OM occluded at the ostium, SVG graft to diagonal is patent with 50% stenosis in the mid vessel, SVG graft to RCA occluded at the ostium with copious thrombus extending from the ostium into the proximal portion of the graft-this is the culprit for patient's NSTEMI; No further intervention performed as patient is without chest pain, distal RCA is filling from L to R collaterals, and risks (distal embolization and no reflow) of PCI to this old degenerated vein graft with significant thrombus outweigh the benefits. Ruby RCA LIGHTING FIXTURE INSTALLER PCI may be considered if patient has symptoms Post Operative Condition: Stable No significant blood loss Disposition: Floor Plan: No further intervention performed as patient is without chest pain, distal RCA is filling from L to R collaterals, and risks (distal embolization and no reflow) of PCI to this old degenerated vein graft with significant thrombus outweigh the benefits. Ruby RCA LIGHTING FIXTURE INSTALLER PCI may be considered if patient has symptoms. Recommend coronary CTA to evaluate PERLA to LAD patency. Consider PCI to [place] RCA and [place] distal LM and proximal LCX if patient has anginal symptoms on optimal medical therapy. The patient will be monitored in the recovery area. DAPT with aspirin and Plavix for 1 year followed by ASA indefinitely. Heparin drip for 24 hours. Continue atorvastatin. Continue aggressive medical therapy and risk factor modification. Bedrest for 2 hours. Check labs and renal function in a.m.. TTE.
[2025-02-21] MEDS: CLOPIDOGREL BISULFATE 300 MG TABLET PO (18:43)
[2025-02-21 22:03] LABS: Partial Thromboplastin Time 47.2 Seconds (22.3-36.8)
[2025-02-22] VITALS (9 sets, daily range): BP systolic 104–108; BP diastolic 62–81; PULSE 53–94; RESP 18–20; TEMP 36.7–36.9; O2SAT 96–100
--- NOTE | 2025-02-22 | ECHO_ITS ---
Patient Info Name: Joya Mota Age: 74 years : 1950 Gender: Female Ht: 64 in Wt: 181 lbs BSA: 1.95 m2 HR: 68 bpm BP: 108 / 62 mmHg Technical Quality: Good Exam Date: 02/22/2025 10:56 AM Patient Status: I Admit Date: 02/21/2025 Exam Type: CA echo doppler color flow Complete two-dimensional, color flow and Doppler transthoracic echocardiogram is performed. Staff Referring Physician: Lesvia Dalton Software Licensing Executive: Padmini Hughes Attending Provider: Lesvia Dalton Summary 1. Complete two-dimensional, color flow and Doppler transthoracic echocardiogram is performed. 2. Left ventricular chamber dimension is normal. 3. Left ventricular systolic function is normal, estimated at 60-65. 4. The left ventricular diastolic function is grade I diastolic dysfunction. 5. Right ventricular chamber dimension is normal. 6. Right ventricular systolic function is normal. 7. There is mild mitral valve regurgitation. Left Ventricle Left ventricular chamber dimension is normal. Left ventricular systolic function is normal, estimated at 60-65. There is no increased left ventricular wall thickness. Left ventricular septal wall motion is normal. The left ventricular diastolic function is grade I diastolic dysfunction. Right Ventricle Right ventricular chamber dimension is normal. Right ventricular systolic function is normal. Left Atria Left atrial chamber dimension is normal. Right Atria Right atrial chamber dimension is normal. Aortic Valve The aortic valve is trileaflet. There is no aortic valve sclerosis. There is no aortic valve stenosis. There is no aortic valve regurgitation. Pulmonic Valve The pulmonic valve is normal. There is no pulmonic valve stenosis. There is no pulmonic regurgitation. Mitral Valve The mitral valve has normal leaflets. There is no mitral valve stenosis. There is mild mitral valve regurgitation. Tricuspid Valve The tricuspid valve leaflets are normal. There is no significant tricuspid valve stenosis. There is no tricuspid valve regurgitation. Pericardium/Pleural The pericardium appears normal. There is no pericardial effusion. Inferior Vena Cava Normal inferior vena cava with >50% collapse upon inspiration consistent with normal right atrial pressure, 5 mmHg. Aorta The aortic root size at the sinus of Valsalva is normal. The prox ascending aorta size is normal. Left Ventricular Outflow Tract Name Value Normal LVOT 2D LVOT Diameter 2.0 cm LVOT Doppler LVOT Peak Velocity 103 cm/s LVOT Peak Gradient 4 mmHg LVOT Mean Gradient 2 mmHg LVOT VTI 22 cm LVOT Stroke Volume 66 ml LVOT CO 4.5 l/min LVOT CI 2.3 l/min/m2 Pulmonic Valve Name Value Normal RVOT Doppler RVOT Peak Velocity 79 cm/s RVOT Peak Gradient 3 mmHg PV Doppler PV Peak Velocity 111 cm/s PV Peak Gradient 5 mmHg Mitral Valve Name Value Normal MV Diastolic Function MV E Peak Velocity 64 cm/s MV A Peak Velocity 98 cm/s MV E/A 0.7 MV Decel Time (PW) 288 ms MV Annular TDI MV E/e' (Septal) 10.8 MV E/e' (Lateral) 7.9 MV E/e' (Average) 9.4 Tricuspid Valve Name Value Normal Estimated PAP/RSVP RA Pressure 5 mmHg <=5 TV Annular TDI TV Lateral Mary Lou s' Velocity 7.2 cm/s >=9.5 Aortic Valve Name Value Normal AV Doppler AV Peak Velocity 156 cm/s AV Peak Gradient 10 mmHg AV Area (Cont Eq Fredo) 2.0 cm2 AV DI (Fredo) 0.66 AV Regurgitation 2D LVOT Area 3.0 cm2 Ventricles Name Value Normal LV Dimensions 2D/MM IVS Diastolic Thickness (2D) 0.8 cm 0.6-1.0 LVID Diastole (2D) 4.5 cm 3.8-5.2 LVIW Diastolic Thickness (2D) 1.1 cm 0.6-0.9 LVID Systole (2D) 3.0 cm 2.2-3.5 LVOT Diameter 2.0 cm LV Mass (2D Cubed) 140.77 g 67.00-162.00 LV Mass Index (2D Cubed) 72 g/m2 43-95 Relative Wall Thickness (2D) 0.47 <=0.42 LV Fractional Shortening/Ejection Fraction 2D/MM LV Fractional Shortening (2D) 33 % 27-45 LV EF (2D Teichholz) 62 % LV Diastolic Volume (4C MOD) 116 ml LV EF (4C MOD) 58 % LV Diastolic Volume (2C MOD) 113 ml LV EF (2C MOD) 62 % LV Diastolic Volume (BP MOD) 115 ml 46-106 LV Diastolic Volume Index (BP MOD) 59 ml/m2 29-61 LV Systolic Volume (BP MOD) 48 ml 14-42 LV Systolic Volume Index (BP MOD) 24 ml/m2 8-24 LV EF (BP MOD) 58 % 54-74 LV Diastolic Length (4C) 7.6 cm LV Systolic Length (4C) 6.9 cm LV Stroke Volume (4C MOD) 67 ml Atria Name Value Normal LA Dimensions LA Volume (4C A-L) 37 ml LA Volume (BP A-L) 37 ml Report Signatures Amended by Joana Mathis on 02/28/2025 01:35 PM
[2025-02-22 04:23] LABS: Hematocrit 42.8 % (37.0-47.0); Hemoglobin 14.0 g/dL (12.0-15.0); Mean Corpuscular HGB Conc 32.7 g/dl (32-36); Mean Corpuscular Hemoglobin 28.1 pg (26-34); Mean Corpuscular Volume 85.8 fl (80-100); Platelet Count Result 218 k/mm3 (150-375); Red Blood Count 4.99 M/mm3 (4.2-5.4); White Blood Count 15.6 K/mm3 (4.5-10.0)
[2025-02-22 04:49] LABS: Anion Gap 6 mmol/L (4-12); Blood Urea Nitrogen 17 mg/dL (7-17); Calcium 9.3 mg/dL (8.4-10.2); Carbon Dioxide 22 mmol/L (22-30); Chloride 100 mmol/L (98-107); Estimated CRCL calculation 40 ml/min; Estimated Glomerular Filt Rate 47; Glucose 156 mg/dL (65-110); Potassium 4.0 mmol/L (3.4-5.0); Sodium 128 mmol/L (137-145)
[2025-02-22 06:45] LABS: Partial Thromboplastin Time 100.0 Seconds (22.3-36.8)
[2025-02-22] MEDS: DULoxetine HCL 60 MG CAPSULE.DR PO (08:18)
[2025-02-22] MEDS: CLOPIDOGREL BISULFATE 75 MG TABLET PO (08:18)
[2025-02-22] MEDS: PANTOPRAZOLE 40 MG TABLET PO (08:18)
[2025-02-22] MEDS: ASPIRIN 81 MG ENTERIC TABLET PO (08:18)
--- NOTE | 2025-02-22 13:11 | P.PNCA_ITS ---
Progress Note: A&P Assessment and Plan (1) NSTEMI (non-ST elevated myocardial infarction): Code(s): I21.4 - Non-ST elevation (NSTEMI) myocardial infarction Status: Acute (2) CAD (coronary artery disease): Code(s): I25.10 - Atherosclerotic heart disease of [place] coronary artery without angina pectoris Status: Acute Plan -NSTEMI status post cardiac catheterization on 02/21/2025 -CAD status post CABG x4 in 2010 Cath showed: 1. Severe obstructive multivessel CAD ([place] CORONARIES: 90% distal left main stenosis, [employer] of proximal LAD, 70% stenosis of proximal LCX followed by diffuse calcified disease of LCX and large OM, [employer] of ostial RCA with distal vessel filling from [id number] collaterals 2. GRAFTS: ----PERLA could not be engaged due to tortuosity of the Subclavian artery (this is most likely patent as competitive filling noted in LAD when SVG to diagonal was imaged) ----SVG graft to OM occluded at the ostium ----SVG graft to diagonal is patent with 50% stenosis in the mid vessel ----SVG graft to RCA occluded at the ostium with copious thrombus extending from the ostium into the proximal portion of the graft-this is the culprit for patient's NSTEMI 3. No further intervention performed as patient is without chest pain, distal RCA is filling from L to R collaterals, and risks (distal embolization and no reflow) of PCI to this old degenerated vein graft with significant thrombus outweigh the benefits. [place] RCA [employer] PCI may be considered if patient has symptoms -HLD Plan: No further intervention performed as patient is without chest pain, distal RCA is filling from L to R collaterals, and risks (distal embolization and no reflow) of PCI to this old degenerated vein graft with significant thrombus outweigh the benefits. [place] RCA [employer] PCI may be considered if patient has symptoms. Recommend coronary CTA to evaluate PERLA to LAD patency (could not be engaged due to tortuosity of subclavian artery). Consider PCI to [place] RCA and [place] distal LM and proximal LCX if patient has anginal symptoms on optimal medical therapy. DAPT with aspirin and Plavix for 1 year followed by ASA indefinitely. Stop heparin drip now. Continue atorvastatin. Continue aggressive medical therapy and risk factor modification. Bedrest for 2 hours. Check labs and renal function in a.m.. TTE. Check and replace electrolytes to keep potassium greater than 4 and magnesium greater than 2. Monitor on telemetry. Follow up with cardiology in 1 month. Subjective Date/time seen: 02/22/25 13:11 Interval history: Reason for encounter: NSTEMI Interval history: Review of Systems Cardiovascular: Comments: As per HPI Respiratory: Comments: As per HPI Exam Narrative: General: Alert oriented x3, no acute distress Neck: Supple, no JVD Chest: Bilaterally clear to auscultation, no rales or rhonchi Cardiac: S1, S2 +, regular rate, regular rhythm, no murmurs or rubs Extremities: Bilateral lower extremity edema 1+, no skin rash Neurologic: Alert and oriented x3, no focal neurological deficits Objective Data Vital Signs Vital Signs: Vital Signs - 24 hr 02/21/25 13:45 02/21/25 13:45 02/21/25 14:00 Temperature Pulse Rate 91 Pulse Rate [Bilateral Radial Palpation] 91 88 Respiratory Rate 12 Blood Pressure 134/84 Pulse Oximetry 94 Oxygen Delivery Room Air 02/21/25 14:00 02/21/25 14:15 02/21/25 14:15 Temperature Pulse Rate 88 86 Pulse Rate [Bilateral Radial Palpation] 86 Respiratory Rate 15 21 H Blood Pressure 129/86 120/86 Pulse Oximetry 95 94 Oxygen Delivery Room Air Room Air 02/21/25 14:30 02/21/25 14:30 02/21/25 14:45 Temperature Pulse Rate 83 Pulse Rate [Bilateral Radial Palpation] 83 71 Respiratory Rate 17 Blood Pressure 122/80 Pulse Oximetry 97 Oxygen Delivery Room Air 02/21/25 14:45 02/21/25 15:00 02/21/25 15:00 Temperature Pulse Rate 71 76 Pulse Rate [Bilateral Radial Palpation] 76 Respiratory Rate 20 16 Blood Pressure 122/81 121/89 Pulse Oximetry 98 97 Oxygen Delivery Room Air Room Air 02/21/25 16:00 02/21/25 16:00 02/21/25 16:00 Temperature 36.6 C Pulse Rate 76 76 Pulse Rate [Bilateral Radial Palpation] Respiratory Rate 16 Blood Pressure 112/70 Pulse Oximetry 96 Oxygen Delivery Room Air 02/21/25 16:30 02/21/25 18:00 02/21/25 19:46 Temperature 36.8 C Pulse Rate 86 76 85 Pulse Rate [Bilateral Radial Palpation] Respiratory Rate 16 16 Blood Pressure 114/60 Pulse Oximetry 98 98 Oxygen Delivery Room Air 02/21/25 19:48 02/21/25 20:00 02/21/25 23:36 Temperature 36.8 C Pulse Rate 85 79 79 Pulse Rate [Bilateral Radial Palpation] Respiratory Rate 18 Blood Pressure 109/68 Pulse Oximetry 97 Oxygen Delivery 02/21/25 23:45 02/21/25 23:52 02/22/25 03:50 Temperature 36.8 C Pulse Rate 73 84 74 Pulse Rate [Bilateral Radial Palpation] Respiratory Rate 18 18 Blood Pressure 100/59 L Pulse Oximetry 97 100 Oxygen Delivery Room Air 02/22/25 03:52 02/22/25 04:00 02/22/25 07:45 Temperature 36.8 C 36.9 C Pulse Rate 74 82 82 Pulse Rate [Bilateral Radial Palpation] Respiratory Rate 18 18 20 Blood Pressure 108/62 104/64 Pulse Oximetry 100 96 98 Oxygen Delivery Room Air 02/22/25 08:00 02/22/25 08:00 02/22/25 10:00 Temperature Pulse Rate 90 79 Pulse Rate [Bilateral Radial Palpation] Respiratory Rate Blood Pressure Pulse Oximetry Oxygen Delivery Room Air 02/22/25 11:40 02/22/25 12:00 02/22/25 12:00 Temperature 36.7 C Pulse Rate 94 87 Pulse Rate [Bilateral Radial Palpation] Respiratory Rate 20 Blood Pressure 106/81 Pulse Oximetry 99 Oxygen Delivery Room Air Intake/Output Intake/Output: Intake & Output 02/19/25 02/20/25 02/21/25 02/22/25 23:59 23:59 23:59 23:59 Intake Total 0.2 1002.3 1127.5 Output Total 400 Balance 0.2 602.3 1127.5 Meds/Results Medications: Active Medications Generic Name Dose Route Start Last Admin Trade Name Freq PRN Reason Stop Dose Admin Acetaminophen 650 mg 02/20/25 21:26 Acetaminophen 325 Mg Tablet PO Q4H PRN Mild Pain (1-3) or Fever Hydrocodone Bitart/Acetaminophen 1 tab 02/20/25 21:26 Hydrocodone/Acetaminophen (*Crx) 5-325 Mg Tablet PO Q4H PRN Moderate Pain (4-6) Aspirin 81 mg 02/21/25 09:00 02/22/25 08:18 Aspirin 81 Mg Enteric Tablet PO 81 mg QAM [place] Administration Atorvastatin Calcium 10 mg 02/20/25 23:30 02/21/25 22:06 Atorvastatin 10 Mg Tablet PO 10 mg QHS [place] Administration Buspirone HCl 15 mg 02/20/25 23:30 02/22/25 08:18 Buspirone Hcl 5 Mg Tablet PO 15 mg Q12HR [place] Administration Calcium Carbonate 200 mg 02/20/25 23:20 Calcium Carbonate (Tums) 500 Mg (200 Mg Elemental) PO Q6H PRN Indigestion Clopidogrel Bisulfate 75 mg 02/22/25 09:00 02/22/25 08:18 Clopidogrel Bisulfate 75 Mg Tablet PO 75 mg QAM [place] Administration Docusate Sodium 100 mg 02/20/25 21:26 Docusate Sodium 100 Mg Capsule PO BID PRN Constipation Duloxetine HCl 60 mg 02/20/25 23:30 02/22/25 08:18 Duloxetine Hcl 60 Mg Capsule.Dr PO 60 mg Q12HR [place] Administration Ezetimibe 10 mg 02/20/25 23:30 02/21/25 22:06 Ezetimibe 10 Mg Tablet PO 10 mg QHS [place] Administration Morphine Sulfate 2 mg 02/20/25 21:26 Morphine Sulfate (*Crx) 2 Mg/Ml Inj IV PUSH Q4H PRN Pain Rated 7-10 Nitroglycerin 0.4 mg 02/20/25 23:20 Nitroglycerin Sl 0.4 Mg Tablet SUBLINGUAL Q5MIN PRN Chest Pain Pantoprazole Sodium 40 mg 02/21/25 09:00 02/22/25 08:18 Pantoprazole 40 Mg Tablet PO 40 mg QAM [place] Administration Perflutren Lipid Microsphere 0 ml 02/21/25 09:09 Perflutren Lipid Microspheres 1.5 Ml Vial Diluted To 10 Ml Total Volume IV PUSH 02/24/25 09:10 ONCE PRN adequate visualization Protocol Radiology Results: ITS Impressions Chest CT 02/21/25 19:26 IMPRESSION: 6.5 x 6.9 mm part solid nodule within the superior segment of the right lower lobe for which follow-up as per Fleischner guidelines is recommended. Fleischner's guidelines recommends CT at 3-6 months to confirm persistence followed by annual CT for 5 years. Labs Labs: Laboratory Results - last 24 hr 07/02/22/25 02/22/25 21:45 03:38 06:23 WBC 15.6 H RBC 4.99 Hgb 14.0 Hct 42.8 MCV 85.8 MCH 28.1 MCHC 32.7 RDW 12.8 Plt Count 218 MPV 10.5 H APTT 47.2 H 100.0 H Sodium 128 L Potassium 4.0 Chloride 100 Carbon Dioxide 22 Anion Gap 6 BUN 17 Creatinine 1.12 H Estim Creat Clear Calc 40 Estimated GFR 47 L Glucose 156 H Calcium 9.3
--- NOTE | 2025-02-22 14:44 | P.PNIM_ITS ---
Progress Note: A&P Assessment and Plan (1) Elevated troponin: Code(s): R79.89 - Other specified abnormal findings of blood chemistry Status: Acute Assessment and Plan: elevated troponins Cardiology consulted Underwent cardiac catheterization.: Severe obstructive multivessel CAD ([place] CORONARIES: 90% distal left main stenosis, [employer] of proximal LAD, 70% stenosis of proximal LCX followed by diffuse calcified disease of LCX and large OM, [employer] of ostial RCA with distal vessel filling from [id number] collaterals Continue with conservative management. Continue with aspirin and Plavix for 1 year and then continue aspirin. Continue statin Echo pending Nitro EKG p.r.n. (2) CAD (coronary artery disease): Code(s): I25.10 - Atherosclerotic heart disease of [place] coronary artery without angina pectoris Status: Acute Assessment and Plan: History of CABG in 2010 Continue Zetia and aspirin (3) Anxiety: Code(s): F41.9 - Anxiety disorder, unspecified Status: Acute Assessment and Plan: Continue buspirone and Cymbalta (4) Heartburn: Code(s): R12 - Heartburn Status: Acute Assessment and Plan: Tums and omeprazole Plan abnormal CXR 2 well-circumscribed nodules within the right upper lobe measuring 8.4 and 6.7 mm, respectively, for which cross-sectional imaging (noncontrast enhanced CT examination of the chest) is recommended CT chest 6.5 x 6.9 mm part solid nodule within the superior segment of the right lower lobe for which follow-up as per Fleischner guidelines is recommended. Fleischner's guidelines recommends CT at 3-6 months to confirm persistence followed by annual CT for 5 years. Subjective Date/time seen: 02/22/25 14:44 Interval history: per HPI: 74-year-old female with past medical history of a 4 vessel CABG in 2011, CAD, anxiety and hyperlipidemia presents the hospital with chest pain. She states that she woke up around 4:00 a.m. diaphoretic with indigestion and upper back pain.. She denies nausea vomiting or shortness of breath. She denies chest pain or tightness. Patient being transferred from [facility] to [facility] for higher level of care and cardiology consult. Lab work at the outside facility shows a hemoglobin of 14.3, BUN of 19, creatinine of 1.25 with baseline being around 1.1, glucose of 163, troponin of 0.101 and 0.231. EKG shows sinus rhythm with ST and T-wave abnormality. Patient was started on heparin drip at outside facility. 02/21/25 Patient was seen and examined at bedside. she is feeling better. her chest pain improved. has abnormal troponin. cardiology team on board . underwent cardiac cath yesterday: Severe obstructive multivessel CAD ([place] CORONARIES: 90% distal left main stenosis, [employer] of proximal LAD, 70% stenosis of proximal LCX followed by diffuse calcified disease of LCX and large OM, [employer] of ostial RCA with distal vessel filling from [id number] collaterals. Continue with conservative management. Continue with aspirin and Plavix for 1 year and then continue aspirin. Continue statin Echo pending Review of Systems Review of Systems: 12 systems were reviewed and are negativ e except for as per HPI. Exam Narrative: General: well appearing, appears stated age. HEENT: normocephalic, atraumatic. Mucous membranes moist. EOMI, PERRLA, bilateral sclera anicteric, no conjunctival injection. Neck supple without JVD, lymphadenopathy, or bruit. Respiratory: clear to ascultation bilaterally. No rales/rhonic/wheezes. Cardiovascular: Regular rate and rhythm, normal S1-S2 upon ascultation. No murmurs, rubs, or clicks. PMI is nondisplaced, capillary refill less than 3 sec ond. Abdomen: Soft, round, no pulsatile masses, nondistended and nontender. No rebound, no guarding. No CVA tenderness, no hepatosplenomegaly. Bowel sounds present to all four quadrants. No high pitch or tinkling sounds, resonant to percussion. Extremities: No cyanosis, clubbing, or edema present. Pulses are palpable 2/2. Active ROM to all four extremities. Neuro: Alert and orientated x 4. PERRLA. Cranial nerves 2-12 intact without focal deficit. Skin: Warm, dry, and intact, without rash, erythema, or lesion. Psych: pleasant, cooperative, normal speech, normal affect, no hallucinations, no dysarthia Objective Data Vital Signs Vital Signs: Vital Signs - 24 hr 02/21/25 14:45 02/21/25 14:45 02/21/25 15:00 Temperature Pulse Rate 71 Pulse Rate [Bilateral Radial Palpation] 71 76 Respiratory Rate 20 Blood Pressure 122/81 Pulse Oximetry 98 Oxygen Delivery Room Air 02/21/25 15:00 02/21/25 16:00 02/21/25 16:00 Temperature 97.9 F Pulse Rate 76 76 Pulse Rate [Bilateral Radial Palpation] Respiratory Rate 16 16 Blood Pressure 121/89 112/70 Pulse Oximetry 97 96 Oxygen Delivery Room Air Room Air 02/21/25 16:00 02/21/25 16:30 02/21/25 18:00 Temperature 98.3 F Pulse Rate 76 86 76 Pulse Rate [Bilateral Radial Palpation] Respiratory Rate 16 Blood Pressure 114/60 Pulse Oximetry 98 Oxygen Delivery 02/21/25 19:46 02/21/25 19:48 02/21/25 20:00 Temperature 98.3 F Pulse Rate 85 85 79 Pulse Rate [Bilateral Radial Palpation] Respiratory Rate 16 18 Blood Pressure 109/68 Pulse Oximetry 98 97 Oxygen Delivery Room Air 02/21/25 23:36 02/21/25 23:45 02/21/25 23:52 Temperature 98.3 F Pulse Rate 79 73 84 Pulse Rate [Bilateral Radial Palpation] Respiratory Rate 18 18 Blood Pressure 100/59 L Pulse Oximetry 97 100 Oxygen Delivery Room Air 02/22/25 03:50 02/22/25 03:52 02/22/25 04:00 Temperature 98.3 F Pulse Rate 74 74 82 Pulse Rate [Bilateral Radial Palpation] Respiratory Rate 18 18 Blood Pressure 108/62 Pulse Oximetry 100 96 Oxygen Delivery Room Air 02/22/25 07:45 02/22/25 08:00 02/22/25 08:00 Temperature 98.4 F Pulse Rate 82 90 Pulse Rate [Bilateral Radial Palpation] Respiratory Rate 20 Blood Pressure 104/64 Pulse Oximetry 98 Oxygen Delivery Room Air 02/22/25 10:00 02/22/25 11:40 02/22/25 12:00 Temperature 98.0 F Pulse Rate 79 94 Pulse Rate [Bilateral Radial Palpation] Respiratory Rate 20 Blood Pressure 106/81 Pulse Oximetry 99 Oxygen Delivery Room Air 02/22/25 12:00 Temperature Pulse Rate 87 Pulse Rate [Bilateral Radial Palpation] Respiratory Rate Blood Pressure Pulse Oximetry Oxygen Delivery Intake/Output Intake/Output: Intake & Output 02/19/25 02/20/25 02/21/25 02/22/25 23:59 23:59 23:59 23:59 Intake Total 0.2 1002.3 1127.5 Output Total 400 Balance 0.2 602.3 1127.5 Meds/Results Medications: Active Medications Generic Name Dose Route Start Last Admin Trade Name Freq PRN Reason Stop Dose Admin Acetaminophen 650 mg 02/20/25 21:26 Acetaminophen 325 Mg Tablet PO Q4H PRN Mild Pain (1-3) or Fever Hydrocodone Bitart/Acetaminophen 1 tab 02/20/25 21:26 Hydrocodone/Acetaminophen (*Crx) 5-325 Mg Tablet PO Q4H PRN Moderate Pain (4-6) Aspirin 81 mg 02/21/25 09:00 02/22/25 08:18 Aspirin 81 Mg Enteric Tablet PO 81 mg QAM [place] Administration Atorvastatin Calcium 10 mg 02/20/25 23:30 02/21/25 22:06 Atorvastatin 10 Mg Tablet PO 10 mg QHS [place] Administration Buspirone HCl 15 mg 02/20/25 23:30 02/22/25 08:18 Buspirone Hcl 5 Mg Tablet PO 15 mg Q12HR [place] Administration Calcium Carbonate 200 mg 02/20/25 23:20 Calcium Carbonate (Tums) 500 Mg (200 Mg Elemental) PO Q6H PRN Indigestion Clopidogrel Bisulfate 75 mg 02/22/25 09:00 02/22/25 08:18 Clopidogrel Bisulfate 75 Mg Tablet PO 75 mg QAM [place] Administration Docusate Sodium 100 mg 02/20/25 21:26 Docusate Sodium 100 Mg Capsule PO BID PRN Constipation Duloxetine HCl 60 mg 02/20/25 23:30 02/22/25 08:18 Duloxetine Hcl 60 Mg Capsule.Dr PO 60 mg Q12HR [place] Administration Ezetimibe 10 mg 02/20/25 23:30 02/21/25 22:06 Ezetimibe 10 Mg Tablet PO 10 mg QHS [place] Administration Morphine Sulfate 2 mg 02/20/25 21:26 Morphine Sulfate (*Crx) 2 Mg/Ml Inj IV PUSH Q4H PRN Pain Rated 7-10 Nitroglycerin 0.4 mg 02/20/25 23:20 Nitroglycerin Sl 0.4 Mg Tablet SUBLINGUAL Q5MIN PRN Chest Pain Pantoprazole Sodium 40 mg 02/21/25 09:00 02/22/25 08:18 Pantoprazole 40 Mg Tablet PO 40 mg QAM [place] Administration Perflutren Lipid Microsphere 0 ml 02/21/25 09:09 Perflutren Lipid Microspheres 1.5 Ml Vial Diluted To 10 Ml Total Volume IV PUSH 02/24/25 09:10 ONCE PRN adequate visualization Protocol Radiology Results: ITS Impressions Chest CT 02/21/25 19:26 IMPRESSION: 6.5 x 6.9 mm part solid nodule within the superior segment of the right lower lobe for which follow-up as per Fleischner guidelines is recommended. Fleischner's guidelines recommends CT at 3-6 months to confirm persistence follo wed by annual CT for 5 years. Labs Labs: Laboratory Results - last 24 hr 02/21/25 02/22/25 02/22/25 21:45 03:38 06:23 WBC 15.6 H RBC 4.99 Hgb 14.0 Hct 42.8 MCV 85.8 MCH 28.1 MCHC 32.7 RDW 12.8 Plt Count 218 MPV 10.5 H APTT 47.2 H 100.0 H Sodium 128 L Potassium 4.0 Chloride 100 Carbon Dioxide 22 Anion Gap 6 BUN 17 Creatinine 1.12 H Estim Creat Clear Calc 40 Estimated GFR 47 L Glucose 156 H Calcium 9.3 Quality VTE Prophylaxis VTE prophylaxis: mechanical ordered and pharmacologic ordered
--- NOTE | 2025-02-22 15:25 | P.DS_ITS ---
DS: Admitting Diagnosis Discharge Date 02/22/25 Admitting Diagnosis CAD, NSTEMI DS: Discharge Diagnosis Discharge Diagnosis (1) Elevated troponin: Code(s): R79.89 - Other specified abnormal findings of blood chemistry Status: Acute Assessment and Plan: elevated troponins Cardiology consulted Underwent cardiac catheterization.: Severe obstructive multivessel CAD (SIOUX CORONARIES: 90% distal left main stenosis, THREAD SEPARATOR of proximal LAD, 70% stenosis of proximal LCX followed by diffuse calcified disease of LCX and large OM, THREAD SEPARATOR of ostial RCA with distal vessel filling from [id number] collaterals Continue with conservative management. Continue with aspirin and Plavix for 1 year and then continue aspirin. Continue statin Echo pending ,follow as outpatient Nitro EKG p.r.n. (2) CAD (coronary artery disease): Code(s): I25.10 - Atherosclerotic heart disease of [place] coronary artery without angina pectoris Status: Acute Assessment and Plan: History of CABG in 2010 Continue Zetia and aspirin (3) Anxiety: Code(s): F41.9 - Anxiety disorder, unspecified Status: Acute Assessment and Plan: Continue buspirone and Cymbalta (4) Heartburn: Code(s): R12 - Heartburn Status: Acute Assessment and Plan: Tums and omeprazole Plan abnormal CXR 2 well-circumscribed nodules within the right upper lobe measuring 8.4 and 6.7 mm, respectively, for which cross-sectional imaging (noncontrast enhanced CT examination of the chest) is recommended CT chest 6.5 x 6.9 mm part solid nodule within the superior segment of the right lower lobe for which follow-up as per Fleischner guidelines is recommended. Fleischner's guidelines recommends CT at 3-6 months to confirm persistence followed by annual CT for 5 years. DS: Summary Hospital Course Hospital Course: per HPI: 74-year-old female with past medical history of a 4 vessel CABG in 2010, CAD, anxiety and hyperlipidemia presents the hospital with chest pain. She states that she woke up around 4:00 a.m. diaphoretic with indigestion and upper back pain.. She denies nausea vomiting or shortness of breath. She denies chest pain or tightness. Patient being transferred from [facility] to [facility] for higher level of care and cardiology consult. Lab work at the outside facility shows a hemoglobin of 14.3, BUN of 19, creatinine of 1.25 with baseline being around 1.1, glucose of 163, troponin of 0.101 and 0.231. EKG shows sinus rhythm with ST and T-wave abnormality. Patient was started on heparin drip at outside facility. 02/21/25 Patient was seen and examined at bedside. she is feeling better. her chest pain improved. has abnormal troponin. cardiology team on board . underwent cardiac cath yesterday: Severe obstructive multivessel CAD (SIOUX CORONARIES: 90% distal left main stenosis, THREAD SEPARATOR of proximal LAD, 70% stenosis of proximal LCX followed by diffuse calcified disease of LCX and large OM, THREAD SEPARATOR of ostial RCA with distal vessel filling from [id number] collaterals. Continue with conservative management. Continue with aspirin and Plavix for 1 year and then continue aspirin. Continue statin. echo done, cardiology on board; patient can be discharged and follow with Echo report and cardiology clinic as outpatient. Status at Discharge Overall status at discharge: patient is progressing back to baseline Time Spent with Patient Time attestation: Total time spent providing and/or coordinating discharge services: Time spent: Greater than 30 minutes Exam Narrative: General: well appearing, appears stated age. HEENT: normocephalic, atraumatic. Mucous membranes moist. EOMI, PERRLA, bilateral sclera anicteric, no conjunctival injection. Neck supple without JVD, lymphadenopathy, or bruit. Respiratory: clear to ascultation bilaterally. No rales/rhonic/wheezes. Cardiovascular: Regular rate and rhythm, normal S1-S2 upon ascultation. No murmurs, rubs, or clicks. PMI is nondisplaced, capillary refill less than 3 second. Abdomen: Soft, round, no pulsatile masses, nondistended and nontender. No rebound, no guarding. No CVA tenderness, no hepatosplenomegaly. Bowel sounds present to all four quadrants. No high pitch or tinkling sounds, resonant to percussion. Extremities: No cyanosis, clubbing, or edema present. Pulses are palpable 2/2. Active ROM to all four extremities. Neuro: Alert and orientated x 4. PERRLA. Cranial nerves 2-12 intact without focal deficit. Skin: Warm, dry, and intact, without rash, erythema, or lesion. Psych: pleasant, cooperative, normal speech, normal affect, no hallucinations, no dysarthia DS: Data Data Completed and Pending Labs on day of discharge: Labs from last 24 hours 02/22/25 02/22/25 02/21/25 06:23 03:38 21:45 WBC 15.6 H RBC 4.99 Hgb 14.0 Hct 42.8 MCV 85.8 MCH 28.1 MCHC 32.7 RDW 12.8 Plt Count 218 MPV 10.5 H APTT 100.0 H 47.2 H Sodium 128 L Potassium 4.0 Chloride 100 Carbon Dioxide 22 Anion Gap 6 BUN 17 Creatinine 1.12 H Estim Creat Clear Calc 40 Estimated GFR 47 L Glucose 156 H Calcium 9.3 Discharge Plan Discharge Attending physician on discharge: Lesvia Dalton Consulting providers: Lesvia Dalton; Kathi Castillo Discharging Clinician: Lesvia Dalton Anticipated Discharge Date/Time: 02/22/25 15:16 Patient Disposition: Home Activity: as tolerated Diet: heart healthy Discharge Instructions: check your blood pressure and heart rate regularly and report to PCP. follow with cardiology clinic follow with echo report. follow with repeat Ct chest as outpatient. CT at 3-6 months to confirm persistence followed by annual CT for 5 years aspirin and Plavix for 1 year followed by ASA indefinitely. Patient Instructions: Antibiotic Form, Blood Thinners (GEN) Patient Language: Swazi Stand Alone Forms: General Discharge Information Follow-up/Referrals: Gerda Saenz MD [Primary Care Provider] - 1 Week Carlos Manuel Scott MD [Physician] - Call for Appointment Discharge Medications: New clopidogrel 75 mg Tablet 75 mg PO QAM Qty: 30 0RF Continued cholecalciferol (vitamin D3) 10 mcg (400 unit) capsule 10 mcg PO .Q12HR ascorbic acid (vitamin C) 500 mg tablet 250 mg PO QHS omega 6-gqj-war-fish oil [Fish Oil] 60-90-500 mg capsule 1 cap PO DAILY buspirone 15 mg tablet 15 mg PO .Q12HR niacin 500 mg tablet 500 mg PO QHS ezetimibe 10 mg tablet 10 mg PO QHS aspirin 81 mg capsule 81 mg PO DAILY atorvastatin [Lipitor] 40 mg tablet 10 mg PO QHS duloxetine [Cymbalta] 60 mg capsule,delayed release(DR/EC) 60 mg PO .Q12HR omeprazole 20 mg capsule,delayed release(DR/EC) 20 mg PO DAILY Qty: 90 1RF Date of admission: 02/22/25 15:06 Primary Care Provider: Gerda Saenz Admitting Provider: Bernadette De La Rosa Attending physician on admission: Bernadette De La Rosa Condition: Stable Quality VTE Prophylaxis VTE prophylaxis: mechanical ordered and pharmacologic ordered
== END 2025-02-22 15:45 | disposition home or self-care (01) ==
PROVIDERS: General Practice; Internal Medicine Cardiovascular Disease; Internal Medicine Interventional Cardiology; Nurse Practitioner Gerontology; Admitting Provider Family Medicine; PCP Family Medicine; Visit Provider Internal Medicine
PROC: 4A023N7 Measurement of Cardiac Sampling and Pressure, Left Heart, Percutaneous Approach (ICD-10-PCS; CPT 93459; principal; 2025-02-21 12:30)
DX: I21.4 Non-ST elevation (NSTEMI) myocardial infarction (principal); I25.10 Atherosclerotic heart disease of native coronary artery without angina pectoris; R79.89 Other specified abnormal findings of blood chemistry; R12 Heartburn; F41.9 Anxiety disorder, unspecified; E78.5 Hyperlipidemia, unspecified; K50.90 Crohn's disease, unspecified, without complications; Z95.1 Presence of aortocoronary bypass graft
CPT/HCPCS: 36415; 71250; 80048; 84484; 85025; 85027; 85610; 85730; 93005; 93306; 93459; A9270; C1760; C1769; C1887; C1894; G0269; G0378; J1644; J2003; J2250; J3010; J7040

== ENCOUNTER 2025-05-28 08:50 | Emergency (ER) | payer MEDICARE, SELFPAY ==
--- OUTSIDE RECORDS SUMMARY | 2025-05-27 05:00 | XMS_ITS ---
Author Organization [facility] Address [address] [place] [address] Care Team Providers Care Clerical Car Checker Name Role Phone Gerda Saenz MD Primary Care Provider Consuelo Jauregui Unavailable [phone] Allergies Allergen (clinical drug ingredient) Drug/Non Drug Allergy documented on EMR Reaction Allergy Type Onset Date Status Substance with sulfonamide structure and antibacterial mechanism of action (substance) SULFA (SULFONAMIDE ANTIBIOTICS) (uncoded) Unknown Allergy 12/12/2023 Active REASON FOR VISIT 6 month f/u, Follow up psychological reason Medications Medication SIG (Take, Route, Frequency, Duration) Notes Start Date End Date Status Fluticasone Propionate Diskus 50 MCG/ACT Aerosol Powder Breath Activated Inhalation *Reorder from Lydia for eRx and Interaction Alerts* 12/12/2023 Active methylPREDNISolone 4 MG Tablet Therapy Pack Oral 12/12/2023 Not-Taki ng Folic Acid 1 MG Tablet Oral 12/12/2023 Active Aspirin 81 MG Tablet Chewable Oral 12/12/2023 Active Risedronate Sodium 150 MG Tablet Oral 12/12/2023 Active Vitamin C *Pick strength-form from [facility] for eRX* 12/12/2023 Active MESALAMINE ER 500 MG CAPSULE,EXTENDED RELEASE *Reorder from [facility] for eRx and Interaction Alerts* 12/12/2023 Active Atorvastatin Calcium 40 MG Tablet Oral 12/12/2023 Active AFLURIA QUAD 6759-2590 60 MCG (15 MCG X 4)/0.5 ML INTRAMUSCULAR SUSP. *Reorder from [facility] for eRx and Interaction Alerts* 12/12/2023 Active Pentasa 500 MG Capsule Extended Release Oral 12/12/2023 Active Omeprazole 20 MG Capsule Delayed Release Oral 12/12/2023 Active busPIRone HCl 15 MG Tablet 1 tablet Oral Twice a day; Duration: 90 days 05/27/2025 Active DULoxetine HCl 60 MG Capsule Delayed Release Particles 1 capsule Oral twice a day; Duration: 90 days 05/27/2025 Active Social History Sex Assigned At : Social History Observation Description Sex Assigned At Female Encounters Encounter Location Date Provider Diagnosis [facility] [employer] [facility] [address] [facility] [address] [place] [address] 05/27/2025 Consuelo Caro Major depressive disorder, recurrent, mild F33.0 and Generalized anxiety disorder F41.1 Assessments Encounter Date Diagnosis (ICD Code) Assessment Notes Treatment Notes Treatment Clinical Notes Section Notes 05/27/2025 Major depressive disorder, recurrent, mild (ICD-10 - [...] twice a day SLUMS= 28 05/03/24 http_s://www.mario. org/Exgas-Xxiowd-L llness/Mental-Heal th-Conditions http_s://psychcent AmberWave.com/depression /ftq-ovylytymn-urx yztyx-ak-twzwjhahe n#treatments http__s://www.nimh .nih.gov/health/to pics/mental-health -medications http__s://www.mario .org/About-Mental- Illness/Treatments /Wlvlvy-Dekdeo-Qpe ications educated on all medications, benefits, side [...] potential neurotoxicity and interactions with prescribed medications. 05/27/2025 Generalized anxiety disorder (ICD-10 - F41.1) 1. [...] twice a day SLUMS= 28 05/03/24 http_s://www.mario. org/Cbtnu-Nkcvxh-O llness/Mental-Heal th-Conditions http_s://psychFitocracy.com/depression /wvc-ixucnndmy-lui yblow-cw-veqiaypcs n#treatments http__s://www.nimh .nih.gov/health/to pics/mental-health -medications http__s://www.mario .org/About-Mental- Illness/Treatments /Ykrzyz-Nskqsm-Pgy ications educated on all medications, benefits, side [...] potential neurotoxicity and interactions with prescribed medications. 05/27/2025 Other Notes: referral to the local chapter or national office of the Alzheimer's Association (9-471-240-253 0; http://www.alz .org), the Alzheimer's Disease Education and Referral Center (ADEDC) (4-556-379-438 0; http://www.joseph .nih.gov/Alzhe imers/), referral to the local chapter or national office of the Alzheimer's Association (9-898-489-161 0; http://www.alz .org), the Alzheimer's Disease Education and Referral Center (ADEDC) (6-618-328-517 0; http://www.joseph .nih.gov/Alzhe imers/), 1. Major depression- Cymbalta 60 mg twice a day patient reported nerve pain and in pain management also for back and leg pain- plan to see neurologist see PCP hx anxiety and nerve pain- flare ups disucss and educated on Cymbalta 60 mg twice a day pain management 2. Anxiety- Buspar 15 mg twice a day SLUMS= 28 05/03/24 http_s://www.mario. org/Avqlp-Cqevfr-J llness/Mental-Heal th-Conditions http_s://psychcent AmberWave.com/depression /kst-wpwxikwwd-mbn ehapu-db-dzpzrrbca n#treatments http__s://www.nimh .nih.gov/health/to pics/mental-health -medications http__s://www.mario .org/About-Mental- Illness/Treatments /Vmfzme-Bspuez-Wof ications educated on all medications, benefits, side [...] Stop Date Notes busPIRone HCl 15 MG Tablet 1 tablet Oral Twice a day; Duration: 90 days 05/27/2025 11/23/2025 DULoxetine HCl 60 MG Capsule Delayed Release Particles 1 capsule Oral twice a day; Duration: 90 days 05/27/2025 Treatment Notes Assessment Notes Other Notes: referral to the local chapter or national office of the Alzheimer's Association ( ; http://www.alz.org), the Alzheimer's Disease Education and Referral Center (ADEAR) ( ; http://www.joseph.nih.gov/Alzheimers/), referral to the local chapter or national office of the Alzheimer's Association ( ; http://www.alz.org), the Alzheimer's Disease Education and Referral Center (ADEAR) ( ; http://www.joseph.nih.gov/Alzheimers/), Next Appt Details Follow Up: 6 Months, Reason: medication follow up History and Physical Notes * HPI (History of Present Illness) Category Sub-Category Detail Notes Category Not es Depression screening PHQ-9 Little inte rest or pleasure in doing things: Not at all Feeling down, depressed, or hopeless: No t at all Trouble falling or staying asleep, or sl eeping too much: Several days Feeling tired or having little energy: S [...] some way: Not at all Total Score: 2 Interpretation: Minimal Depression Intervention Depression Screening Findings: N egative Follow-Up for Depression: Psychiatric fo llow-up Suicide Risk Assessment Performed: 05/27 denies SI/HI no plans or intent Functional Status Functional Status Assessment D ate of last completed Functional Status Assessment:: 05/27/2025 Fall Risk Assessment:: No falls in the p ast year Depression Screening MAYELIN-7 (2018 Edition) Feeling nervous, anxious, or on edge: Several days Follow up anxiety and depression chronic since last visit reported I had a mild heart attack last day January 2025 and I woke up and went to barn and then went to hospital I have some blockage and no surgery and have rx and cath, and increase cholestrol rx and blood thinner, and I feel really good and 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, 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, and I feel depression and anxieyt good daily and I saw neurologist Mel with flare up I get and he said it is lower back and effects nerves and anxiety, I am also to take antiinflammatory when flare up but not able to take r/t heart attack, I see him next month, I have not had it since 05/17, I am going to [facility] for week Tuesday, and Nov is book up already, and sleep good sometimes takes a while to fall asleep but good and I eat heart healthy food and low fat and motivation and interest good, concentration and focus good, energy good, no mood swings, rx good no s/e helps me stable, no psychosis no blanca, no SI/HI, I am taking Cymbalta 60 mg BID, no sad or no hopeless or helpless, no restless or fidgety I stay busy all day and reading in evening and movies or computer, not doing well with his CHF and schedule to see 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 port director 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 enjoys travel and horses [place] - see sister- breast cancer and mass chest area being checked [place] trips ETOH denies smoking denies drugs denies labs- PCP - monitor cholestrol Chrons age 41 and colonoscopy 07/16 and intestine clear, Neurologist 05/18 heart attack 02/15 HX Cymbalta and Buspar SLUMS= 28 05/03/24 SLUMS= 24 05/27/25 hx cold sore hx Chrons- improved colonoscopy [...] Total: (0 to 4) No Anx iety [place]-Suicide Severity Rating Scale Suicide Risk (CSRS-screener) in the past one month Have you wished you were or wished you could go to sleep and not wake up?: No Examination Category Sub-Category Detail Notes Category Not es Neurology Cognition Assessment Tools Used Total score SLUMS: Add Slums Score = 24 05/27/25 Psychiatry Appearance: well-groomed, we ll-nourished, appears stated [...] no Comprehension - Intellectual function: a verage Gait no impairment Neurological Dementia Caregiver education and support pr ovided: Yes Safety concern screening for dangerousness to self and environment risks provided:: Yes Safety concern mitigation recommendation provided:: Yes What action was taken to mitigate the risk?: Education provided Topics discussed for environmental risks:: Access to firearms or other weapons Topics discussed for dangerousness to self:: Medication misuse Screening Result:: Positive Functional Assessment Stevenson Index of ADL Score:: 6 1 point for independence, 0 for help 1 point for independence, 0 for help Physical Functioning Personal hygiene: i ncluding combing hair, brushing teeth, shaving, applying makeup, washing/drying face and hands (exclude baths and showers): Independent (1) Bathing: how client takes fu ll-body bath/shower or sponge bath (exclude washing of back and hair). Includes how each part of body is bathed: arms, upper and lower legs, chest, abdomen, perineal area. (code for most dependent episode in last 7 days): Independent Dressing upper body: how cli ent dresses and undresses (street clothes, underwear) above the waist, includes prostheses, orthotics, fasteners, pullovers, etc.: Independent Dressing lower body: how cli ent dresses and undresses (street clothes, underwear), from the waist down, includes prostheses, orthotics, belts, pants, skirts, shoes, and fasteners: Independent (1) Eating - Including taking in food by any method, including tube feedings: Independent Toilet use: including using the toilet room or commode, bedpan, urinal, transferring on/off toilet, cleaning self after toilet use or incontinent episode, changing pad, managing any special devices required (ostomy or catheter), and adjusting clothes.: Independent Transfer: including moving t o and between surfaces--to/from bed, chair, wheelchair, standing position (excludes to/from bath/toilet): Independent Transportation: No difficulty Continence:: Independent (1) Progress Notes * LESLIE GROSS RDOB:1950 (74 yo F)Acc No.[id number]:05/27/2025 Patient: LESLIE HIRSCH Provider: YULI KENNEDY :1950 A ge:74 Y S ex:Female Date:05/27/2025 Address:[address] [place], [place] [id number] Pcp:Gerda Saenz MD Subjective: * Chief Complaints: * 1 . 6 month f/u. 2. Follow up psychological reason. * HPI: D epression screening: PHQ-9 L ittle interest or pleasure in doing things?Not at all F eeling down, depressed, or hopeless N ot at all T rouble falling or staying asleep, or sleeping too much S everal days F eeling tired or having little energy S everal days P oor appetite or overeating N ot at all F eeling bad about yourself or that you are a failure, or have let yourself or your family down N ot at all T rouble concentrating on things, such as reading the newspaper or watching television N ot at all M oving or speaking so slowly that other people could have noticed; or the opposite, being so fidgety or restless that you have been moving around a lot more than usual N ot at all T houghts that you would be better off or of hurting yourself in some way N ot at all T otal Score 2 I nterpretation M inimal Depression Intervention D epression Screening Findings N egative F ollow-Up for Depression P sychiatric follow-up S uicide Risk Assessment Performed 1 07/27/2024 denies SI/HI no plans or intent D epression Screening: MAYELIN-7 (2018 Edition) F eeling nervous, anxious, or on edge S everal days N ot being able to stop or control worrying?Not at all W orrying too much about different things N ot at all T rouble relaxing N ot at all B eing so restless that it is hard to sit still N ot at all B ecoming easily annoyed or irritable S everal F eeling afraid as if something awful might happen N ot at all T otal MAYELIN-7 Score 2 I nterpretation of Total ( 0 to 4) No Anxiety Follow up anxiety and depression chronic since last visit reported I had a mild heart attack last day January 2025 and I woke up and went to barn and then went to hospital I have some blockage and no surgery and have rx and cath, and increase cholestrol rx and blood thinner, and I feel really good and 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, 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, and I feel depression and anxieyt good daily and I saw neurologist Mel with flare up I get and he said it is lower back and effects nerves and anxiety, I am also to take antiinflammatory when flare up but not able to take r/t heart attack, I see him next month, I have not had it since 05/17, I am going to [facility] for week Tuesday, and Nov is book up already, and sleep good sometimes takes a while to fall asleep but good and I eat heart healthy food and low fat and motivation and interest good, concentration and focus good, energy good, no mood swings, rx good no s/e helps me stable, no psychosis no blanca, no SI/HI, I am taking Cymbalta 60 mg BID, n o sad or no hopeless or helpless, no restless or fidgety I stay busy all day and reading in evening and movies or computer, not doing well with his CHF and 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 [place]-Suicide Severity Rating Scale: Suicide Risk (CSRS-screener) i n the past one month Have you wished you were or wished you could go to sleep and not wake up? N o F unctional Status: Functional Status Assessment D ate of last completed Functional Status Assessment: 07/27/2024 F all Risk Assessment: N o falls in the past year H istory of Presenting Problem: [facility] Slums testing [facility] Dementia screen positive for safety concern Functional status reviewed. * ROS: reports n o shortness of breath, no chest pain, no palpitations, no known heart murmur, and no ankle swelling; no cough. hx heart attack 02/21/25 r eports no abdominal pain, no nausea, no vomiting, no constipation, normal appetite, no diarrhea, and no GERD; . r eports no headaches and no migraines but reports no loss of consciousness, no weakness, no numbness, no seizures, no dizziness, no tremor, no gait dysfunction, and no paralysis. r eports no sleep disturbances, no restless sleep, reports mild depression, feeling safe in a relationship, no alcohol abuse, mild anxiety, no hallucinations, no suicidal thoughts, no mood swings, no agitation, r eports f atigue. reports no fever, no significant weight gain, and no significant weight loss. r eports wears glasses reports no incontinence, no difficulty urinating, and no increased frequency. r eports no muscle aches, no muscle weakness, arthralgias/joint pain, back pain, leg pain, no swelling in the extremities, no neck pain, and no difficulty walking hx reported nerve pain and has it in vaginal area when have increase with anxiety and burning and irritation - Cymbalta has helped- see Neurologist about nerve pain in pain management - leg, back pain. * Medical History: * Medications: T aking DULoxetine HCl 60 MG Capsule Delayed Release Particles 1 capsule Oral twice a day , Taking busPIRone HCl 15 MG Tablet 1 tablet Oral Twice a day , Taking Folic Acid 1 MG Tablet Oral , Taking Fluticasone Propionate Diskus 50 MCG/ACT Aerosol Powder Breath Activated Inhalation , Notes to Pharmacist: *Reorder from Lydia for eRx and Interaction Alerts*, Taking Omeprazole 20 MG Capsule Delayed Release Oral , Taking Pentasa 500 MG Capsule Extended Release Oral , Taking AFLURIA QUAD 5316-3820 60 MCG (15 MCG X 4)/0.5 ML INTRAMUSCULAR SUSP. , Notes to Pharmacist: *Reorder from [facility] for eRx and Interaction Alerts*, Taking Aspirin 81 MG Tablet Chewable Oral , Taking Atorvastatin Calcium 40 MG Tablet Oral , Taking MESALAMINE ER 500 MG CAPSULE,EXTENDED RELEASE , Notes to Pharmacist: *Reorder from [facility] for eRx and Interaction Alerts*, Taking Vitamin C , Notes to Pharmacist: *Pick strength-form from [facility] for eRX*, Taking Risedronate Sodium 150 MG Tablet Oral , Not-Taking methylPREDNISolone 4 MG Tablet Therapy Pack Oral , Discontinued busPIRone HCl 15 MG Tablet 1 tablet Oral Twice a day , Discontinued DULoxetine HCl 60 MG Capsule Delayed Release Particles 1 capsule Oral twice a day , Medication List reviewed and reconciled with the patient * Allergies: S ULFA (SULFONAMIDE ANTIBIOTICS): Allergy - Onset Date 12/12/2023. Allergies Verified. Objective: * Examination: P sychiatry: Appearance: w ell-groomed, well-nourished, appears stated age. Abnormal body movements: n one. Affect / mood: a ppropriate, full range. Aggression: l ow. Anger control: g ood. Attention: g ood. Attitude: c ooperative. Gait n o impairment. Homicidal ideation: n one. Suicidal ideation: n [...] content: a ppropriate. Thought process: i ntact. N eurology: Cognition Assessment Tools Used ?Neurological: ?Dementia? Caregiver education and support provided Y jack ? Safety concern aamir velez for dangerousness to self and environment risks provided: Y es ? Safety concern mitig ation recommendation provided: Y es ? What action was take n to mitigate the risk? E ducation provided ? Topics discussed for environmental risks: A ccess to firearms or other weapons ? Topics discussed for dangerousness to self: M edication misuse ? Screening Result: P ositive ?Functional Assessment: ?Stevenson Index of ADL? Score: 6 1 point for independence, 0 for help ?Physical Functioning? Personal hygiene: in cluding combing hair, brushing teeth, shaving, applying makeup, washing/drying face and hands (exclude baths and showers) I niviapendent (1) ? Bathing: how client takes full-body bath/shower or sponge bath (exclude washing of back and hair). Includes how each part of body is bathed: arms, upper and lower legs, chest, abdomen, perineal area. (code for most dependent episode in last 7 days) I ndependent (1) ? Dressing upper body: how client dresses and undresses (street clothes, underwear) above the waist, includes prostheses, orthotics, fasteners, pullovers, etc. I ndependent (1) ? Dressing lower body: how client dresses and undresses (street clothes, underwear), from the waist down, includes prostheses, orthotics, belts, pants, skirts, shoes, and fasteners I ndependent (1) ? Eating - Including t aking in food by any method, including tube feedings I ndependent (1) ? Toilet use: includin g using the toilet room or commode, bedpan, urinal, transferring on/off toilet, cleaning self after toilet use or incontinent episode, changing pad, managing any special devices required (ostomy or catheter), and adjusting clothes. I ndependent (1) ? Transfer: including moving to and between surfaces--to/from bed, chair, wheelchair, standing position (excludes to/from bath/toilet) I ndependent (1) ? Transportation N o difficulty ? Continence: I ndependent (1) ???1 point for independence, 0 for help. Assessment: * Assessment: 1. M ajor depressive disorder, recurrent, mild - F33.0 (Primary) 2 . G eneralized anxiety disorder - F41.1 1. Major depression-Cymbalta 60 mg twice a day patient reported nerve pain and in pain management also for back and leg pain- plan to see neurologist see PCP hx anxiety and nerve pain- flare ups disucss and educated onCymbalta 60 mg twice a day pain management 2. Anxiety-Buspar 15 mg twice a day SLUMS= 28 05/03/24 http_s://www.mario.org/Rovml-Slfrtg-Grrtnni/Gofzyw-Woigzh-Gieinkkowc http_s://psychcentral.com/depression/qmm-mrfemvyfe-gikiltoh-of-depression#treatm ents http__s://www.nimh.nih.gov/health/topics/ewveiy-qsruva-shjdxeysoxr http__s://www.mario.org/Kmsgv-Qhvfae-Ymqueqv/Treatments/Nucweh-Lbdcux-Lnwcgsnqlor educated on all medications, benefits, side effects [...] day, 90 days, 180, Refills 1. ? 3. O thers Notes: Notes: referral to the local chapter or national office of the Alzheimer's Association ( ; h ttp://www.alz.org), the Alzheimer's Disease Education and Referral Center (ADEDC) ( ; ttp://www.joseph.nih.gov/Alzheimers/), r charlial to the local [facility] or national office of the Alzheimer's Association ( ;http://www.alz.org), the Alzheimer's Disease Education and Referral Center (ADEDC) ( ;http://www.joseph.nih.gov/Alzh nataliia/), * Procedure Codes: 1 036F TOBACCO NON-USER, G2211 VISIT COMPLEXITY INHERENT TO ONGOING CARE RELATED TO A PATIENT'S SINGLE, SERIOUS CONDITION OR A COMPLEX CONDITION, G9922 Sfty cncrns scrn nd mildred recs, G9916 Funct status past 12 months, 4322F CRGVR PROV W/ ED ADDL RSRCS * Follow Up: 6 Months (Reason: medication follow up) Billing Information: * Visit Code: 25805 OFFICE OUTPATIENT VISIT 25 MINUTES DETAILED HISTORY AND EXAM/MODERATE MEDICAL DECISION MAKING. * Procedure Codes: 1036F TOBACCO NON-USER. G2211 VISIT COMPLEXITY INHERENT TO ONGOING CARE RELATED TO A PATIENT'S SINGLE, SERIOUS CONDITION OR A COMPLEX CONDITION. G9922 Sfty cncrns scrn nd [facility] recs. G9916 Funct status past 12 months. 4322F CRGVR PROV W/ ED ADDL RSRCS. * E MANAGER Sign off status: Completed true * Provider: YULI KENNEDY Date: 07/27/2024 Generated for Mukesh joseph/Kayli/Dominikitting on: 07/28/2024 09:40 AM NURSE MANAGER
[2025-05-28] VITALS (28 sets, daily range): BP systolic 141–168; BP diastolic 75–110; PULSE 67–94; RESP 10–19; TEMP 36.6; O2SAT 96–100
--- NOTE | ~2025-05-28 | XR_ITS ---
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 Technique: 2 views obtained. Findings: Mild pulmonary venous congestion. No pneumothorax. Mild cardiomegaly. Mediastinal and hilar contours are within normal limits. Post sternotomy. Impression: Mild CHF Reviewed, dictated and finalized at location P. NEERING MODEL MAKER Impression: Mild CHF
--- NOTE | 2025-05-28 08:56 | ECG_ITS ---
Test Date: 2025-05-28 09:01:04 Measurements Intervals Ellis Rate: 91 P: 48 MI: 170 QRS: 98 QRSD: 100 T: -15 QT: 389 QTc: 481 Interpretive Statements SINUS RHYTHM WITH OCCASIONAL VENTRICULAR PREMATURE COMPLEXES BORDERLINE RIGHT AXIS DEVIATION [QRS AXIS > 90] VOLTAGE CRITERIA FOR LVH [MEETS CRITERIA IN ONE OF: R(aVL), S(V1), R(V5), R(V5/V6)+S(V1)] INFERIOR MYOCARDIAL INFARCTION , OF INDETERMINATE AGE [40+ ms Q WAVE AND/OR ST/T ABNORMALITY IN II/aVF] MODERATE T-WAVE ABNORMALITY, CONSIDER LATERAL ISCHEMIA [-0.1+ mV T-WAVE IN I/aVL/V5/V6] Electronically Signed On 05-28-2025 21:29:35 SUPPLIER QUALITY ENGINEER by Shashi Colon M.D.
--- NOTE | 2025-05-28 08:56 | ED.CHESTPAIN ---
HPI - Chest Pain General Chief Complaint: Dizziness Stated Complaint: clammy; dizzy Time Seen by Provider: 05/28/25 08:56 Source: patient Mode of arrival: ambulatory Limitations: no limitations History of Present Illness HPI narrative: Patient is a 74-year-old female with open heart surgery 15 years ago and a mild heart attack 4 months ago having similar symptoms of cold sweat and vertigo type changes that occurred with her recent SC except there is no chest pain at this time. No particular chest pain or shortness of breath at this time. Patient is just having the vertigo and a cold sweat which did occur with the heart attack. No nausea vomiting or diarrhea. No abdominal pain. The symptoms have resolved at this time. She was worried about correlation between recent MRI and/or labyrinthitis of the left ear. 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 Onset (ago): day(s) (1) Timing of current episode: episodic (Vertigo/cold sweat) Prior episodes: Yes Onset: during rest Pain location: other (No chest pain) Pain radiation: none Severity: similar to previous episodes (Vertigo/cold sweat is similar to prior SC) Pain scale (0-10): 0 Quality: similar to prior SC (No active chest pain or chest pain today; her vertigo and cold sweats are similar to prior SC) Relieving factors: nothing Exacerbating factors: nothing Context: other (Patient awoke with vertigo type symptoms with a cold sweat this morning but no chest pain or shortness of breath) Associated symptoms: other (None) Treatment prior to arrival: none (Home medications taken today) Risk Factors Coronary artery disease risk factors: hyperlipidemia Thoracic aortic dissection risk factors: none Related Data On Oral Contraceptives: No Home Medications ?Medication ?Instructions ?Recorded ?Confirmed ?Last Taken ?Type buspirone 15 mg tablet 15 mg PO .Q12HR 05/19/21 02/26/25 02/20/25 History niacin 500 mg tablet 500 mg PO QHS 05/19/21 02/26/25 02/19/25 History ascorbic acid (vitamin C) 500 mg 250 mg PO QHS 01/24/23 02/26/25 02/20/25 History tablet cholecalciferol (vitamin D3) 10 10 mcg PO .Q12HR 01/24/23 02/26/25 02/20/25 History mcg (400 unit) capsule omega 5-gws-smu-fish oil 60 mg-90 1 cap PO DAILY 01/24/23 02/26/25 02/20/25 History mg-500 mg capsule (Fish Oil) duloxetine 60 mg capsule,delayed 60 mg PO .Q12HR 07/19/24 02/26/25 02/20/25 History release (Cymbalta) aspirin 81 mg capsule 81 mg PO DAILY 02/20/25 02/26/25 02/20/25 History ezetimibe 10 mg tablet 10 mg PO QHS 02/20/25 02/26/25 02/19/25 History Allergies Allergy/AdvReac Type Severity Reaction Status Date / Time Sulfa (Sulfonamide Allergy Unknown Anaphylaxis Verified 05/28/25 08:56 Antibiotics) NSAIDS (Non-Steroidal AdvReac Mild Other Verified 05/28/25 08:56 Anti-Inflamma Review of Systems Review of Systems: All systems reviewed & are unremarkable except as noted in HPI and below Constitutional: Constitutional: Reports no additional constitutional complaints Eyes: Eyes: Reports no additional eye complaints ENT: Reports system reviewed and no additional complaints, except as documented Cardiovascular: Cardiovascular: Reports no additional cardiovascular complaints Respiratory: Respiratory: Reports no additional respiratory complaints Gastrointestinal: Gastrointestinal: Reports no additional gastrointestinal complaints Genitourinary: Genitourinary: Reports no additional female genitourinary complaints Musculoskeletal: Musculoskeletal: Reports no additional musculoskeletal complaints Integumentary/Breasts: Skin/Breast: Reports system reviewed and no additional complaints, except as docu Neurologic: Reports system reviewed and no additional complaints, except as documented Psychiatric: Psychiatric: Reports no additional psychiatric complaints Endocrine: Endocrine: Reports no additional endocrine complaints Hematologic/Lymphatic: Hematologic/Lymphatic: Reports no additional hematologic/lymphatic complaints Allergic/Immunologic: Allergic/Immunologic: Reports no additional allergic/immunologic complaints [facility] Past Medical History Medical History Bilateral calf pain Colon cancer screening IBS (irritable bowel syndrome) Crohn disease CAD (coronary artery disease) Anxiety Surgical History Surgical History H/O heart bypass surgery November 2010 Family History Family History Father Heart disease Mother Hypertension Heart disease Sibling Breast cancer Social History Social History Smoking status: Never smoker Second hand tobacco smoke exposure: No Alcohol intake: never Substance use: never Substance use type: does not use Lack of Transportation: No Lack of Food: Never True Current Housing: I Have Housing Concerned About Future Housing: No Difficulty Paying Gas/Electric Bills: No Difficulty Paying for Meds: No Currently Unemployed: No Education: High School Diploma/GED Difficulty w/ Childcare or Family Care: No Living arrangements: with family Occupation/Education: retired Gender identity (if verbalized by the patient): Female Sexual Orientation (if Verbalized by the Patient): Straight or Heterosexual Spiritual care concerns: No Agree to blood products: Yes Exam Const: General: healthy appearing Nutritional Appearance: well nourished Orientation/consciousness: patient oriented x3 HENMT: Head: normal to inspection Ears: external ears normal Face/Nose/Sinus: Normal external nose present Eyes: Conjunctivae: conjunctivae normal Pupils: Equal, round and reactive pupils present EOM: EOMs intact bilaterally Neck: Neck: normal visual inspection, no lymphadenopathy and no meningeal signs Chest: Chest palpation & inspection: normal inspection of the chest and normal inspection of the chest Resp: Effort & Inspection: normal respiratory effort, not labored, no retractions and not tachypneic Auscultation: clear to auscultation bilaterally, no crackles, no rales and no rhonchi Cardio: Rate: regular rate Rhythm: regular rhythm Heart sounds: no murmurs GI: Inspection: non-distended GI Palp: Yes Soft to palpation and No Tenderness to palpation present (GI) Auscultation: normal bowel sounds : General: Yes bladder normal to palpation Back/Spine/Pelvis: Back: no CVA tenderness Skin: General skin exam: normal color Rashes: no rashes Wounds: no wounds Neuro: General: patient oriented x3, moves all extremities and no meningeal signs Extrem: General: normal to inspection, no clubbing, cyanosis or edema and no pedal edema Psych: Mental Status: mental status grossly normal Affect: normal affect Attitude: cooperative Course Vital Signs Vital signs: Vital Signs Temperature 36.6 C 05/28/25 08:50 Pulse Rate 94 05/28/25 08:50 Respiratory Rate 16 05/28/25 08:50 Blood Pressure 165/110 H 05/28/25 08:50 Pulse Oximetry 98 05/28/25 08:50 Oxygen Delivery Room Air 05/28/25 08:50 Temperature 36.6 C 05/28/25 08:50 Pulse Rate 67 05/28/25 11:45 Respiratory Rate 12 05/28/25 11:45 Blood Pressure 163/84 H 05/28/25 11:33 Pulse Oximetry 97 05/28/25 11:45 Oxygen Delivery Room Air 05/28/25 08:50 MDM - Chest Pain MDM Narrative Medical decision making narrative: Patient is a 74-year-old female with vertigo/cold sweats this morning has resolved at this time but similar to prior SC. No chest pain or shortness of breath. We will do a cardiac workup for reassurance. Otherwise this sounds to be a vertigo or labyrinthitis. Initial workup was negative for acute process and we will recheck a troponin again 2 hours from initial test. She has no chest pain or shortness of breath. The vertigo and cold sweats have resolved since coming to the emergency room. EKG has some T-wave inversions and we will repeat EKG with the troponin level. Cardiology as needed. Patient has been in the emergency room now for 2-3 hours without difficulties. No chest pain or shortness of breath. No vertigo issues. She said this is very similar to a prior vertigo type situation she has had in the past. As for the possible CHF situation I do not feel that is an acute problem at this time as the BNP is less than a 1000 and she is not in any distress and her examination is without fluid. I also have a recent echocardiogram done in the past couple of months that shows a stable heart with no major CHF changes. The EKG has some T-wave inversions however this is likely due to post SC from her recent cardiac event. Once again there is no chest pain or shortness of breath. Troponin x2 are negative. Patient feels well. We will discharge patient she will follow up with the emergency crew supervisor. She will come back to the ER with any chest pain. She will come back to the ER with any shortness of breath or lower extremity edema. We will call her in medication of meclizine. Lab Data Attestation: I reviewed the patient's lab results. 05/28/25 09:25 05/28/25 09:25 Labs: Lab Results 05/28/25 05/28/25 05/28/25 Range/Units 09: 11: 11:31 WBC 5.5 (4.8-10.8) K/mm3 RBC 5.11 (4.20-5.40) M/mm3 Hgb 14.4 H (11.7-13.8) g/dL Hct 44.7 H (35.0-42.0) % MCV 87.5 (78.0-102.0) fL MCH 28.2 (27.0-31.0) pg MCHC 32.2 (32-36) g/dL RDW 12.9 (11.6-14.4) % Plt Count 205 (150-420) K/mm3 MPV 10.2 (9.2-11.8) fl Immature Gran % (Auto) 0.4 H (0.0-0.0) % Neut % (Auto) 67.3 (50.0-70.0) % Lymph % (Auto) 16.7 L (18.0-42.0) % [place] % (Auto) 10.1 (2.0-11.0) % Eos % (Auto) 4.6 (1.0-6.0) % Baso % (Auto) 0.9 (0.0-1.0) % Lymph # (Auto) 0.91 L (1.10-4.50) K/mm3 [place] # (Auto) 0.55 (0.10-0.90) K/mm3 Eos # (Auto) 0.25 (0.02-0.50) K/mm3 Baso # (Auto) 0.05 (0.00-0.10) K/mm3 Abs Immat Gran (auto) 0.02 H (0.00-0.00) K/mm3 Absolute Neuts (auto) 3.67 (1.70-7.20) K/mm3 Absolute Nucleated RBC 0.00 (0.00-0.00) K/mm3 Nucleated RBC % 0.0 (0-0.0) % PT 11.1 (9.50-12.1) Seconds INR 1.0 APTT 25.4 (23.9-30.70) Sec Sodium 140 (137-145) mmol/L Potassium 3.9 (3.4-5.0) mmol/L Chloride 106 (98-107) mmol/L Carbon Dioxide 29 (22-30) mmol/L Anion Gap 5 (4-12) mmol/L BUN 17 (7-17) mg/dL Creatinine 1.09 H (0.7-1.0) mg/dL Estim Creat Clear Calc 41 ml/min Estimated GFR 49 L (59 - ) Glucose 159 H (65-110) mg/dL Calculated Osmolality 294 (285-295) mOsm/kg Calcium 9.5 (8.4-10.2) mg/dL Magnesium 1.9 (1.6-2.3) mg/dL Total Bilirubin 1.7 H (0.2-1.3) mg/dL AST 36 (14-36) U/L ALT 36 H (6-35) U/L Alkaline Phosphatase 111 (38-126) U/L Troponin I < 0.012 < 0.012 (0.000-0.034) ng/mL NT-Pro-B Natriuret Pep 736 H (19.9-100) pg/mL Total Protein 7.5 (6.3-8.2) g/dL Albumin 4.4 (3.5-5.1) g/dL Urine Color Light yellow (Yellow) Urine Appearance Clear (Clear) Urine pH 7.0 (5.0-8.0) Ur Specific [place] <= 1.005 L (1.010-1.020) Urine Protein Negative (Negative) Urine Glucose (UA) Negative (Negative) Urine Ketones Negative (Negative) Ur Blood (Man) Negative (Negative) Urine Nitrate Negative (Negative) Urine Bilirubin Negative (Negative) Urine Urobilinogen 0.2 (0.2-1.0) mg/dL Leukocyte Esterase Rfl 2+ H (Negative) [place]/UL Urine RBC None seen (0-2) /hpf Urine WBC 4-6 H (0-3) /hpf Ur Squamous Epith Cells Few (Few) /hpf Urine Bacteria Trace (None) /hpf Imaging Data Attestation: I personally reviewed and interpreted this imaging study as follows: Radiologist's impression: Chest x-ray shows mild CHF pattern Echocardiogram done January 2025 shows Summary 1. Complete two-dimensional, color flow and Doppler transthoracic echocardiogram is performed. 2. Left ventricular chamber dimension is normal. 3. Left ventricular systolic function is normal, estimated at 60-65. 4. The left ventricular diastolic function is grade I diastolic dysfunction. 5. Right ventricular chamber dimension is normal. 6. Right ventricular systolic function is normal. 7. There is mild mitral valve regurgitation. ECG Data EKG #1: Attestation: I personally reviewed and interpreted this ECG as follows: ECG completion date: 05/28/25 ECG completion time: 09:17 Ischemic changes: t wave inversions EKG Interpretation: normal rate, sinus rhythm, no ectopy, PVCs, non-specific ST changes, normal QRS, RBBB and NL axis EKG #2: Attestation: I personally reviewed and interpreted this ECG as follows: ECG completion date: 05/28/25 ECG completion time: 12:05 EKG Interpretation: normal rate, sinus rhythm, no ectopy, non-specific ST changes, normal QRS, normal QT and NL axis Discharge Plan Discharge Clinical Impression: Vertigo Coronary artery disease Qualifiers: Coronary Disease-Associated Artery/Lesion type: unspecified vessel or lesion type [place] vs. transplanted heart: unspecified whether [place] or transplanted heart Associated angina: unspecified whether angina present Qualified Code(s): I25.10 - Atherosclerotic heart disease of [place] coronary artery without angina pectoris Patient Disposition: Home Condition: Stable Instructions: Labyrinthitis (ED), Benign Paroxysmal Positional Vertigo (ED) Additional Instructions: Please follow-up with the primary doctor and the emergency crew supervisor in the next few weeks. Patient Language: Pashto Prescriptions: New meclizine 25 mg tablet 25 mg PO TID PRN (Reason: dizziness) Qty: 30 0RF No Action cholecalciferol (vitamin D3) 10 mcg (400 unit) capsule 10 mcg PO .Q12HR ascorbic acid (vitamin C) 500 mg tablet 250 mg PO QHS omega 9-tki-wka-fish oil [Fish Oil] 60-90-500 mg capsule 1 cap PO DAILY buspirone 15 mg tablet 15 mg PO .Q12HR niacin 500 mg tablet 500 mg PO QHS ezetimibe 10 mg tablet 10 mg PO QHS aspirin 81 mg capsule 81 mg PO DAILY duloxetine [Cymbalta] 60 mg capsule,delayed release(DR/EC) 60 mg PO .Q12HR atorvastatin [Lipitor] 40 mg tablet 40 mg PO DAILY Qty: 90 0RF omeprazole 20 mg capsule,delayed release(DR/EC) 20 mg PO DAILY Qty: 90 1RF clopidogrel 75 mg tablet See Rx Instructions .ROUTE .COMPLEX Qty: 30 0RF Dose Instruction: TAKE ONE TABLET BY MOUTH EVERY MORNING Rx Instructions: TAKE ONE TABLET BY MOUTH EVERY MORNING Follow-up/Referrals: Dany,MD Gerda [Primary Care Provider, Family Practice] Time of Disposition: 12:46
[2025-05-28 09:30] LABS: Hematocrit 44.7 % (35.0-42.0); Hemoglobin 14.4 g/dL (11.7-13.8); Immature Granulocyte Percent A 0.4 % (0.0-0.0); Lymphocytes Absolute Auto 0.91 K/mm3 (1.10-4.50); Mean Corpuscular HGB Conc 32.2 g/dL (32-36); Mean Corpuscular Hemoglobin 28.2 pg (27.0-31.0); Mean Corpuscular Volume 87.5 fL (78.0-102.0); Nucleated Red Blood Cells Absolute Auto 0.00 K/mm3 (0.00-0.00); Nucleated Red Blood Cells Perc 0.0 % (0-0.0); Platelet Count Result 205 K/mm3 (150-420); Red Blood Count 5.11 M/mm3 (4.20-5.40); White Blood Count 5.5 K/mm3 (4.8-10.8)
--- OUTSIDE RECORDS SUMMARY | 2025-05-28 09:40 | XMS_ITS | Encounter Summary ---
Author Organization [facility] Healthcare Address [address] [place] [address] Care Team Providers Care Career Discovery Teacher Name Role Phone Gerda Saenz MD Primary Care Provider [phone] Encounter Details Date Type Department Care Team (Late st Contact Info) Description 02/21/2025 Orders Only [facility] [address] [place] [id number] Scanning, Provider Social History Tobacco Use Types Packs/Day Years Used Date Smoking Tobacco: Never Smokeless Tobacco: Never Comments:Smoking History Pac ks/day: 0 [...] on file Legal Sex Female 1:58 AM [employer] Gender Identity Not on file Sexual Orientation Not on file documented as of this encounter Plan of Treatment Not on file documented as of this encounter Procedures Procedure Name Priority Date/Time Associated Diagnosis Comments SCAN - RADIOLOGY/IMAGING 02/21/2025 documented in this encounter Results * SCAN - RADIOLOGY/IMAGING (02/21/2025) Anatomical Region Laterality Modality Other us Provider Scanning Final Result documented in this encounter Visit Diagnoses Not on filedocumented in this encounter Care Teams Career Discovery Teacher Relationship Specialty Start Date End Date Gerda Saenz MD PCP - General Family Medicine 02/15/23 documented as of this encounter
--- OUTSIDE RECORDS SUMMARY | 2025-05-28 09:40 | XMS_ITS | Patient Health Record ---
Author Organization [facility] Address [address] [place] [address] Care Team Providers Care Franchise Sales Manager Name Role Phone Gerda Saenz MD Primary Care Provider Consuelo Jauregui Unavailable [phone] Allergies Allergen (clinical drug ingredient) Drug/Non Drug Allergy documented on EMR Reaction Allergy Type Onset Date Status Substance with sulfonamide structure and antibacterial mechanism of action (substance) SULFA (SULFONAMIDE ANTIBIOTICS) (uncoded) Unknown Allergy 12/12/2023 Active Reason For Referral No Information Medications Medication SIG (Take, Route, Frequency, Duration) Notes Start Date End Date Status Aspirin 81 MG Tablet Chewable Oral 12/12/2023 Active AFLURIA QUAD 60 MCG (15 MCG X 4)/0.5 ML INTRAMUSCULAR SUSP. *Reorder from GLSS for eRx and Interaction Alerts* 12/12/2023 Active Pentasa 500 MG Capsule Extended Release Oral 12/12/2023 Active Omeprazole 20 MG Capsule Delayed Release Oral 12/12/2023 Active busPIRone HCl 15 MG Tablet 1 tablet Oral Twice a day; Duration: 90 days 05/27/2025 Active Fluticasone Propionate Diskus 50 MCG/ACT Aerosol Powder Breath Activated Inhalation *Reorder from GLSS for eRx and Interaction Alerts* 12/12/2023 Active methylPREDNISolone 4 MG Tablet Therapy Pack Oral 12/12/2023 Not-Taki ng DULoxetine HCl 60 MG Capsule Delayed Release Particles 1 capsule Oral twice a day; Duration: 90 days 05/27/2025 Active Folic Acid 1 MG Tablet Oral 12/12/2023 Active Risedronate Sodium 150 MG Tablet Oral 12/12/2023 Active Vitamin C *Pick strength-form from GLSS for eRX* 12/12/2023 Active MESALAMINE ER 500 MG CAPSULE,EXTENDED RELEASE *Reorder from GLSS for eRx and Interaction Alerts* 12/12/2023 Active Atorvastatin Calcium 40 MG Tablet Oral 12/12/2023 Active Immunizations Vaccine Route Administration [...] History Observation Description Sex Assigned At Female Social History Miscellaneous: Social Info Question Answer Notes Advance Care Planning Are you your own decision-maker Yes Do you have Power of [employer] Solutions Architect for Health or Medi gamal? Yes Tobacco Use: Social Info Question Answer Notes Tobacco Control (Standard) Tobacco use: Nonsmoker Additional Details Category Social Info Options Details Migrated Social History Migrated Social History Alcohol Intake: None 06/29/2018,Tobacco Years: Current some days smoker 01/27/2023,Smoking Status: 0 07/29/2023 Drug/Alcohol: Do you smoke marijuana? Den ies Do you drink alcohol? No Problems Problem Type SNOMED Code ICD Code Onset Dates Problem Status W/U Status Risk Notes Problem Mild recurrent major depression (57193063) Major depressive disorder, recurrent, mild (F33.0) 12/12/19 Active confirmed Problem Generalized anxiety disorder (92658541) Generalized anxiety disorder (F41.1) 12/12/19 Active confirmed Problem Screening for cardiovascular system disease (896550615) Encounter for screening for cardiovascular disorders (Z13.6) Active confirmed Problem Depression screening negative (278384654518302) Negative depression screening (Z13.31) Active confirmed Vital Signs Heart Rate 89 /min 11/26/2024 Height-cm 162.56 cm 11/26/2024 Blood pressure diastolic 80 mm Hg 11/26/2024 Weight-kg 83.64 kg 11/26/2024 Height 64.00 in 11/26/2024 Blood pressure systolic 111 mm Hg 11/26/2024 Weight 184.4 lbs 11/26/2024 BMI 31.65 kg/m2 11/26/2024 Encounters Encounter Location Date [facility] [address] [place] [address] 06/18/2024 Consuelo Gordo Major depressive disorder, recurrent, mild F33.0 and Generalized anxiety disorder F41.[address] [place] [address] 11/26/2024 Consuelo Caro Negative depression screening Z13.31 ; Major depressive disorder, recurrent, mild F33.0 ; Encounter for screening for cardiovascular disorders Z13.6 and Generalized anxiety disorder F41.1 [facility] [address] [place] [address] 05/27/2025 Consuelo Gordo Major depressive disorder, recurrent, mild F33.0 and [...] mg twice a day SLUMS= 28 05/03/24 http_s://www.mario .org/About-Mental -Illness/Mental-H ealth-Conditions http_s://psychceAvacen.[employer]/depressi on/the-cognitive- mywktyvf-dx-ncbnl ssion#treatments http__s://www.nim .nih.gov/health/ topics/mental-hea lth-medications http__s://www.nam i.org/About-Menta l-Illness/Treatme nts/Mental-Health -Medications educated on all medications, benefits, side effects [...] effects including loss of libido, increased suicidal thoughts/behavior s in children and young adults, and serotonin [...] mg twice a day SLUMS= 28 05/03/24 http_s://www.mario .org/About-Mental -Illness/Mental-H ealth-Conditions http_s://psychcen tral.com/depressi on/the-cognitive- izdnrmjf-pk-bkoks ssion#treatments http__s://www.nim .nih.gov/health/ topics/mental-hea lth-medications http__s://www.nam i.org/About-Menta l-Illness/Treatme nts/Mental-Health -Medications educated on all medications, benefits, side effects [...] effects including loss of libido, increased suicidal thoughts/behavior s in children and young adults, and serotonin [...] mg twice a day SLUMS= 28 05/03/24 http_s://www.mario .org/About-Mental -Illness/Mental-H ealth-Conditions http_s://psychcen tral.com/depressi on/the-cognitive- glkyfltl-nf-cslgr ssion#treatments http__s://www.nim h.nih.gov/health/ topics/mental-hea lth-medications http__s://www.nam i.org/About-Menta l-Illness/Treatme nts/Mental-Health -Medications educated on all medications, benefits, side effects [...] effects including loss of libido, increased suicidal thoughts/behavior s in children and young adults, and serotonin [...] neurotoxicity and interactions with prescribed medications. 05/27/2025 Major depressive disorder, recurrent, mild (ICD-10 [...] mg twice a day SLUMS= 28 05/03/24 http_s://www.mario .org/About-Mental -Illness/Mental-H ealth-Conditions http_s://psychcen Railpodl.com/depressi on/the-cognitive- mzlgnvwn-ue-wpaoj ssion#treatments http__s://www.nim h.nih.gov/health/ topics/mental-hea lth-medications http__s://www.nam i.org/About-Menta l-Illness/Treatme nts/Mental-Health -Medications educated on all medications, benefits, side effects [...] effects including loss of libido, increased suicidal thoughts/behavior s in children and young adults, and serotonin [...] mg twice a day SLUMS= 28 05/03/24 http_s://www.mario .org/About-Mental -Illness/Mental-H ealth-Conditions http_s://psychcen tral.com/depressi on/the-cognitive- tpjlmazn-ih-rnunm ssion#treatments http__s://www.nim h.nih.gov/health/ topics/mental-hea lth-medications http__s://www.nam i.org/About-Menta l-Illness/Treatme nts/Mental-Health -Medications educated on all medications, benefits, side effects [...] effects including loss of libido, increased suicidal thoughts/behavior s in children and young adults, and serotonin [...] mg twice a day SLUMS= 28 05/03/24 http_s://www.mario .org/About-Mental -Illness/Mental-H ealth-Conditions http_s://psychcen tral.com/depressi on/the-cognitive- augzfcns-uo-ersop ssion#treatments http__s://www.nim h.nih.gov/health/ topics/mental-hea lth-medications http__s://www.nam i.org/About-Menta l-Illness/Treatme nts/Mental-Health -Medications educated on all medications, benefits, side effects [...] effects including loss of libido, increased suicidal thoughts/behavior s in children and young adults, and serotonin [...] mg twice a day SLUMS= 28 05/03/24 http_s://www.mario .org/About-Mental -Illness/Mental-H ealth-Conditions http_s://psychcen Railpodl.com/depressi on/the-cognitive- mdgpktdz-dv-eokhx ssion#treatments http__s://www.[facility].nih.gov/health/ topics/mental-hea lth-medications http__s://www.nam i.org/About-Menta l-Illness/Treatme nts/Mental-Health -Medications educated on all medications, benefits, side effects [...] effects including loss of libido, increased suicidal thoughts/behavior s in children and young adults, and serotonin [...] mg twice a day SLUMS= 28 05/03/24 http_s://www.mario .org/About-Mental -Illness/Mental-H ealth-Conditions http_s://psychcen tral.com/depressi on/the-cognitive- jeznpnqo-fa-xswwo ssion#treatments http__s://www.nim .nih.gov/health/ topics/mental-hea [facility]-medications http__s://www.nam i.org/About-Menta l-Illness/Treatme nts/Mental-Health -Medications educated on all medications, benefits, side effects [...] effects including loss of libido, increased suicidal thoughts/behavior s in children and young adults, and serotonin [...] or national office of the Alzheimer's Association (2-902-259-376 0; http://www.alz .org), the Alzheimer's Disease Education and Referral Center (ADEAR) (3-304-070-715 0; http://www.joseph .nih.gov/Alzhe imers/), referral to the local chapter or national office of the Alzheimer's Association (3-019-037-511 0; http://www.alz .org), the Alzheimer's Disease Education and Referral Center (ADEAR) (0-516-692-712 0; http://www.joseph .nih.gov/Alzhe naeers/), 1. Major depression- Cymbalta 60 mg twice a day patient reported nerve pain and in pain management also for back and leg pain- plan to see neurologist see PCP hx anxiety and nerve pain- flare ups disucss and educated on Cymbalta 60 mg twice a day pain management 2. Anxiety- Buspar 15 mg twice a day SLUMS= 28 05/03/24 http_s://www.mario .org/About-Mental -Illness/Mental-H ealth-Conditions http_s://23press/depressi on/the-cognitive- emwkiuvn-et-vcdea ssion#treatments http__s://www.nim .nih.gov/health/ topics/mental-hea lth-medications http__s://www.nam i.org/About-Menta l-Illness/Treatme nts/Mental-Health -Medications educated on all medications, benefits, side effects [...] effects including loss of libido, increased suicidal thoughts/behavior s in children and young adults, and serotonin [...] interactions with prescribed medications. Plan Of Treatment No Information Insurance Providers Payer Name Payer Address Payer Phone Subscriber Number Group Number Insured Name Patient Relationship to Insured Coverage Start Date Coverage End Date [employer] Medicare Replacemen t/Advantag e - P[place] [address] [place] [phone] [id number] LESLIE GROSS Self - patient is the insured Medicare-I l Medicare [address] [place] [phone] [id number] LESLIE GROSS Self - patient is the insured Medical (General) History Medical History History ICD Code Problems: Generalized anxiety disorder Recurrent major depressive episodes, mil d heart attack 02/21/25 Surgical History Surgery Date(Month/Year) Removal of gallbladder (50952) Heart surgery 12/23/2010
--- OUTSIDE RECORDS SUMMARY | 2025-05-28 09:40 | XMS_ITS | Clinical Summary ---
Author Organization [facility] Address [address] [place] [address] Care Team Providers Care Test Car Driver Name Role Phone Unavailable Primary Care Provider Unavailabl e Source Comments [facility],non-owned Affiliates and Associated Physician Practices is amultiple site organization consisting of ambulatory clinics and hospital sitesin [place], [place], [place] and [place]. This disclosure is being madepursuant to the Care Everywhere program and may not contain all information available regarding this patient. 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
--- OUTSIDE RECORDS SUMMARY | 2025-05-28 09:40 | XMS_ITS | Clinical Summary ---
Author Organization [facility] [address] Address [address] [place] [address] Care Team Providers Care Meat Boner And Slicer Name Role Phone Gerda Saenz MD Primary Care Provider [phone] Allergies Active Allergy Reactions Criticality Noted Date Comments Sulfa (Sulfonamide Antibiotics) Medications busPIRone (BUSPAR) 15 mg tablet take 1 tablet (15MG) by oral route 2 times every day 0 05/11/20 12 Active aspirin (ASPIRIN LOW DOSE) 81 mg tablet take 1 Tablet (81MG) by oral route every day 0 05/11/20 12 Active niacin ER (NIASPAN EXTENDED-RELEASE ) 500 mg CR tablet take 1 tablet (500MG) by oral route every day at bedtime after a low-fat snack 0 05/11/[address] (CYMBALTA) 60 mg capsule Take 1 capsule (60 mg total) by mouth daily Active vit B abyg-Q-rlobp acid-vit D3 800 mcg- 2,000 unit tablet,chewable Take by mouth Active omeprazole (PriLOSEC) 20 mg capsule 09/21/19 22 Active alendronate (FOSAMAX) 70 mg tabletIndication s:Age-related osteoporosis without current pathological fracture 1 tablet by mouth weekly in morning with full glass of water on empty stomach.Do not take anything else by mouth or lie down for next 30 min 4 tablet 11 10/16/19 22 Active clopidogreL (PLAVIX) 75 mg tablet Take 1 tablet (75 mg total) by mouth daily 02/23/20 25 Active atorvastatin (LIPITOR) 80 mg tabletIndication s:Coronary artery disease involving little traverse coronary artery of little traverse heart without angina pectoris Take 1 tablet (80 mg total) by mouth daily 90 tablet 3 03/14/20 25 026 Active ezetimibe (ZETIA) 10 mg tablet TAKE ONE TABLET BY MOUTH DAILY 90 tablet 2 05/16/20 25 Active ezetimibe (ZETIA) 10 mg tablet TAKE 1 TABLET (10 MG TOTAL) BY MOUTH DAILY 90 tablet 2 08/17/19 25 025 Discontinued Active Problems Problem Noted Date Diagnosed [...] knee 09/30/2020 Coronary artery disease invo lving little traverse coronary artery of little traverse heart without angina pectoris 12/26/2018 Dyslipidemia 06/28/2017 [...] CABG 12/26/2018 09/30/2020 Pruritus of vagina 12/31/2015 Urinary tract bacterial infections 12/17/2015 10/15/2021 Encounters Date Type Department Care Team Description 03/14/2025 10:00 AM CDT Office Visit [facility] Cardiology [address] [place] [phone] Corrie Rodriguez NP Coronary artery disease involving little traverse coronary artery of little traverse heart without angina pectoris (Primary Dx); Hx of CABG; History of non-ST elevation myocardial infarction (NSTEMI); Status post coronary angiogram; Hospital discharge follow-up 02/25/2025 Orders Only [facility] Cardiology [address] [place] [phone] Kathi Castillo MD 02/25/2025 Telephone [facility] Cardiology [address] [place] [phone] Ariane Tesfaye NP from Last 3 Months Immunizations Immunization Administration Dates Next Due Flucelvax [...] Anxiety Depression Coronary artery disease invo lving little traverse coronary artery of little traverse heart without angina pectoris 12/26/2018 Dyslipidemia 06/28/2017 [...] on file Legal Sex 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:58 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 Gender Identity Not on file Sexual Orientation Not on file Last Filed Vital Signs Vital Sign Reading Time Taken Comments Blood Pressure 110/64 03/14/2025 9:54 AM CDT Pulse 80 03/14/2025 9:54 AM CDT Temperature 35.8 C (96.4 F) 09/30/2020 1:23 PM STRATEGIC COMMUNICATIONS MANAGER Respiratory Rate 98 02/15/2023 9:32 AM CDT Oxygen Saturation 97% 03/14/2025 9:54 AM CDT Inhaled Oxygen Concentration - - Weight 83.5 kg (184 lb) 03/14/2025 9:54 AM CDT Height 162.6 cm (5' 4) 03/14/2025 9:54 AM CDT Body Mass Index 31.58 03/14/2025 9:54 AM CDT Plan of Treatment Health Maintenance Due Date Last Done Comments Colon Cancer Screening-Colonoscopy 1950 Hepatitis C Screening 1949 Hepatitis B Screening 1967 Pneumococcal vaccine 65+ (1 of 2 - PCV) 1968 Zoster Vaccine (1 of 2) 1999 Depression Screening 10/15/2022 10/15/2021, 10/01/19 21 Fall Risk Assessment 10/15/2022 10/15/2021, 10/01/19 21 Well Visit 65+ 10/15/2022 10/15/2021, 09/30/2020 Osteoporosis Screening-Bone Density Scan 12/06/2022 12/06/2020 Covid-19 Vaccine (3 - 2024-2 6 season) 2025 10/23/2020, 09/24/2020 Influenza Vaccine (#1) 2025 4, 07/26/2023, 08/17/2021, Additional history exists DTaP/Tdap/Td Vaccine (3 - Td or Tdap) 04/17/2034 04/17/2024, 07/25/2007 Procedures Procedure Name Priority Date/Time Associated Diagnosis Comments POCT LIPID PANEL Routine 03/14/2025 9:55 AM CDT Coronary artery disease involving little traverse coronary artery of little traverse heart without angina pectoris HM DEXA SCAN Routine 12/06/2020 from Last 3 Months or Most Recently Relevant to Health Maintenance Results * (ABNORMAL) POCT lipid panel (03/14/2025 9:55 AM CDT) Cholesterol, POC 132 <200 MG/DL HDL, POC 38(A) >=40 mg/dL Triglycerides, POC 93 <=149 mg/dL LDL Cholesterol POC 75 <=129 mg/dL Chol/HDL Ratio, POC 1.9 NONE Non-HDL Cholesterol, POC 93 NONE mg/dL Cholesterol Total, POC 132 30 - 199 mg/dL Capillary blood 03/14/2025 9 :55 AM CDT Corrie Rodriguez NP POINT OF CARE TEST ORDERA BLES Final Result * (ABNORMAL) HM DEXA SCAN (12/06/2020) Scribed HM Deca Scan Abnormal 12/06/2020 Historical Provider MD HEALTH MAINTENANCE Final Result from Last 3 Months or Most Recently Relevant to Health Maintenance Insurance AETNA MEDICARE AETNA MEDICARE Care Teams Meat Boner And Slicer Relationship Specialty Start Date End Date Gerda Saenz MD PCP - General Family Medicine 02/15/23
--- OUTSIDE RECORDS SUMMARY | 2025-05-28 09:40 | XMS_ITS | Encounter Summary ---
Author Organization [facility] Address [address] [place] [phone] Care Team Providers Care Income Tax Investigator Name Role Phone Robert Kang MD Primary Care Provider [phone] Mateo Chavez MD Primary Care Provider + Mateo Chavez MD Primary Care Provider + Gerda Saenz MD Primary Care Provider [phone] Encounter Details Date Type Department Care Team (Late st Contact Info) Description 03/29/2018 Orders Only [facility] [address] [place] [address] [address] [place] [address] Robert Kang MD [address] [place] [address] Social History Tobacco Use Types Packs/Day Years Used Date Smoking Tobacco: Never Comments:Smoking History Pac ks/day: 0 Packs Alcohol Use Standard Drinks/Week Comments No 0 (1 standard drink = 0.6 oz pur e alcohol) Comments Unknown Sex and Gender Information Value Date Recorded Sex Assigned at Not on file 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 Gender Identity Not on file Sexual Orientation Not on file documented as of this encounter Plan of Treatment Not on file documented as of this encounter Visit Diagnoses Not on filedocumented in this encounter Care Teams Income Tax Investigator Relationship Specialty Start Date End Date Robert Kang MD PCP - General 05/11/12 09/21/20 Mateo Chavez MD PCP - General Internal Medicine 09/22/20 10/14/22 Mateo Chavez MD [address] [place], [place] [address]LOLI GLEASON [address] [place] [id number] PCP - General Internal Medicine 12/24/22 02/14/23 Gerda Saenz MD [address] [place] [address] DARA GLEASON [address] [place] [address] PCP - General Family Medicine 02/15/23 documented as of this encounter
[2025-05-28 09:41] LABS: Magnesium 1.9 mg/dL (1.6-2.3)
[2025-05-28 09:42] LABS: Alanine Aminotransferase 36 U/L (6-35); Albumin Level 4.4 g/dL (3.5-5.1); Alkaline Phosphatase 111 U/L (38-126); Anion Gap 5 mmol/L (4-12); Aspartate Amino Transferase 36 U/L (14-36); Bilirubin,Total 1.7 mg/dL (0.2-1.3); Blood Urea Nitrogen 17 mg/dL (7-17); Calcium 9.5 mg/dL (8.4-10.2); Carbon Dioxide 29 mmol/L (22-30); Chloride 106 mmol/L (98-107); Estimated CRCL calculation 41 ml/min; Estimated Glomerular Filt Rate 49; Glucose 159 mg/dL (65-110); Osmolality Calculated 294 mOsm/kg (285-295); Potassium 3.9 mmol/L (3.4-5.0); Sodium 140 mmol/L (137-145); Total Protein 7.5 g/dL (6.3-8.2)
[2025-05-28 09:50] LABS: INR 1.0; Partial Thromboplastin Time 25.4 Sec (23.9-30.70); Prothrombin Time 11.1 Seconds (9.50-12.1)
[2025-05-28 09:53] LABS: NT Pro B Type Natriuretic Pept 736 pg/mL (19.9-100); Troponin I < 0.012 ng/mL (0.000-0.034)
--- OUTSIDE RECORDS SUMMARY | 2025-05-28 10:56 | XMS_ITS | Clinical Summary ---
Author Organization [facility] Address [address] [place] [address] Care Team Providers Care Electronic Lab Technician Name Role Phone Unavailable Primary Care Provider Unavailabl e Source Comments [facility],non-owned Affiliates and Associated Physician Practices is amultiple site organization consisting of ambulatory clinics and hospital sitesin [place], [place], [place] and [place]. This disclosure is being madepursuant to the Care Everywhere program and may not contain all information available regarding this patient. 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
--- OUTSIDE RECORDS SUMMARY | 2025-05-28 10:56 | XMS_ITS | Encounter Summary ---
Author Organization [facility] Address [address] [place] [phone] Care Team Providers Care General Milling Superintendent Name Role Phone Robert Kang MD Primary Care Provider [phone] Mateo Chavez MD Primary Care Provider + Mateo Chavez MD Primary Care Provider + Gerda Saenz MD Primary Care Provider [phone] Encounter Details Date Type Department Care Team (Late st Contact Info) Description 03/29/2018 Orders Only [facility] [address] [place] [address] [address] [place] [address] Robert Kang MD [address] [place] [address] Social History Tobacco Use Types Packs/Day Years Used Date Smoking Tobacco: Never Comments:Smoking History Pac ks/day: 0 Packs Alcohol Use Standard Drinks/Week Comments No 0 (1 standard drink = 0.6 oz pur e alcohol) Comments Unknown Sex and Gender Information Value Date Recorded Sex Assigned at Not on file 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 Gender Identity Not on file Sexual Orientation Not on file documented as of this encounter Plan of Treatment Not on file documented as of this encounter Visit Diagnoses Not on filedocumented in this encounter Care Teams General Milling Superintendent Relationship Specialty Start Date End Date Robert Kang MD PCP - General 05/11/12 09/21/20 Mateo Chavez MD PCP - General Internal Medicine 09/22/20 10/14/22 Mateo Chavez MD [address] [place], [place] [address]LOLI GLEASON [address] [place] [address] PCP - General Internal Medicine 12/24/22 02/14/23 Gerda Saenz MD [address] [place] [address] DARA GLEASON [address] [place] [address] PCP - General Family Medicine 02/15/23 documented as of this encounter
--- OUTSIDE RECORDS SUMMARY | 2025-05-28 10:56 | XMS_ITS | Clinical Summary ---
Author Organization [facility] [address] Address [address] [place] [address] Care Team Providers Care Alley Tender Name Role Phone Gerda Saenz MD Primary Care Provider [phone] Allergies Active Allergy Reactions Criticality Noted Date [...] total) by mouth daily Active vit B [id number] acid-vit D3 800 mcg- 2,000 unit tablet,chewable [...] 80 mg tabletIndication s:Coronary artery disease involving [place] coronary artery of [place] heart without angina pectoris Take 1 tablet [...] knee 09/30/2020 Coronary artery disease invo lving [place] coronary artery of [place] heart without angina pectoris 12/26/2018 Dyslipidemia 06/28/2017 [...] Description 03/14/2025 10:00 AM CDT Office Visit [facility] Cardiology [address] [place] [phone] Corrie Rodriguez NP Coronary artery disease involving [place] coronary artery of [place] heart without angina pectoris (Primary Dx); Hx of CABG; History of non-ST elevation myocardial infarction (NSTEMI); Status post coronary angiogram; Hospital discharge follow-up 02/25/2025 Orders Only [facility] Cardiology [address] [place] [phone] Kathi Castillo MD 02/25/2025 Telephone [facility] Cardiology [address] [place] [phone] Ariane Tesfaye NP from Last 3 Months [...] Anxiety Depression Coronary artery disease invo lving [place] coronary artery of [place] heart without angina pectoris 12/26/2018 Dyslipidemia 06/28/2017 [...] on file 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 Gender Identity Not on file Sexual Orientation Not on file Last Filed Vital Signs Vital Sign Reading Time Taken Comments Blood Pressure 110/64 03/14/2025 9:54 AM CDT Pulse 80 03/14/2025 9:54 AM CDT Temperature 35.8 C (96.4 F) 09/30/2020 1:23 PM CARBON PASTE MIXER OPERATOR Respiratory Rate 98 02/15/2023 9:32 AM CDT [...] 9:55 AM CDT Coronary artery disease involving [place] coronary artery of [place] heart without angina pectoris HM DEXA SCAN [...] Insurance AETNA MEDICARE AETNA MEDICARE Care Teams Alley Tender Relationship Specialty Start Date End Date Gerda Saenz MD PCP - General Family Medicine 02/15/23
--- OUTSIDE RECORDS SUMMARY | 2025-05-28 10:56 | XMS_ITS | Encounter Summary ---
Author Organization 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
--- NOTE | 2025-05-28 11:30 | ECG_ITS ---
Test Date: 2025-05-28 11:20:28 Measurements Intervals [place] Rate: 71 P: 48 NE: 168 QRS: 62 QRSD: 101 T: -60 QT: 390 QTc: 427 Interpretive Statements SINUS RHYTHM LEFT VENTRICULAR HYPERTROPHY AND ST-T CHANGE [VOLTAGE CRITERIA PLUS ST/T ABNORMALITY] INFERIOR MYOCARDIAL INFARCTION , OF INDETERMINATE AGE [40+ ms Q WAVE AND/OR ST/T ABNORMALITY IN II/aVF] consider ischemia Electronically Signed On 05-28-2025 21:30:57 BAND LEADER by Shashi Colon M.D.
[2025-05-28 11:37] LABS: Add Urine Microscopic? YES; Appearance Urine Clear (Clear); Glucose Urine UA Negative (Negative); Leukocyte Esterase Ur 2+ LEU/UL (Negative); Nitrate Urine Negative (Negative); Specific Grav Ur <= 1.005 (1.010-1.020)
[2025-05-28 12:11] LABS: Troponin I < 0.012 ng/mL (0.000-0.034)
--- NOTE | 2025-05-30 13:40 | PC.NURSE ---
urine culture, final , no growth
== END 2025-05-28 12:59 | disposition home or self-care (01) ==
PROVIDERS: Emergency Provider Emergency Medicine; PCP Family Medicine
DX: R42 Dizziness and giddiness (principal); I25.2 Old myocardial infarction; I25.810 Atherosclerosis of coronary artery bypass graft(s) without angina pectoris; Z95.1 Presence of aortocoronary bypass graft; Z98.890 Other specified postprocedural states
CPT/HCPCS: 36415; 71046; 80053; 81001; 83735; 83880; 84484; 85025; 85610; 85730; 87086; 93005; 99284